=== PATIENT | female | born 1965 | race Caucasian/White ===

== ENCOUNTER 2020-10-26 01:26 | Emergency (ER) | payer MEDICARE, MEDICAID, SELFPAY ==
[2020-10-26 01:27] VITALS: BP 126/79; PULSE 91; RESP 18; TEMP 36.7; O2SAT 95
--- NOTE | 2020-10-26 01:36 | W.ED.SEIZURE ---
HPI - Seizure General: Chief Complaint: Seizure Stated Complaint: SEIZURE Time Seen by Provider: 10/26/20 01:27 Source: patient and EMS Mode of arrival: EMS Limitations: no limitations History of Present Illness: HPI Narrative: 55-year-old female who has a history of seizures and states she has not taken her Depakote in 2 weeks because she has been out of it. Patient had 3 witnessed seizures tonight after drinking. She states she has some body aches and a mild headache that is typical after her seizures. She denies any chest pain denies hitting her head. She denies any vomiting or diarrhea. Associated symptoms: Deny chest pain, chills or fever(s) Review of Systems Const: Denies: fever(s), chills, body aches or change in appetite Eyes: Denies: blurry vision or eye discomfort ENMT: Denies: throat pain or dental pain Card: Denies: chest pain Resp: Denies: dyspnea GI: Denies: abdominal pain, nausea, vomiting or diarrhea : Denies: dysuria Musc: Denies: neck pain or back pain Skin/Breast: Denies: rash Neuro: Reports: seizure-like activity Psych: Denies: depression Roderick/Lymph: Denies: easy bruising All/Imm: Denies: urticaria PFSH ED PFSH: Medical History (Updated 10/26/20 @ 02:18 by Nicol Paz MD) Chest pain COPD (chronic obstructive pulmonary disease) CVA (cerebral vascular accident) Dental infection Essential hypertension GERD (gastroesophageal reflux disease) Insect bites Mixed hyperlipidemia Oral candidiasis Surgical History History of appendectomy History of carpal tunnel surgery History of tubal ligation S/P insertion of iliac artery stent 3 stents right leg Social History Smoking and tobacco status: current every day smoker Quit status (tobacco): not considering quitting Second hand smoke exposure: No Smoking risk assessment/counseling performed?: No Alcohol intake: never Desire information about alcohol rehabilitation?: No Counseling given: No Desire information about substance/drug rehabilitation?: No Counseling given: No Physical Exam Const: COMMON NORMALS: no acute distress, patient oriented x3 and healthy appearing HENMT: COMMON NORMALS: normocephalic and atraumatic HEAD & SCALP: normocephalic and atraumatic Eye: COMMON NORMALS: Equal, round and reactive pupils present and EOMs intact bilaterally PUPIL: Yes Equal, round and reactive pupils present Neck/C-Spine: COMMON NORMALS: full ROM and supple Chest: COMMONS NORMALS: normal inspection of the chest and normal palpation of entire chest wall Resp: COMMON NORMALS: normal respiratory effort, No retractions, No use of accessory muscles and clear to auscultation bilaterally AUSCULTATION: clear to auscultation bilaterally Cardio: COMMON NORMALS: regular rate, regular rhythm and No murmurs present (Cardio) RATE: regular rate RHYTHM: regular rhythm GI: COMMON NORMALS: Normal to inspection, nondistended, normoactive bowel sounds present, Soft to palpation, non-tender and no masses PALPATION: Yes Soft to palpation Extremity: COMMON NORMALS: normal to inspection and full ROM Neuro: COMMON NORMALS: patient oriented x3, moves all extremities and no focal motor deficits Psych: COMMON NORMALS: mental status grossly normal, Normal thought process present and cooperative THOUGHT PROCESS: Normal thought process present Skin: COMMON NORMALS: no rashes or lesions noted and no wounds GENERAL SKIN EXAM: no rashes or lesions noted Course Vital Signs: Vital signs: Vital Signs Temperature 98.1 F 10/26/20 01:27 Pulse Rate 105 H 10/26/20 03:15 Respiratory Rate 18 10/26/20 03:15 Blood Pressure 92/56 10/26/20 03:15 Pulse Oximetry 92 10/26/20 03:15 MDM - Seizure MDM Narrative: Medical decision making narrative: pt presents here with seizure and has a hx of seizures. She has been noncompliant with her depakote. She has been seizure free here and labs are normal. She is to take her meds and return if worsening. Lab Data: Labs: Lab Results 10/26/20 10/26/20 10/26/20 Range/Units 00:15 00:15 01:42 WBC 8.2 (4.0-10.0) 10^3/ uL RBC 4.94 (4.1-5.3) 10^6/u L Hgb 14.4 (11.5-15.3) g/dL Hct 43.6 (37.0-47.0) % MCV 88.3 (81-99) fL MCH 29.1 (28.0-34.0) pg MCHC 33.0 (30.0-36.0) g/dL RDW 12.6 (12.1-15.1) % Plt Count 245 (130-400) 10^3/c mm MPV 11.0 H (7.4-10.4) fL Neut % (Auto) 40.3 % Lymph % (Auto) 50.2 % [place] % (Auto) 7.3 % Eos % (Auto) 1.3 % Baso % (Auto) 0.7 % Neut # (Auto) 3.29 (1.8-7.7) 10^3/u L Lymph # (Auto) 4.1 (0.8-4.8) 10^3/u L [place] # (Auto) 0.6 (0.2-0.9) 10^3/u L Eos # (Auto) 0.1 (0.0-0.8) 10^3/u L Baso # (Auto) 0.1 (0.0-0.1) 10^3/u L Nucleated RBC % (a uto) 0 % Nucleated RBCs # 0.0 /100WBC Sodium 139 (136-145) mmol/L Potassium 3.4 L (3.5-5.1) mmol/L Chloride 103 (98-107) mmol/L Carbon Dioxide 20 L (22-29) mmol/L Anion Gap 19.4 H (5-19) BUN 11 (6-20) mg/dL Creatinine 0.6 (0.5-0.9) mg/dL GFR Calculation 104.6 (90-130) mL/min Glucose 98 (65-115) mg/dL Calculated Osmolal ity 287 (285-295) mOsm/k g Calcium 8.8 (8.5-10.5) mg/dL Total Bilirubin 0.2 (0.15-1.2) mg/dL AST 12 (0-32) U/L ALT 18 (0-33) U/L Alkaline Phosphata se 77 (35-105) IU/L Total Protein 6.7 (6.6-8.7) g/dL Albumin 4.0 (3.5-5.2) g/dL Globulin 2.7 (1.3-4.6) g/dL Valproic Acid 2.8 L (50-100) ug/mL Discharge Plan Discharge Patient Disposition: Home Clinical Impression: Generalized seizure Condition: Stable Prescriptions: New Depakote 250 mg tablet,delayed release (DR/EC) 250 mg PO Q12H Qty: 60 RF: 1 No Action ranolazine [Ranexa] 500 mg tablet extended release 12 hr 500 mg PO DAILY RF: 0 albuterol sulfate [ProAir HFA] 90 mcg/actuation HFA aerosol inhaler 2 puff INHALATION Q6H PRN (Reason: shortness of breath or wheezing) 90 Days Qty: 8.5 RF: 1 atorvastatin 40 mg tablet 40 mg PO DAILY 90 Days Qty: 90 RF: 1 clopidogrel 75 mg tablet 75 mg PO DAILY 90 Days Qty: 90 RF: 1 losartan 25 mg tablet 25 mg PO DAILY 90 Days Qty: 90 RF: 1 metoprolol succinate 25 mg tablet extended release 24 hr 25 mg PO DAILY 90 Days Qty: 90 RF: 1 pantoprazole 40 mg tablet,delayed release (DR/EC) 40 mg PO DAILY 90 Days Qty: 90 RF: 1 nitroglycerin 0.3 mg tablet, sublingual 0.3 mg sublingual Q5M Qty: 30 RF: 2 aspirin 81 mg tablet,chewable PO RF: 0 Magic Mouthwash 5 - 10 ml PO QID PRN (Reason: oral candidiasis) 14 Days Qty: 400 RF: 0 Discharge Orders: Discharge ED (Routine); Ordered 10/26/20 Ordered By: Nicol Paz Referrals: Esperanza Coon CUSTOMER CONTACT REPRESENTATIVE-C [Primary Care Provider] - 1-3 days Discharge Diet: Advance as tolerated Discharge Activity: Resume usual activity Patient Instructions: Recurrent Seizures Adult (ED) Coding Level of Care Code ED Boom Boss for Chg Fwd Exam Comprehensive
[2020-10-26 01:48] LABS: Basophils # 0.1 10^3/uL (0.0-0.1); Basophils % 0.7 %; Eosinophils # 0.1 10^3/uL (0.0-0.8); Eosinophils % 1.3 %; Hematocrit 43.6 % (37.0-47.0); Hemoglobin 14.4 g/dL (11.5-15.3); Lymphocytes # 4.1 10^3/uL (0.8-4.8); Lymphocytes % 50.2 %; Mean Corpuscular Hemoglobin 29.1 pg (28.0-34.0); Mean Corpuscular Volume 88.3 fL (81-99); Monocytes # 0.6 10^3/uL (0.2-0.9); Monocytes % 7.3 %; Neutrophils # 3.29 10^3/uL (1.8-7.7); Neutrophils % 40.3 %; Nucleated Red Blood Cells % 0 %; Platelet Count 245 10^3/cmm (130-400); Red Blood Count 4.94 10^6/uL (4.1-5.3); Red Cell Distribution Width 12.6 % (12.1-15.1); White Blood Count 8.2 10^3/uL (4.0-10.0)
[2020-10-26 02:03] LABS: Alanine Aminotransferase 18 U/L (0-33); Alkaline Phosphatase 77 IU/L (35-105); Aspartate Amino Transferase 12 U/L (0-32); Blood Urea Nitrogen 11 mg/dL (6-20); Calcium 8.8 mg/dL (8.5-10.5); Carbon Dioxide 20 mmol/L (22-29); Chloride 103 mmol/L (98-107); Globulin 2.7 g/dL (1.3-4.6); Glomerular Filtration Rate 104.6 mL/min (90-130); Glucose 98 mg/dL (65-115); Osmolality Calculated 287 mOsm/kg (285-295); Sodium 139 mmol/L (136-145); Total Bilirubin 0.2 mg/dL (0.15-1.2); Total Protein 6.7 g/dL (6.6-8.7)
[2020-10-26] MEDS: LORazepam 2 mg/mL INJ 1 mL 1 MG IVP (02:06)
[2020-10-26 02:08] VITALS: BP 105/68; PULSE 95; RESP 18; O2SAT 94
[2020-10-26 02:08] LABS: Valproic Acid Level 2.8 ug/mL (50-100)
[2020-10-26] MEDS: divalproex DR 500 mg Tablet PO (02:20)
[2020-10-26 02:24] LABS: Anion Gap 19.4 (5-19); Potassium 3.4 mmol/L (3.5-5.1)
[2020-10-26 03:15] VITALS: BP 92/56; PULSE 105; RESP 18; O2SAT 92
== END 2020-10-26 03:16 | disposition home or self-care (01) ==
PROVIDERS: Emergency Provider Emergency Medicine; PCP Nurse Practitioner Family
DX: G40.409 Other generalized epilepsy and epileptic syndromes, not intractable, without status epilepticus (principal); J44.9 Chronic obstructive pulmonary disease, unspecified; Z86.73 Personal history of transient ischemic attack (TIA), and cerebral infarction without residual deficits; I10 Essential (primary) hypertension; E78.2 Mixed hyperlipidemia; F17.210 Nicotine dependence, cigarettes, uncomplicated
CPT/HCPCS: 80053; 80164; 85025; 96374; 99283; J2060

== ENCOUNTER → 2020-11-17 11:38 | Outpatient (BNVA) | payer MEDICARE, SELFPAY | PROVIDERS: PCP Nurse Practitioner Family; Visit Provider Nurse Practitioner Family | DX: N39.0 Urinary tract infection, site not specified (principal); A49.9 Bacterial infection, unspecified; R31.29 Other microscopic hematuria | CPT/HCPCS: 81003; 87086 ==

== ENCOUNTER → 2021-01-05 08:46 | Outpatient (BNVA) | payer MEDICARE, SELFPAY | PROVIDERS: PCP Nurse Practitioner Family; Visit Provider Nurse Practitioner Family | DX: E78.2 Mixed hyperlipidemia (principal); I10 Essential (primary) hypertension; E55.9 Vitamin D deficiency, unspecified; L02.214 Cutaneous abscess of groin; Z79.899 Other long term (current) drug therapy | CPT/HCPCS: 80053; 80061; 81003; 82306; 83036; 84443; 85025 ==

== ENCOUNTER 2021-01-10 06:42 | Outpatient (CLI) | payer MEDICARE, MEDICAID, SELFPAY ==
--- NOTE | 2021-01-10 06:49 | USCV_ITS ---
Nicky Rhodes Age: 55 Gender: F : 1965 Exam Date: 01/10/2021 07:01 Ordering Phys: Cristin Escobedo MD ([email or web address]) Technologist: Chioma Kwong [place] [facility] [place]ication: PRIOR STENTS BILATERALLY AND NOW LEG PAIN Risk Factors: Smoker Previous Vascular Surgery: Stents bilaterally RIGHT LEFT BP: 118.0 / BP: 120.0/ 0 0 Waveform Velocity (cm/s) Velocity (cm/s) Waveform Biphasic 94.8 Iliac Prox 117.4 Biphasic Biphasic Iliac Mid Biphasic 93.9 105.2 Biphasic 88.6 Iliac Distal 101.5 Biphasic Biphasic 66.2 BREASTFEEDING PROGRAM COORDINATOR 44.9 Biphasic Biphasic 70.6 SFA Prox 57.1 Biphasic Biphasic 63.9 SFA Mid 54.9 Biphasic Biphasic 59.5 SFA Dist 54.2 Biphasic Biphasic 43.0 POP 32.1 Biphasic Biphasic 65.1 BUTTON BRADDER 49.9 Biphasic Biphasic 27.6 DPA 25.7 Biphasic 1.0 ERIC 1.0 FINDINGS rt fire captain marine 108 rt dpa 120 lt fire captain marine 105 lt dpa 118 Normal resting ABIs bilaterally Normal Doppler flow velocities Mild to moderate plaque in the distal iliac on the right side Minimal plaques are noted in the iliac artery on the left side CONCLUSIONS No significant arterial obstruction, based on the above findings Mild to moderate plaques in the right iliac and minimal plaques in the left iliac artery . No similar previous studies are available for comparison Dr Lisbet Omer MD [facility] (Electronically Signed) Final Date: 10 January 2021 14:13 S
== END 2021-01-10 06:43 | disposition home or self-care (01) ==
PROVIDERS: PCP Nurse Practitioner Family; Visit Provider Internal Medicine Cardiovascular Disease
DX: I73.9 Peripheral vascular disease, unspecified (principal); M79.604 Pain in right leg; M79.605 Pain in left leg
CPT/HCPCS: 93925

== ENCOUNTER → 2021-01-24 11:41 | Outpatient (BNVA) | payer MEDICARE, SELFPAY | PROVIDERS: PCP Nurse Practitioner Family; Visit Provider Nurse Practitioner Family | DX: A49.9 Bacterial infection, unspecified (principal); N39.0 Urinary tract infection, site not specified | CPT/HCPCS: 81003; 88112 ==

== ENCOUNTER → 2021-01-25 09:22 | Outpatient (BNVA) | payer MEDICARE, SELFPAY | PROVIDERS: PCP Nurse Practitioner Family; Visit Provider Nurse Practitioner Family | DX: A49.9 Bacterial infection, unspecified (principal); N39.0 Urinary tract infection, site not specified | CPT/HCPCS: 87086 ==

== ENCOUNTER → 2021-03-12 09:15 | Outpatient (BNVA) | payer MEDICARE, MEDICAID, SELFPAY | PROVIDERS: PCP Nurse Practitioner Family; Visit Provider Nurse Practitioner Family | DX: L03.90 Cellulitis, unspecified (principal); R14.0 Abdominal distension (gaseous); R10.9 Unspecified abdominal pain | CPT/HCPCS: 74018; 80053; 82150; 83690; 85025; 86140 ==

== ENCOUNTER 2021-03-15 10:27 | Emergency (ER) | payer MEDICARE, MEDICAID, SELFPAY ==
[2021-03-15 10:36] VITALS: BP 138/72; PULSE 76; RESP 19; TEMP 37; O2SAT 95
--- NOTE | 2021-03-15 11:16 | US_ITS ---
WS: [id number] Abdominal ultrasound, limited. History: Evaluate for ascites. Comparison: None. All 4 quadrants are imaged by ultrasound to evaluate for ascites. There is no peritoneal fluid identi fied. US/US abdomen lmt fluid [id number] IMPRESSION: No peritoneal ascites.
--- NOTE | 2021-03-15 11:18 | ED_ITS ---
HPI - Recheck/Abnormal Lab/Rx General: Chief Complaint: Recheck/Abnormal Lab/Rx Stated Complaint: ABD PAIN, LABS OFF , PCP WANTS U/S Time Seen by Provider: 03/15/21 11:06 History of Present Illness: HPI narrative: This patient is a 55-year-old female who presents to the emergency room for abdominal swelling and bloating. Patient states this been going on for couple of weeks was advised to come to the emergency department by PCP for possible ultrasound. Patient missed that she does drink [place] [employer] occasionally over the past 15 years denies any significant medical issues. Will do medical evaluation treat as needed Review of Systems General: Reports: 10 or more systems reviewed and unremarkable except in HPI and below Const: Denies: fever(s), chills, body aches or fatigue Eyes: Denies: change in vision or blurry vision ENMT: Denies: throat pain, hoarseness or mouth pain Card: Denies: chest pain, palpitations, irregular heart rhythm, edema, swelling of feet/ankles or lightheadedness Resp: Denies: dyspnea, productive cough, non-productive cough, wheezing or pain on inspiration GI: Reports: abdominal pain and bloating; Denies: nausea or vomiting : Denies: flank pain, difficulty voiding, dysuria, urinary frequency, urinary urgency or urinary hesitancy Musc: Denies: neck pain, back pain, extremity pain, extremity swelling, joint pain, joint swelling, joint redness, joint warmth or limited range of motion Skin/Breast: Denies: rash, pruritus, erythema or skin tenderness Neuro: Denies: headache(s), numbness in extremities or weakness in extremities Psych: Denies: anxiety or depression [facility] ED PFSH: Medical History Abdominal bloating Abdominal pain Bacterial UTI CAD (coronary artery disease) Cellulitis Cerumen impaction Cerumen impaction Chest pain COPD (chronic obstructive pulmonary disease) CVA (cerebral vascular accident) Dental infection Environmental and seasonal allergies Essential hypertension Fever blister GERD (gastroesophageal reflux disease) Hematuria Insect bites Lower respiratory infection Medication management Microscopic hematuria Mixed hyperlipidemia Oral candidiasis Vitamin D deficiency Surgical History History of appendectomy History of carpal tunnel surgery History of tubal ligation S/P insertion of iliac artery stent 3 stents right leg Family History Grandfather CAD (coronary artery disease) Grandmother CAD (coronary artery disease) Father CAD (coronary artery disease) Myocardial infarction Age 50s Brother CAD (coronary artery disease) FH: CABG (coronary artery bypass surgery) Other Asthma Social History Smoking and tobacco status: current every day smoker Quit status (tobacco): not considering quitting Second hand smoke exposure: No Smoking risk assessment/counseling performed?: No Alcohol intake: never Desire information about alcohol rehabilitation?: No Counseling given: No Desire information about substance/drug rehabilitation?: No Counseling given: No Physical Exam Const: COMMON NORMALS: no acute distress, average body habitus, patient oriented x3, no limitations, healthy appearing, alert and well nourished HENMT: COMMON NORMALS: normocephalic, atraumatic, hearing grossly normal bilaterally, external ears normal, EAC's normal, TM's normal bilaterally, Normal external nose present, Normal nasal mucous membranes and turbinates present, moist oral mucous membranes, oropharynx normal, dentition normal and gingiva normal HEAD & SCALP: normocephalic and atraumatic NOSE: Normal external nose present and Normal nasal mucous membranes and turbinates present EXTERNAL EAR: Yes external ears normal EXTERNAL AUDITORY CANAL: EAC's normal TYMPANIC MEMBRANE: TM's normal bilaterally Neck/C-Spine: COMMON NORMALS: full ROM, no lymphadenopathy, supple, no meningeal signs, no JVD, Thyroid normal and No carotid bruits THYROID: Thyroid normal Chest: COMMONS NORMALS: normal inspection of the chest, normal palpation of entire chest wall, normal inspection of the breasts and normal palpation of the breasts Breast/axilla inspection: Yes normal inspection of the breasts BREAST/AXILLA PALPATION: Yes normal palpation of the breasts Resp: COMMON NORMALS: normal respiratory effort, No retractions, No use of accessory muscles, clear to auscultation bilaterally and percussion normal AUSCULTATION: clear to auscultation bilaterally PERCUSSION: percussion normal Cardio: COMMON NORMALS: no JVD, regular rate, regular rhythm, S1 normal heart sound present, S2 normal heart sound present, No gallops present (Cardio), No clicks present (Cardio), No murmurs present (Cardio), No rub (Cardio) and Peripheral pulses 2+ throughout RATE: regular rate RHYTHM: regular rhythm HEART SOUNDS: S1 normal heart sound present and S2 normal heart sound present PERIPHERAL PULSES: Peripheral pulses 2+ throughout GI: COMMON NORMALS: Soft to palpation, non-tender, No hepatosplenomegaly present, no masses and no bruits INSPECTION: Yes abdominal distension PA LPATION: Yes Soft to palpation and Yes No hepatosplenomegaly present : COMMON NORMALS: Yes no CVA tenderness, Yes normal external appearance, Yes normal appearance of the vagina, Yes normal appearance of the cervix, Yes normal bimanual exam, Yes No adnexal tenderness and Yes no masses BLADDER/KIDNEY EXAM: Yes no CVA tenderness BIMANUAL EXAM - VAGINA & UTERUS: Yes normal bimanual exam Back/Pelvis: COMMON NORMALS: no CVA tenderness, thoracic and lumbar spine normal to inspection, no thoracic nor lumbar tenderness, thoraco-lumbar ROM normal and straight leg raise negative bilaterally Extremity: COMMON NORMALS: normal to inspection, full ROM, capillary refill normal, no joint enlargement, no clubbing, cyanosis or edema, no calf tenderness and no pedal edema Neuro: COMMON NORMALS: patient oriented x3 SENSORIUM/ORIENTATION: Yes alert MENINGEAL SIGNS: Yes no meningeal signs Course Reevaluation(s): Reevaluation #1: Negative evaluation in the emergency department for any acute findings. Patient will be discharged home patient is to follow-up with primary care physician in 2 to 3 days. Patient should encourage p.o. fluids [id number] laxatives as needed for any constipation. Tylenol Motrin as needed for any fever pain. Time: 12:54 Vital Signs: Vital signs: Vital Signs Temperature 98.6 F 03/15/21 10:36 Pulse Rate 78 03/15/21 12:05 Respiratory Rate 16 03/15/21 12:05 Blood Pressure 135/72 03/15/21 12:05 Pulse Oximetry 95 03/15/21 12:05 MDM - Recheck/Abnormal Lab/Rx MDM Narrative: Medical decision making narrative: Negative evaluation in the emergency department for any acute findings. Patient will be discharged home patient is to follow-up with primary care physician in 2 to 3 days. Patient should encourage p.o. fluids [id number] laxatives as needed for any constipation. Tylenol Motrin as needed for any fever pain. Lab Data: Labs: Lab Results 03/15/21 03/15/21 03/15/21 Range/Units 11:45 11:45 11:45 WBC 7.9 (4.0-10.0) 10^3/ uL RBC 4.82 (4.1-5.3) 10^6/u L Hgb 14.3 (11.5-15.3) g/dL Hct 43.2 (37.0-47.0) % MCV 89.6 (81-99) fl MCH 29.7 (28.0-34.0) pg MCHC 33.1 (30.0-36.0) g/dL RDW 13.0 (12.1-15.1) % Plt Count 246 (130-400) 10^3/c mm MPV 10.0 (7.4-10.4) fL Neut % (Auto) 52.3 % Lymph % (Auto) 39.3 % [place] % (Auto) 6.4 % Eos % (Auto) 1.0 % Baso % (Auto) 0.6 % Neut # (Auto) 4.14 (1.8-7.7) 10^3/u L Lymph # (Auto) 3.1 (0.8-4.8) 10^3/u L [place] # (Auto) 0.5 (0.2-0.9) 10^3/u L Eos # (Auto) 0.1 (0.0-0.8) 10^3/u L Baso # (Auto) 0.1 (0.0-0.1) 10^3/u L Nucleated RBC % (a uto) 0 % Nucleated RBCs # 0.0 /100WBC PT 12.20 (12.1-14.9) SECO NDS INR 0.88 (0.8-1.2) APTT 26.7 (23.9-36.7) SECO NDS Sodium 137 (136-145) mmol/L Potassium 3.9 (3.5-5.1) mmol/L Chloride 102 (98-107) mmol/L Carbon Dioxide 26 (22-29) mmol/L Anion Gap 12.9 (5-19) BUN 11 (6-20) mg/dL Creatinine 0.5 (0.5-0.9) mg/dL GFR Calculation 129.1 (90-130) mL/min Glucose 83 (65-115) mg/dL Calculated Osmolal ity 283 L (285-295) mOsm/k g Calcium 9.1 (8.5-10.5) mg/dL Total Bilirubin 0.3 (0.15-1.2) mg/dL AST 12 (0-32) U/L ALT 17 (0-33) U/L Alkaline Phosphata se 83 (35-105) IU/L Total Protein 6.5 L (6.6-8.7) g/dL Albumin 3.9 (3.5-5.2) g/dL Globulin 2.6 (1.3-4.6) g/dL Lipase 61 H (13-60) U/L Urine Color (Yellow) Urine Appearance (CLEAR) Urine pH (5-7) Ur Specific Gravit y (1.005-1.030) Urine Protein (Negative) Urine Glucose (UA) (Normal) Urine Ketones (Negative) Urine Blood (Negative) Urine Nitrate (Negative) Urine Bilirubin (Negative) Urine Urobilinogen (Negative) mg/dL Ur Leukocyte Kayla ase (Negative) Urine RBC (0-2) /hpf Urine WBC (0-5) /hpf Ur Squamous Epith Cells (0-5) /hpf Amorphous Sediment Urine Bacteria (NONE) /hpf Urine Opiates Scre en (Negative) ng/mL Ur Barbiturates Sc reen (Negative) ng/mL Ur Phencyclidine S crn (Negative) ng/mL Ur Amphetamines Sc reen (Negative) ng/mL U Benzodiazepines Scrn (Negative) ng/mL Urine Cocaine Scre en (Negative) ng/mL U Marijuana (THC) Screen (Negative) ng/mL 03/15/21 03/15/21 Range/Units 12:00 12:00 WBC (4.0-10.0) 10^3/ uL RBC (4.1-5.3) 10^6/u L Hgb (11.5-15.3) g/dL Hct (37.0-47.0) % MCV (81-99) fl MCH (28.0-34.0) pg MCHC (30.0-36.0) g/dL RDW (12.1-15.1) % Plt Count (130-400) 10^3/c mm MPV (7.4-10.4) fL Neut % (Auto) % Lymph % (Auto) % [place] % (Auto) % Eos % (Auto) % Baso % (Auto) % Neut # (Auto) (1.8-7.7) 10^3/u L Lymph # (Auto) (0.8-4.8) 10^3/u L [place] # (Auto) (0.2-0.9) 10^3/u L Eos # (Auto) (0.0-0.8) 10^3/u L Baso # (Auto) (0.0-0.1) 10^3/u L Nucleated RBC % (a uto) % Nucleated RBCs # /100WBC PT (12.1-14.9) SECO NDS INR (0.8-1.2) APTT (23.9-36.7) SECO NDS Sodium (136-145) mmol/L Potassium (3.5-5.1) mmol/L Chloride (98-107) mmol/L Carbon Dioxide (22-29) mmol/L Anion Gap (5-19) BUN (6-20) mg/dL Creatinine (0.5-0.9) mg/dL GFR Calculation (90-130) mL/min Glucose (65-115) mg/dL Calculated Osmolal ity (285-295) mOsm/k g Calcium (8.5-10.5) mg/dL Total Bilirubin (0.15-1.2) mg/dL AST (0-32) U/L ALT (0-33) U/L Alkaline Phosphata se (35-105) IU/L Total Protein (6.6-8.7) g/dL Albumin (3.5-5.2) g/dL Globulin (1.3-4.6) g/dL Lipase (13-60) U/L Urine Color Yellow (Yellow) Urine Appearance Clear (CLEAR) Urine pH 7 (5-7) Ur Specific Gravit y 1.010 (1.005-1.030) Urine Protein Neg (Negative) Urine Glucose (UA) Norm (Normal) Urine Ketones Negative (Negative) Urine Blood 2+ H (Negative) Urine Nitrate Negative (Negative) Urine Bilirubin Neg (Negative) Urine Urobilinogen Neg (Negative) mg/dL Ur Leukocyte Kayla ase Negative (Negative) Urine RBC 10-15 H (0-2) /hpf Urine WBC None (0-5) /hpf Ur Squamous Epith Cells None (0-5) /hpf Amorphous Sediment Not Reportable Urine Bacteria Trace (NONE) /hpf Urine Opiates Scre en Negative (Negative) ng/mL Ur Barbiturates Sc reen Negative (Negative) ng/mL Ur Phencyclidine S crn Negative (Negative) ng/mL Ur Amphetamines Sc reen Negative (Negative) ng/mL U Benzodiazepines Scrn Negative (Negative) ng/mL Urine Cocaine Scre en Negative (Negative) ng/mL U Marijuana (THC) Screen Negative (Negative) ng/mL Imaging Data^: KUB: Attestation: I personally reviewed and interpreted this imaging study as follows: Radiologist's impression: FINDINGS: Gastrointestinal tract: Bowel gas pattern is nondistended and nonobstructive. Vasculature: Incidental phleboliths noted. Vascular stent in the right common iliac artery area. Bones/joints: Osseous structures are unchanged from the prior exam. Other findings: Mild stool burden. XR/XR KUB [id number] IMPRESSION: 1. Normal bowel gas pattern 2. Mild stool burden. US: Attestation: I personally reviewed and interpreted this imaging study as follows: Radiologist's impression: IMPRESSION: No peritoneal ascites. Discharge Plan Discharge Patient Disposition: Home Clinical Impression: Abdominal bloating Condition: Stable Prescriptions: No Action albuterol sulfate [ProAir HFA] 90 mcg/actuation HFA aerosol inhaler 2 puff INHALATION Q6H PRN (Reason: shortness of breath or wheezing) 90 Days Qty: 8.5 RF: 1 simethicone [Gas Relief 80 (simethicone)] 80 mg tablet,chewable 80 mg PO QID PRN (Reason: abdominal distention) 30 Days Qty: 90 RF: 0 Advair HFA 115-21 mcg/actuation HFA aerosol inhaler 2 inh inhalation BID 90 Days Qty: 8 RF: 2 divalproex [Depakote] 250 mg tablet,delayed release (DR/EC) See Rx Instructions .ROUTE .COMPLEX RF: 0 Aspir-81 81 mg Tablet,Delayed Release (Dr/Ec) 81 mg PO QAM RF: 0 atorvastatin 40 mg tablet 40 mg PO BEDTIME RF: 0 nitroglycerin 0.3 mg tablet, sublingual 0.3 mg sublingual Q5M PRN (Reason: Chest Pain) RF: 0 clopidogrel 75 mg tablet 75 mg PO QAM RF: 0 cephalexin 500 mg capsule 500 mg PO BID RF: 0 acyclovir 5 % ointment 1 applic topical 6XD PRN (Reason: UNKNOWN) RF: 0 losartan 25 mg tablet 25 mg PO QAM RF: 0 metoprolol succinate 25 mg tablet extended release 24 hr 25 mg PO BEDTIME RF: 0 Dexilant 60 mg capsule,biphase delayed releas 60 mg PO DAILY RF: 0 Discharge Orders: Discharge ED (Routine); Ordered 03/15/21 Ordered By: Nino Lam Referrals: ALBERTO Escalona, LAUNDRY PRESS OPERATOR [Primary Care Provider] - Discharge Diet: Advance as tolerated Discharge Activity: Resume usual activity Patient Instructions: Opioid Safety Activity Restrictions/Additional Instructions: Negative evaluation in the emergency department for any acute findings. Patient will be discharged home patient is to follow-up with primary care physician in 2 to 3 days. Patient should encourage p.o. fluids [id number] laxatives as needed for any constipation. Tylenol Motrin as needed for any fever pain. Coding Level of Care Code ED Restaurant Area Director for Briana Fwkarol Exam Comprehensive
--- NOTE | 2021-03-15 11:36 | PC.PHAR ---
PT STATES SHE TAKES CARE OF HER OWN MEDICATIONS-RX FILLED ON 03/12/21 10D/S FOR KEFLEX 500MG BID -PT STATES HER DR DCED PT STATES SHE ONLY TOOK 2 DOSES-RX LAST FILLED ON 10/26/20 30D/S FOR DEPAKOTE DR 250MG Q12H PT STATES NOT TAKEN IN A FEW MONTHS BUT STATES SHOULD STILL BE ON-PT STATES SHE HASNT TAKEN PANTOPRAZOLE OR DEXILANT FOR 3 WEEKS-PT STATES SHE WAS ON PANTOPRAZOLE 40MG DAILY LAST FILLED ON 01/06/21 90D/S-BUT STATES IT WAS CHANGED TO DEXILANT 60MG LAST FILLED ON 12/12/20 90D/S
[2021-03-15 11:55] LABS: Basophils # 0.1 10^3/uL (0.0-0.1); Basophils % 0.6 %; Eosinophils # 0.1 10^3/uL (0.0-0.8); Hematocrit 43.2 % (37.0-47.0); Hemoglobin 14.3 g/dL (11.5-15.3); Lymphocytes # 3.1 10^3/uL (0.8-4.8); Lymphocytes % 39.3 %; Mean Corpuscular HGB Conc 33.1 g/dL (30.0-36.0); Mean Corpuscular Hemoglobin 29.7 pg (28.0-34.0); Mean Corpuscular Volume 89.6 fl (81-99); Monocytes # 0.5 10^3/uL (0.2-0.9); Monocytes % 6.4 %; Neutrophils # 4.14 10^3/uL (1.8-7.7); Neutrophils % 52.3 %; Nucleated Red Blood Cells % 0 %; Platelet Count 246 10^3/cmm (130-400); Red Blood Count 4.82 10^6/uL (4.1-5.3); White Blood Count 7.9 10^3/uL (4.0-10.0)
[2021-03-15 12:05] VITALS: BP 135/72; PULSE 78; RESP 16; O2SAT 95
[2021-03-15 12:15] LABS: INR 0.88 (0.8-1.2)
[2021-03-15 12:16] LABS: Partial Thromboplastin Time 26.7 SECONDS (23.9-36.7)
[2021-03-15 12:26] LABS: Add Urine Microscopic? YES; Bilirubin Urine Neg (Negative); Blood Urine 2+ (Negative); Glucose Urine UA Norm (Normal); Ketones Urine Negative (Negative); Leukocyte Esterase Urine Negative (Negative); Nitrate Urine Negative (Negative); Protein Urine Neg (Negative); Urine Appearance Clear (CLEAR); Urine Color Yellow (Yellow); Urobilinogen Urine Neg (Negative); pH Urine 7 (5-7)
[2021-03-15 12:32] LABS: Amphetamines Screen Urine Negative (Negative); Barbiturates Screen Urine Negative (Negative); Benzodiazepines Screen Urine Negative (Negative); Cocaine Screen Urine Negative (Negative); Opiate Screen Urine Negative (Negative); PCP Screen Urine Negative (Negative); THC Screen Urine Negative (Negative)
[2021-03-15 12:40] LABS: Bacteria Urine TRACE /hpf
[2021-03-15 12:47] LABS: Alanine Aminotransferase 17 U/L (0-33); Albumin Level 3.9 g/dL (3.5-5.2); Alkaline Phosphatase 83 IU/L (35-105); Anion Gap 12.9 (5-19); Aspartate Amino Transferase 12 U/L (0-32); Blood Urea Nitrogen 11 mg/dL (6-20); Calcium 9.1 mg/dL (8.5-10.5); Carbon Dioxide 26 mmol/L (22-29); Chloride 102 mmol/L (98-107); Globulin 2.6 g/dL (1.3-4.6); Glomerular Filtration Rate 129.1 mL/min (90-130); Glucose 83 mg/dL (65-115); Lipase 61 U/L (13-60); Osmolality Calculated 283 mOsm/kg (285-295); Potassium 3.9 mmol/L (3.5-5.1); Sodium 137 mmol/L (136-145); Total Bilirubin 0.3 mg/dL (0.15-1.2); Total Protein 6.5 g/dL (6.6-8.7)
[2021-03-15 13:23] VITALS: BP 106/81; PULSE 74; RESP 16; O2SAT 100
== END 2021-03-15 13:25 | disposition home or self-care (01) ==
PROVIDERS: Emergency Provider Emergency Medicine; PCP Nurse Practitioner Family
DX: R14.0 Abdominal distension (gaseous) (principal); Z79.02 Long term (current) use of antithrombotics/antiplatelets; I25.10 Atherosclerotic heart disease of native coronary artery without angina pectoris; J44.9 Chronic obstructive pulmonary disease, unspecified; Z86.73 Personal history of transient ischemic attack (TIA), and cerebral infarction without residual deficits; I10 Essential (primary) hypertension; E78.2 Mixed hyperlipidemia; F17.210 Nicotine dependence, cigarettes, uncomplicated
CPT/HCPCS: 76705; 80053; 80306; 81001; 83690; 85025; 85610; 85730; 99283

== ENCOUNTER → 2021-06-06 08:21 | Outpatient (BNVA) | payer MEDICARE, MEDICAID, SELFPAY | PROVIDERS: PCP Nurse Practitioner Family; Visit Provider Nurse Practitioner Family | DX: M79.641 Pain in right hand (principal) | CPT/HCPCS: 73130 ==

== ENCOUNTER 2021-12-12 09:15 | Emergency (ER) | payer MEDICARE, MEDICAID, SELFPAY ==
[2021-12-12 09:20] VITALS: BP 142/81; PULSE 60; RESP 16; TEMP 36.6; O2SAT 95; BMI 23.7
--- NOTE | 2021-12-12 09:25 | ECG_ITS ---
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 Measurements Intervals [place] Rate: 66 P: DE: QRS: 71 QRSD: 88 T: 78 QT: 416 QTc: 439 Interpretive Statements POSSIBLE JUNCTIONAL RHYTHM Compared to ECG 02/27/2018 21:12:49 Sinus rhythm no longer present Electronically Signed On 12-12-2021 20:22:20 CDT by Cristin Escobedo M.D. [id number]
--- NOTE | 2021-12-12 09:25 | CT_ITS ---
WS: [id number] CT HEAD TECHNIQUE: Noncontrast CT of the head obtained from the skullbase to the vertex. CLINICAL INFORMATION: facial numbness COMPARISON: CT 2018 DLP: 746.[address] scans at [facility] use at least one of these dose optimization techniques: automated e xposure control; mA and/or kV adjustment per patient size (includes targeted exams where dose is matc hed to clinical indication); or iterative reconstruction. FINDINGS: No evidence of intracranial hemorrhage or mass effect. Ventricular system and basal cisterns are quintanilla nt. Mild parenchymal volume loss. No extra-axial fluid collections. No evidence of mass or mass effec t. Incidental slightly low-lying cerebellar tonsils. Intracranial vascular calcification. Paranasal sinuses and mastoid air cells are well aerated. .Normal visualized soft tissues. CT/CT head wo con* [id number] IMPRESSION: 1. No evidence of intracranial hemorrhage or mass effect. 2. Mild parenchymal volume loss. 3. No acute intracranial findings.
--- NOTE | 2021-12-12 09:38 | CT_ITS ---
WS: [id number] CTA HEAD AND NECK TECHNIQUE: Contrast enhanced CTA of the head and neck with coronal and sagittal reformatted images an d maximum intensity projection (MIP) images. NASCET criteria utilized. CLINICAL INFORMATION: TIA COMPARISON: None. DLP: 2023.[address] scans at [facility] use at least one of these dose optimization techniques: automated e xposure control; mA and/or kV adjustment per patient size (includes targeted exams where dose is matc hed to clinical indication); or iterative reconstruction. FINDINGS: RIGHT: RIGHT common carotid artery is patent. No significant RIGHT ICA stenosis. ICA is patent to the skull base. Cavernous carotid calcification. 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 LEFT: LEFT common carotid artery is patent. No significant LEFT ICA stenosis. LEFT ICA is patent to t he skull base. Cavernous carotid calcification. INTRACRANIAL CTA: Both vertebral arteries are patent. Proximal basilar artery is patent. Normal vascularity to the WO[employer]RA[employer] territory bilaterally. Both ICAs are patent at the skull base. Small 3 mm medially projecting RIGHT distal cavernous carotid artery aneurysm. Mild cavernous carotid calcification. Normal vascularity to the DAMIAN and MCA territo omaira bilaterally. No evidence of flow-limiting stenosis. Patent anterior communicating artery. Emphysematous changes in the lung apices. A few tiny low-attenuation LEFT thyroid nodules. CT/CT angio headneck* [id number] IMPRESSION: 1. No significant ICA stenosis bilaterally. Both ICAs are patent to the skull base. 2. No flow-limiting intracranial stenosis. 3. Tiny 3 mm medial projecting distal RIGHT cavernous carotid artery aneurysm. 4. No other acute findings. Notified Valente Medrano DO at 12/12/2021 10:48 AM.
--- NOTE | 2021-12-12 09:56 | ED_ITS ---
HPI - Neuro Symptoms/Deficit General: Chief Complaint: General Medical Stated Complaint: FACIAL NUMBNESS Time Seen by Provider: 12/12/21 09:18 Source: patient Mode of arrival: ambulatory Limitations: no limitations History of Present Illness: 56-year-old female presents emergency room with complaint of left side of her face her left arm and left leg being numb and tingly since 5:00 this afternoon. While in route to the ER her symptoms completely resolved she had a similar episode over the weekend and was flown to [facility] in [place] there she was told she had an aneurysm in her right carotid artery. They started her on Plavix and aspirin as well as atorvastatin. Patient is a smoker and is a history of peripheral artery disease previous iliac stenting. She denies any chest pain at this time no other symptoms initially on arrival her NIH is 0 Onset (ago): minute(s) Time: 09:15 Last Observed Normal: 17:00 Location: left face, left arm and left leg History of same: No Severity: moderate Quality: weak, numb and tingling Relieving factors: time Exacerbating factors: none Context: sudden onset Associated symptoms: Reports weakness; Deny chest pain, cough, diaphoresis, fevers/chills, headache(s), anorexia, malaise, nausea, seizures, short of breath, syncope, tingling, vertigo or vomiting Treatments Prior to Arrival: none Review of Systems Const: Denies: fever(s), chills, body aches, malaise or diaphoresis ENMT: Denies: throat pain, ear or mastoid pain, nasal discharge or nasal congestion Card: Reports: palpitations and irregular heart rhythm; Denies: chest pain or syncope Resp: Denies: dyspnea, productive cough or non-productive cough GI: Denies: abdominal pain, nausea or vomiting : Denies: flank pain, difficulty voiding, dysuria, urinary frequency or urinary urgency Skin/Breast: Denies: rash or pruritus Neuro: Reports: numbness in extremities, weakness in extremities and sensory changes; Denies: headache(s) or vertigo PFS ED PFSH: Medical History Abdominal bloating Abdominal pain Bacterial UTI CAD (coronary artery disease) Cellulitis Cellulitis of right thumb Cerumen impaction Cerumen impaction Chest pain COPD (chronic obstructive pulmonary disease) CVA (cerebral vascular accident) Dental infection Environmental and seasonal allergies Essential hypertension Fever blister GERD (gastroesophageal reflux disease) Hematuria Insect bites Lower respiratory infection Medication management Microscopic hematuria Mixed hyperlipidemia Oral candidiasis Vitamin D deficiency Surgical History History of appendectomy History of carpal tunnel surgery History of tubal ligation S/P insertion of iliac artery stent 3 stents right leg Family History Grandfather CAD (coronary artery disease) Grandmother CAD (coronary artery disease) Father CAD (coronary artery disease) Myocardial infarction Age 50s Brother CAD (coronary artery disease) FH: CABG (coronary artery bypass surgery) Other Asthma Social History Smoking and tobacco status: current every day smoker Quit status (tobacco): not considering quitting Second hand smoke exposure: No Smoking risk assessment/counseling performed?: No Alcohol intake: never Desire information about alcohol rehabilitation?: No Counseling given: No Desire information about substance/drug rehabilitation?: No Counseling given: No NIH stroke score NIHSS: Level Of Consciousness - 1a: 0 Level Of Consciousness Questions - 1b: Both Correct Level Of Consciousness Commands - 1c: Both Correct Best Gaze - 2: Normal Visual Almanza - 3: No Visual Loss Facial Palsy - 4: Normal Motor Arm Right - 5: No Drift Motor Arm Left - 5: No Drift Motor Leg Right - 6: No Drift Motor Leg Left - 6: No Drift Limb Ataxia - 7: Absent Sensory - 8: Normal Best Language - 9: No Aphasia Dysarthia - 10: Normal Extinction And Inattention - 11: 0 Score: Total Score: 0 Physical Exam Const: GENERAL APPEARANCE: cooperative and comfortable ORIENTATION/CONSCIOUSNESS: Yes awake, Yes oriented to person, Yes oriented to place and Yes oriented to time HENMT: COMMON NORMALS: normocephalic, atraumatic and hearing grossly normal bilaterally HEAD & SCALP: normocephalic and atraumatic Neck/C-Spine: COMMON NORMALS: no JVD Resp: COMMON NORMALS: normal respiratory effort, No retractions, No use of accessory muscles and clear to auscultation bilaterally AUSCULTATION: clear to auscultation bilaterally Cardio: COMMON NORMALS: no JVD, regular rate, regular rhythm and No murmurs present (Cardio) RATE: regular rate RHYTHM: regular rhythm GI: COMMON NORMALS: Soft to palpation and No hepatosplenomegaly present AUSCULTATION: Yes normoactive bowel sounds PALPATION: Yes Soft to palpation, No Tenderness to palpation present (GI), No Guarding due to palpation present (GI) and Yes No hepatosplenomegaly present Extremity: COMMON NORMALS: normal to inspection, capillary refill normal, no clubbing, cyanosis or edema, no calf tenderness and no pedal edema Neuro: SENSORIUM/ORIENTATION: Yes oriented to person, Yes oriented to place and Yes oriented to time Skin: COMMON NORMALS: no rashes or lesions noted GENERAL SKIN EXAM: no rashes or lesions noted Course Vital Signs: Vital signs: Vital Signs Temperature 97.8 F 12/12/21 09:20 Pulse Rate 90 12/12/21 12:45 Respiratory Rate 17 12/12/21 12:45 Blood Pressure 160/79 12/12/21 12:45 Pulse Oximetry 98 12/12/21 12:45 MDM - Neuro Symptoms/Deficit Medical Decision Making Patient continues to be asymptomatic. Repeat NIH score just prior to discharge is still 0. On arrival patient's initial EKG showed atrial fibrillation. There is a lot of artifact at the baseline but the QRSs are irregular looks like a slow A. fib. Repeat second EKG the rhythm strip initially shows A. fib there is not near as much artifact the second half of the rhythm strip there are P waves and looks like she is intermittently in a A. fib but still at a very well controlled rate. She not previously been known to have atrial fibrillation she is on metoprolol. Currently she is on dual platelet therapy. Patient prefers to go home I called and talked to Dr. Wyatt is on-call for Medical Records I reviewed the patient's medical records. Lab Data I reviewed the patient's lab results. : 12/12/21 09:50 12/12/21 09:[address] 12/12/21 09:25 IMPRESSION: 1. No evidence of intracranial hemorrhage or mass effect. 2. Mild parenchymal volume loss. 3. No acute intracranial findings. Head/Neck CTA 12/12/21 09:38 IMPRESSION: 1. No significant ICA stenosis bilaterally. Both ICAs are patent to the skull base. 2. No flow-limiting intracranial stenosis. 3. Tiny 3 mm medial projecting distal RIGHT cavernous carotid artery aneurysm. 4. No other acute findings. Notified Valente Medrano DO at 12/12/2021 10:48 AM. Laboratory Results WBC 7.0 10^3/uL (4.0-10.0) 12/12/21 09:50 RBC 4.96 10^6/uL (4.1-5.3) 12/12/21 09:50 Hgb 14.5 g/dL (11.5-15.3) 12/12/21 09:50 Hct 44.4 % (37.0-47.0) 12/12/21 09:50 MCV 89.5 fl (81-99) 12/12/21 09:50 MCH 29.2 pg (28.0-34.0) 12/12/21 09:50 MCHC 32.7 g/dL (30.0-36.0) 12/12/21 09:50 RDW 13.0 % (12.1-15.1) 12/12/21 09:50 Plt Count 280 10^3/cmm (130-400) 12/12/21 09:50 MPV 10.4 fL (7.4-10.4) 12/12/21 09:50 Neut % (Auto) 56.6 % 12/12/21 09:50 Lymph % (Auto) 34.8 % 12/12/21 09:50 Tama % (Auto) 6.7 % 12/12/21 09:50 Eos % (Auto) 0.9 % 12/12/21 09:50 Baso % (Auto) 0.6 % 12/12/21 09:50 Neut # (Auto) 3.95 10^3/uL (1.8-7.7) 12/12/21 09:50 Lymph # (Auto) 2.4 10^3/uL (0.8-4.8) 12/12/21 09:50 Tama # (Auto) 0.5 10^3/uL (0.2-0.9) 12/12/21 09:50 Eos # (Auto) 0.1 10^3/uL (0.0-0.8) 12/12/21 09:50 Baso # (Auto) 0.0 10^3/uL (0.0-0.1) 12/12/21 09:50 Nucleated RBC % (auto) 0 % 12/12/21 09:50 Nucleated RBCs # 0.0 /100WBC 12/12/21 09:50 Sodium 138 mmol/L (136-145) 12/12/21 09:50 Potassium 4.4 mmol/L (3.5-5.1) 12/12/21 09:50 Chloride 103 mmol/L (98-107) 12/12/21 09:50 Carbon Dioxide 26 mmol/L (22-29) 12/12/21 09:50 Anion Gap 13.4 (5-19) 12/12/21 09:50 BUN 10 mg/dL (6-20) 12/12/21 09:50 Creatinine 0.6 mg/dL (0.5-0.9) 12/12/21 09:50 GFR Calculation 104.2 mL/min (90-130) 12/12/21 09:50 Glucose 99 mg/dL (65-115) 12/12/21 09:50 Calculated Osmolality 285 mOsm/kg (285-295) 12/12/21 09:50 Calcium 8.7 mg/dL (8.5-10.5) 12/12/21 09:50 Total Bilirubin 0.2 mg/dL (0.15-1.2) 12/12/21 09:50 AST 15 U/L (0-32) 12/12/21 09:50 ALT 23 U/L (0-33) 12/12/21 09:50 Alkaline Phosphatase 80 IU/L (35-105) 12/12/21 09:50 Total Protein 6.4 g/dL (6.6-8.7) L 12/12/21 09:50 Albumin 4.1 g/dL (3.5-5.2) 12/12/21 09:50 Globulin 2.3 g/dL (1.3-4.6) 12/12/21 09:50 Discharge Plan Discharge Patient Disposition: Home Clinical Impression: TIA (transient ischemic attack), Intermittent atrial fibrillation Condition: Stable Prescriptions: New Xarelto 20 mg tablet 20 mg PO DAILY Qty: 30 0RF Rx Instructions: must administer with evening meal Discontinued clopidogrel 75 mg tablet See Rx Instructions .ROUTE .COMPLEX Qty: 90 0RF Dose Instruction: TAKE ONE TABLET BY MOUTH DAILY Rx Instructions: TAKE ONE TABLET BY MOUTH DAILY No Action metoprolol succinate 25 mg tablet extended release 24 hr 25 mg PO BID Qty: 180 1RF levofloxacin 750 mg tablet 750 mg PO Q24H 7 Days Qty: 7 0RF dexamethasone 6 mg tablet 6 mg PO DAILY 7 Days Qty: 7 0RF Mucinex 1,200 mg tablet extended release 12hr 1,200 mg PO BID PRN (Reason: cough) 30 Days Qty: 60 1RF budesonide-formoterol [Symbicort] 160-4.5 mcg/actuation HFA aerosol inhaler 2 inh inhalation BID Qty: 10.2 1RF divalproex [Depakote] 250 mg tablet,delayed release (DR/EC) See Rx Instructions .ROUTE .COMPLEX 0RF Rx Instructions: SEE PHARMACY COMMENTS ceftriaxone 1 gram recon soln 1 g IM ONCE Qty: 1 0RF sodium chloride 0.9 % Solution 1 ml IV ONCE Qty: 1 0RF albuterol sulfate 90 mcg/actuation HFA aerosol inhaler See Rx Instructions .ROUTE .COMPLEX Qty: 25.5 2RF Dose Instruction: INHALE 2 PUFFS BY MOUTH EVERY 6 HOURS NEEDED FOR SHORTNESS OF BREATH OR WHEEZING Rx Instructions: INHALE 2 PUFFS BY MOUTH EVERY 6 HOURS NEEDED FOR SHORTNESS OF BREATH OR WHEEZING atorvastatin 40 mg tablet See Rx Instructions .ROUTE .COMPLEX Qty: 90 1RF Dose Instruction: TAKE 1 TABLET BY MOUTH DAILY Rx Instructions: TAKE 1 TABLET BY MOUTH DAILY losartan 25 mg tablet See Rx Instructions .ROUTE .COMPLEX Qty: 90 0RF Dose Instruction: TAKE ONE TABLET BY MOUTH EVERY MORNING Rx Instructions: TAKE ONE TABLET BY MOUTH EVERY MORNING pantoprazole 40 mg tablet,delayed release (DR/EC) 40 mg PO DAILY 30 Days Qty: 30 5RF Aspir-81 81 mg Tablet,Delayed Release (Dr/Ec) 81 mg PO QAM 0RF nitroglycerin 0.3 mg tablet, sublingual 0.3 mg sublingual Q5M PRN (Reason: Chest Pain) 0RF Rx Instructions: do not exceed 3 doses per episode Dexilant 60 mg capsule,biphase delayed releas 60 mg PO DAILY 0RF Hold Instructions: Patient No Longer Taking Rx Instructions: Stop Protonix Discharge Orders: Discharge ED (Routine); Ordered 12/12/21 Ordered By: Valente Medrano Referrals: ALBERTO Escalona, CONTROL ROOM HELPER [Primary Care Provider] - Discharge Diet: Usual diet Discharge Activity: Increase activity as tolerated Patient Instructions: Opioid Safety Activity Restrictions/Additional Instructions: This management make arrangements for you to have a echocardiogram, 21-day event monitor, MRI of the head, and follow-up with neurology clinic here in [facility]. Coding Level of Care Code ED Minibus Driver for Briana Fwd Exam Comprehensive
[2021-12-12 10:08] LABS: Basophils % 0.6 %; Eosinophils # 0.1 10^3/uL (0.0-0.8); Eosinophils % 0.9 %; Hematocrit 44.4 % (37.0-47.0); Hemoglobin 14.5 g/dL (11.5-15.3); Lymphocytes # 2.4 10^3/uL (0.8-4.8); Lymphocytes % 34.8 %; Mean Corpuscular HGB Conc 32.7 g/dL (30.0-36.0); Mean Corpuscular Hemoglobin 29.2 pg (28.0-34.0); Mean Corpuscular Volume 89.5 fl (81-99); Mean Platelet Volume 10.4 fL (7.4-10.4); Monocytes # 0.5 10^3/uL (0.2-0.9); Monocytes % 6.7 %; Neutrophils # 3.95 10^3/uL (1.8-7.7); Neutrophils % 56.6 %; Nucleated Red Blood Cells % 0 %; Platelet Count 280 10^3/cmm (130-400); Red Blood Count 4.96 10^6/uL (4.1-5.3)
[2021-12-12 10:25] LABS: Alanine Aminotransferase 23 U/L (0-33); Albumin Level 4.1 g/dL (3.5-5.2); Alkaline Phosphatase 80 IU/L (35-105); Anion Gap 13.4 (5-19); Aspartate Amino Transferase 15 U/L (0-32); Blood Urea Nitrogen 10 mg/dL (6-20); Calcium 8.7 mg/dL (8.5-10.5); Carbon Dioxide 26 mmol/L (22-29); Chloride 103 mmol/L (98-107); Globulin 2.3 g/dL (1.3-4.6); Glomerular Filtration Rate 104.2 mL/min (90-130); Glucose 99 mg/dL (65-115); Osmolality Calculated 285 mOsm/kg (285-295); Potassium 4.4 mmol/L (3.5-5.1); Sodium 138 mmol/L (136-145); Total Bilirubin 0.2 mg/dL (0.15-1.2); Total Protein 6.4 g/dL (6.6-8.7)
[2021-12-12 10:30] VITALS: PULSE 69; O2SAT 96
[2021-12-12] MEDS: iodixanol 320 mg/mL 100mL Btl IV (10:32)
[2021-12-12 11:00] VITALS: BP 152/81; PULSE 58; O2SAT 97
[2021-12-12 11:30] VITALS: BP 145/82; PULSE 54; O2SAT 97
[2021-12-12 12:00] VITALS: BP 125/87; PULSE 66; O2SAT 94
[2021-12-12 12:45] VITALS: BP 160/79; PULSE 90; RESP 17; O2SAT 98
--- NOTE | 2021-12-13 09:24 | DCPLANNER ---
Addendum entered by Radha aNm 04/25/22 11:15: Patient did not attend appointment. Addendum entered by Radha Nam 04/12/22 14:16: Patient has a Echo cardiogram scheduled for Sunday, April 24, 2022 at 7:15. Centralized scheduling will call patient with appointment information. Patient has an MRI scheduled for Sunday, April 24, 2022 at 8:00. Centralized scheduling will call patient with appointment information. Original Note: healthcare consulting manager had message to schedule a follow up appointment for patient with neurology and cardiology. healthcare consulting manager sent patients information to the front office staff at both neurology and cardiology. Patients information will be printed and reviewed. Clinic will call patient with appointment information.
--- NOTE | 2021-12-18 09:35 | DCPLANNER ---
Addendum entered by Radha Nam 12/20/21 15:54: manager life insurance was told that clinics were unable to reach patient to schedule an appointment after several attempts were made. Addendum entered by Radha Nam 12/18/21 09:36: manager life insurance also had an order for a 21 day event monitor, it was faxed to heart care, who will call patient with appointment information. Original Note: manager life insurance had message to schedule an outpatient MRI and echo, casework specialist faxed signed order to centralized scheduling, who will call patient with appointment information.
== END 2021-12-12 12:46 | disposition home or self-care (01) ==
PROVIDERS: Emergency Provider Family Medicine; PCP Nurse Practitioner Family
DX: G45.9 Transient cerebral ischemic attack, unspecified (principal); F17.200 Nicotine dependence, unspecified, uncomplicated; I48.91 Unspecified atrial fibrillation; Z79.51 Long term (current) use of inhaled steroids; Z79.82 Long term (current) use of aspirin
CPT/HCPCS: 70450; 70496; 70498; 80053; 85025; 93005; 99284; Q9967

== ENCOUNTER 2022-03-24 21:02 | Emergency (ER) | payer MEDICARE, MEDICAID, SELFPAY ==
[2022-03-24 21:09] VITALS: BP 99/69; PULSE 89; RESP 18; TEMP 36.6; O2SAT 93; BMI 23.0
--- NOTE | 2022-03-24 22:03 | XRR_ITS ---
PROCEDURE INFORMATION: Exam: XR Chest Exam date and time: 03/24/2022 10:11 PM Age: 56 years old Clinical indication: Cough and fever; Patient HX: Cough with fever; Additional info: Body aches, cough, fever TECHNIQUE: Imaging protocol: Radiologic exam of the chest. Views: 1 view. COMPARISON: CR Chest 1 [place] [id number] 02/27/2018 7:18 PM FINDINGS: Lungs: Unremarkable. No consolidation. Pleural spaces: Unremarkable. No pleural effusion. No pneumothorax. Heart/Mediastinum: Unremarkable. No cardiomegaly. Bones/joints: Unremarkable. XR/XR chest 1V portable [id number] IMPRESSION: No acute findings.
--- NOTE | 2022-03-24 22:12 | ECG_ITS ---
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 Measurements Intervals [place] Rate: 73 P: 85 MD: 154 QRS: 78 QRSD: 85 T: 87 QT: 389 QTc: 430 Interpretive Statements SINUS RHYTHM INTERPRETATION BASED ON A DEFAULT AGE OF 40 YEARS Compared to ECG 12/12/2021 09:44:53 No significant changes Electronically Signed On 03-25-2022 7:26:11 CDT by Fransisco Bowden M.D. [id number]
[2022-03-24] MEDS: ondansetron 2 mg/ML SDV 2 mL 4 MG IVP (22:20)
--- NOTE | 2022-03-24 22:24 | ED_ITS ---
HPI - Weakness General: Chief complaint: Weakness Stated complaint: Cold chills, fever, diarrhea Time Seen by Provider: 03/24/22 21:20 Source: patient and family History of Present Illness: 56-year-old female with complaints of nausea, diarrhea, stomach cramping, body aches, and chills for the last 2 days. She has had very little oral intake. No documented fever. Mild cough, no sputum production. No known sick contacts. No chest pain. She has a history of atrial fibrillation, stroke, and peripheral vascular disease. MD Complaint: generalized weakness Onset (ago): day(s) (2) Duration: constant and progressively worsening Location: generalized Migration: none Severity: moderate Quality: other Relieving factors: none Exacerbating factors: exertion Associated symptoms: Reports chills, decreased appetite and nausea; Denies chest pain, confusion, melena, diaphoresis, dysuria, fever(s), headache(s), short of breath, syncope or vomiting Review of Systems Const: Reports: chills; Denies: fever(s) or diaphoresis Card: Denies: chest pain or syncope Resp: Reports: non-productive cough; Denies: dyspnea or productive cough GI: Reports: nausea; Denies: abdominal pain, vomiting, hematochezia or melena : Denies: dysuria Neuro: Denies: headache(s) or confusion PFS ED PFSH: Medical History Abdominal bloating Abdominal pain Bacterial UTI CAD (coronary artery disease) Cellulitis Cellulitis of right thumb Cerumen impaction Cerumen impaction Chest pain COPD (chronic obstructive pulmonary disease) CVA (cerebral vascular accident) Dental infection Environmental and seasonal allergies Essential hypertension Fever blister GERD (gastroesophageal reflux disease) Hematuria Insect bites Lower respiratory infection Medication management Microscopic hematuria Mixed hyperlipidemia Oral candidiasis Vitamin D deficiency Surgical History History of appendectomy History of carpal tunnel surgery History of tubal ligation S/P insertion of iliac artery stent 3 stents right leg Family History Grandfather CAD (coronary artery disease) Grandmother CAD (coronary artery disease) Father CAD (coronary artery disease) Myocardial infarction Age 50s Brother CAD (coronary artery disease) FH: CABG (coronary artery bypass surgery) Other Asthma Social History Smoking and tobacco status: current every day smoker Quit status (tobacco): not considering quitting Second hand smoke exposure: No Smoking risk assessment/counseling performed?: No Alcohol intake: never Desire information about alcohol rehabilitation?: No Counseling given: No Desire information about substance/drug rehabilitation?: No Counseling given: No Physical Exam Const: COMMON NORMALS: no acute distress GENERAL APPEARANCE: cooperative; not ill appearing and not frail appearing HENMT: COMMON NORMALS: normocephalic, atraumatic and Normal external nose present HEAD & SCALP: normocephalic and atraumatic FACE & SINUS: normal facial exam and face symmetric NOSE: Normal external nose present Eye: COMMON NORMALS: Equal, round and reactive pupils present and EOMs intact bilaterally PUPIL: Yes Equal, round and reactive pupils present Neck/C-Spine: GENERAL: Yes trachea midline Chest: CHEST: Yes Symmetrical chest wall rise Resp: COMMON NORMALS: normal respiratory effort, No retractions, No use of accessory muscles and clear to auscultation bilaterally AUSCULTATION: clear to auscultation bilaterally Cardio: COMMON NORMALS: regular rate and regular rhythm RATE: regular rate RHYTHM: regular rhythm GI: COMMON NORMALS: Normal to inspection, nondistended, normoactive bowel sounds present Extremity: COMMON NORMALS: no pedal edema Neuro: KRISTEN COMA SCALE: document GCS findings Kristen coma scale eye opening: Spontaneous [place] coma scale verbal response: Orientated [place] coma scale motor response: Obey commands [place] coma scale total score: 15 SENSORY EXAM: Yes extremities (intact) Psych: COMMON NORMALS: speech normal SPEECH: Yes normal speech Skin: COMMON NORMALS: no rashes or lesions noted GENERAL SKIN EXAM: no rashes or lesions noted Course Vital Signs: Vital signs: Vital Signs Temperature 97.9 F 03/24/22 21:09 Pulse Rate 89 03/24/22 21:09 Respiratory Rate 18 03/24/22 21:09 Blood Pressure 99/69 03/24/22 21:09 Pulse Oximetry 93 03/24/22 21:09 Oxygen Delivery Me thod 03/24/22 21:09 MDM - Weakness Medical Decision Making 56-year-old female with nausea and diarrhea and generalized weakness. She is feeling much better. She is on her way through her second liter. CBC is normal. Potassium is mildly low. Otherwise BMP is normal. Liver enzymes are not elevated. CRP is 3. Urinalysis is a contaminated sample but does not appear to be positive for UTI. Chest x-ray is negative. Rapid COVID swab is negative. Suspect enteritis in this patient. She will be allowed home with symptomatic treatment. Lab Data : 03/24/22 22:20 03/24/22 22:20 Radiology Impressions Chest X-Ray 03/24/22 22:03 IMPRESSION: No acute findings. Laboratory Results WBC 4.5 10^3/uL (4.0-10.0) 03/24/22 22:20 RBC 5.09 10^6/uL (4.1-5.3) 03/24/22 22:20 Hgb 14.9 g/dL (11.5-15.3) 03/24/22 22:20 Hct 45.3 % (37.0-47.0) 03/24/22 22:20 MCV 89.0 fl (81-99) 03/24/22 22:20 MCH 29.3 pg (28.0-34.0) 03/24/22 22:20 MCHC 32.9 g/dL (30.0-36.0) 03/24/22 22:20 RDW 13.0 % (12.1-15.1) 03/24/22 22:20 Plt Count 146 10^3/cmm (130-400) 03/24/22 22:20 MPV 10.7 fL (7.4-10.4) H 03/24/22 22:20 Neut % (Auto) 53.4 % 03/24/22 22:20 Lymph % (Auto) 35.8 % 03/24/22 22:20 [place] % (Auto) 10.4 % 03/24/22 22:20 Eos % (Auto) 0.0 % 03/24/22 22:20 Baso % (Auto) 0.2 % 03/24/22 22:20 Neut # (Auto) 2.41 10^3/uL (1.8-7.7) 03/24/22 22:20 Lymph # (Auto) 1.6 10^3/uL (0.8-4.8) 03/24/22 22:20 [place] # (Auto) 0.5 10^3/uL (0.2-0.9) 03/24/22 22:20 Eos # (Auto) 0.0 10^3/uL (0.0-0.8) 03/24/22 22:20 Baso # (Auto) 0.0 10^3/uL (0.0-0.1) 03/24/22 22:20 Nucleated RBC % (auto) 0 % 03/24/22 22:20 Nucleated RBCs # 0.0 /100WBC 03/24/22 22:20 Sodium 134 mmol/L (136-145) L 03/24/22 22:20 Potassium 3.4 mmol/L (3.5-5.1) L 03/24/22 22:20 Chloride 98 mmol/L (98-107) 03/24/22 22:20 Carbon Dioxide 24 mmol/L (22-29) 03/24/22 22:20 Anion Gap 15.4 (5-19) 03/24/22 22:20 BUN 18 mg/dL (6-20) 03/24/22 22:20 Creatinine 0.7 mg/dL (0.5-0.9) 03/24/22 22:20 GFR Calculation 87.2 mL/min (90-130) L 03/24/22 22:20 Glucose 81 mg/dL (65-115) 03/24/22 22:20 Calculated Osmolality 279 mOsm/kg (285-295) L 03/24/22 22:20 Lactate 0.8 mmol/L (0.5-2.2) 03/24/22 22:20 Calcium 9.2 mg/dL (8.5-10.5) 03/24/22 22:20 Total Bilirubin 0.3 mg/dL (0.15-1.2) 03/24/22 22:20 AST 22 U/L (0-32) 03/24/22 22:20 ALT 18 U/L (0-33) 03/24/22 22:20 Alkaline Phosphatase 76 U/L (35-105) 03/24/22 22:20 C-Reactive Protein 3.0 mg/L (0.0-4.9) 03/24/22 22:20 Total Protein 6.5 g/dL (6.6-8.7) L 03/24/22 22:20 Albumin 4.1 g/dL (3.5-5.2) 03/24/22 22:20 Globulin 2.4 g/dL (1.3-4.6) 03/24/22 22:20 Lipase 27 U/L (13-60) 03/24/22 22:20 Urine Color Yellow (Yellow) 03/24/22 22:20 Urine Appearance Cloudy (CLEAR) 03/24/22 22:20 Urine pH 5 (5-7) 03/24/22 22:20 Ur Specific [place] 1.025 (1.005-1.030) 03/24/22 22:20 Urine Protein Trace (Negative) 03/24/22 22:20 Urine Glucose (UA) Norm (Normal) 03/24/22 22:20 Urine Ketones 1+ (Negative) H 03/24/22 22:20 Urine Blood 3+ (Negative) H 03/24/22 22:20 Urine Nitrate Negative (Negative) 03/24/22 22:20 Urine Bilirubin 1+ (Negative) H 03/24/22 22:20 Urine Urobilinogen 1 mg/dL (Negative) H 03/24/22 22:20 Ur Leukocyte Esterase Trace (Negative) H 03/24/22 22:20 Urine RBC 5-10 /hpf (0-2) H 03/24/22 22:20 Urine WBC 5-10 /hpf (0-5) H 03/24/22 22:20 Ur Squamous Epith Cells 15-25 /hpf (0-5) H 03/24/22 22:20 Amorphous Sediment Not Reportable 03/24/22 22:20 Urine Bacteria 2+ /hpf (NONE) H 03/24/22 22:20 Urine Mucus 3+ /hpf 03/24/22 22:20 SARS-CoV-2 Ag (Rapid) Negative (Negative) 03/24/22 22:20 Discharge Plan Discharge Patient Disposition: Home Clinical Impression: Enteritis Condition: Stable Prescriptions: New ondansetron 4 mg film 4 mg PO DAILY PRN (Reason: nausea and vomiting) Qty: 10 0RF No Action metoprolol succinate 25 mg tablet extended release 24 hr 25 mg PO BID Qty: 180 1RF levofloxacin 750 mg tablet 750 mg PO Q24H 7 Days Qty: 7 0RF dexamethasone 6 mg tablet 6 mg PO DAILY 7 Days Qty: 7 0RF Mucinex 1,200 mg tablet extended release 12hr 1,200 mg PO BID PRN (Reason: cough) 30 Days Qty: 60 1RF budesonide-formoterol [Symbicort] 160-4.5 mcg/actuation HFA aerosol inhaler 2 inh inhalation BID Qty: 10.2 1RF divalproex [Depakote] 250 mg tablet,delayed release (DR/EC) See Rx Instructions .ROUTE .COMPLEX Rx Instructions: SEE PHARMACY COMMENTS ceftriaxone 1 gram recon soln 1 g IM ONCE Qty: 1 0RF sodium chloride 0.9 % Solution 1 ml IV ONCE Qty: 1 0RF albuterol sulfate 90 mcg/actuation HFA aerosol inhaler See Rx Instructions .ROUTE .COMPLEX Qty: 25.5 2RF Dose Instruction: INHALE 2 PUFFS BY MOUTH EVERY 6 HOURS NEEDED FOR SHORTNESS OF BREATH OR WHEEZING Rx Instructions: INHALE 2 PUFFS BY MOUTH EVERY 6 HOURS NEEDED FOR SHORTNESS OF BREATH OR WHEEZING atorvastatin 40 mg tablet See Rx Instructions .ROUTE .COMPLEX Qty: 90 1RF Dose Instruction: TAKE 1 TABLET BY MOUTH DAILY Rx Instructions: TAKE 1 TABLET BY MOUTH DAILY pantoprazole 40 mg tablet,delayed release (DR/EC) 40 mg PO DAILY 30 Days Qty: 30 5RF losartan 25 mg tablet See Rx Instructions .ROUTE .COMPLEX Qty: 90 0RF Dose Instruction: TAKE ONE TABLET BY MOUTH EVERY MORNING Rx Instructions: TAKE ONE TABLET BY MOUTH EVERY MORNING Aspir-81 81 mg Tablet,Delayed Release (Dr/Ec) 81 mg PO QAM nitroglycerin 0.3 mg tablet, sublingual 0.3 mg sublingual Q5M PRN (Reason: Chest Pain) Rx Instructions: do not exceed 3 doses per episode Dexilant 60 mg capsule,biphase delayed releas 60 mg PO DAILY Hold Instructions: Patient No Longer Taking Rx Instructions: Stop Protonix Xarelto 20 mg tablet 20 mg PO DAILY Qty: 30 0RF Rx Instructions: must administer with evening meal Discharge Orders: Discharge ED (Routine); Ordered 03/25/22 Ordered By: Heron Villanueva Referrals: ALBERTO Escalona, SALES ENABLEMENT SPECIALIST [Primary Care Provider] - 1-3 days Discharge Diet: Advance as tolerated and Clear Liquid Discharge Activity: Increase activity as tolerated Patient Instructions: Gastroenteritis (ED) Activity Restrictions/Additional Instructions: Watch closely for fever and treat appropriately. Hydrate orally for the next 48 hours. Return for inability to control temperature, vomiting liquids or medications despite treatment, blood in the stool, worsening diarrhea or abdominal pain, any other concerning symptoms. Coding Level of Care Code ED Weight Trainer for Briana Fwd Exam Comprehensive
[2022-03-24 22:31] LABS: Basophils % 0.2 %; Hematocrit 45.3 % (37.0-47.0); Hemoglobin 14.9 g/dL (11.5-15.3); Lymphocytes # 1.6 10^3/uL (0.8-4.8); Lymphocytes % 35.8 %; Mean Corpuscular HGB Conc 32.9 g/dL (30.0-36.0); Mean Corpuscular Hemoglobin 29.3 pg (28.0-34.0); Mean Platelet Volume 10.7 fL (7.4-10.4); Monocytes # 0.5 10^3/uL (0.2-0.9); Monocytes % 10.4 %; Neutrophils # 2.41 10^3/uL (1.8-7.7); Neutrophils % 53.4 %; Nucleated Red Blood Cells % 0 %; Platelet Count 146 10^3/cmm (130-400); Red Blood Count 5.09 10^6/uL (4.1-5.3); White Blood Count 4.5 10^3/uL (4.0-10.0)
[2022-03-24] MEDS: sodium chloride 0.9% 1,000 ML 999 ML IV ×2 (22:32→23:35)
[2022-03-24 22:50] LABS: Lactate (Lactic Acid level) 0.8 mmol/L (0.5-2.2)
[2022-03-24 22:51] LABS: Alanine Aminotransferase 18 U/L (0-33); Albumin Level 4.1 g/dL (3.5-5.2); Alkaline Phosphatase 76 U/L (35-105); Anion Gap 15.4 (5-19); Aspartate Amino Transferase 22 U/L (0-32); Blood Urea Nitrogen 18 mg/dL (6-20); Calcium 9.2 mg/dL (8.5-10.5); Carbon Dioxide 24 mmol/L (22-29); Chloride 98 mmol/L (98-107); Globulin 2.4 g/dL (1.3-4.6); Glomerular Filtration Rate 87.2 mL/min (90-130); Glucose 81 mg/dL (65-115); Lipase 27 U/L (13-60); Osmolality Calculated 279 mOsm/kg (285-295); Potassium 3.4 mmol/L (3.5-5.1); Sodium 134 mmol/L (136-145); Total Bilirubin 0.3 mg/dL (0.15-1.2); Total Protein 6.5 g/dL (6.6-8.7)
[2022-03-24 23:14] LABS: SARS Covid-2 Antigen Negative (Negative)
[2022-03-24 23:25] LABS: Specific Gravity, Urine 1.025 (1.005-1.030); Urine Appearance Cloudy (CLEAR); Urine Color Yellow (Yellow); pH Urine 5 (5-7)
[2022-03-24 23:26] LABS: Add Urine Microscopic? YES; Bilirubin Urine 1+ (Negative); Blood Urine 3+ (Negative); Glucose Urine UA Norm (Normal); Ketones Urine 1+ (Negative); Leukocyte Esterase Urine Trace (Negative); Nitrate Urine Negative (Negative); Protein Urine Trace (Negative); Urobilinogen Urine 1 mg/dL (Negative)
[2022-03-24 23:28] LABS: Add Urine Culture? No; Bacteria Urine 2+ /hpf; Mucus Urine 3+ /hpf; Squamous Epithelial Cell Urine 15-25 /hpf (0-5)
[2022-03-25] MEDS: potassium chloride ER 20 mEq Tablet 40 MEQ PO (00:57)
[2022-03-25] MEDS: loperamide 2 mg Capsule 4 MG PO (00:57)
[2022-03-25 01:32] VITALS: BP 108/69; PULSE 74; RESP 16; O2SAT 95
== END 2022-03-25 01:10 | disposition home or self-care (01) ==
PROVIDERS: Emergency Provider Emergency Medicine; PCP Nurse Practitioner Family
DX: K52.9 Noninfective gastroenteritis and colitis, unspecified (principal); Z79.82 Long term (current) use of aspirin; I25.10 Atherosclerotic heart disease of native coronary artery without angina pectoris; J44.9 Chronic obstructive pulmonary disease, unspecified; Z86.73 Personal history of transient ischemic attack (TIA), and cerebral infarction without residual deficits; I10 Essential (primary) hypertension; E78.2 Mixed hyperlipidemia; F17.210 Nicotine dependence, cigarettes, uncomplicated; Z20.822 Contact with and (suspected) exposure to COVID-19
CPT/HCPCS: 71045; 80053; 81001; 83605; 83690; 85025; 86140; 87426; 93005; 96361; 96374; 99285; J2405; J7030

== ENCOUNTER 2022-04-02 09:48 | Outpatient (CLI) | payer MEDICARE, MEDICAID, SELFPAY ==
--- NOTE | 2022-04-02 09:56 | MR_ITS ---
WS: [id number] MRI RIGHT ANKLE without CONTRAST. COMPARISON: None Multiplanar, multisequence imaging is performed without contrast. History: RIGHT lateral ankle pain. No trauma. There are several T1 low signal intensity in the lateral ankle closely associated with the talofibula r ligament. The largest measures 5 mm and is surrounded by fluid. The small loose bodies are closely associated with each other posterior and lateral to the talus. There is increased surrounding T2 sign al and fluid along the talofibular ligament. Osteochondral defect measuring 5 mm along the medial talar dome. These could potentially be the donor sites for the loose bodies in the posterior ankle joint. Plantar aponeurosis and the fascia are normal. Distal Achilles tendon is normal. No significant marro w edema. The peroneus tendons and the tendon sheath are normal. The flexor hallucis longus tendon is normal. P osterior tibialis tendon and the flexor digitorum longus tendon are all within normal limits as visua lized. There is a very small amount of increased fluid in the subtalar joint. MR/MR ankle RT wo con* [id number] IMPRESSION: 1. Loose bodies x3 closely associated with the posterior talofibular ligament with associated fluid and soft tissue edema. Loose bodies are all similar in si ze measuring about 5 mm. 2. Osteochondral defect in the medial talar dome may be the loose body donatio n site. 3. No fractures.
== END 2022-04-02 09:49 | disposition home or self-care (01) ==
PROVIDERS: PCP Registered Nurse; Visit Provider Registered Nurse
DX: M25.571 Pain in right ankle and joints of right foot (principal); M89.9 Disorder of bone, unspecified; M24.071 Loose body in right ankle; Q89.8 Other specified congenital malformations
CPT/HCPCS: 73721

== ENCOUNTER 2022-04-05 10:14 | Emergency (ER) | payer MEDICARE, MEDICAID, SELFPAY ==
[2022-04-05 10:17] VITALS: BP 144/79; PULSE 55; RESP 16; TEMP 36.2; O2SAT 98; BMI 22.6
--- NOTE | 2022-04-05 10:21 | ECG_ITS ---
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 Measurements Intervals [place] Rate: 51 P: 85 [place]: 152 QRS: 59 QRSD: 101 T: 78 QT: 452 QTc: 417 Interpretive Statements SINUS BRADYCARDIA Compared to ECG 03/24/2022 22:12:15 Sinus rhythm no longer present Electronically Signed On 04-05-2022 14:24:05 CDT by Fernando Peoples M.D. [id number] f
[2022-04-05 10:33] VITALS: BP 140/62; PULSE 56; RESP 16; O2SAT 97
--- NOTE | 2022-04-05 10:37 | XR_ITS ---
WS: [id number] Portable AP upright chest, 04/05/2022 Clinical Data: dyspnea/cough Comparison: Portable chest, 03/24/2022. Findings: No nodules, masses or effusions are seen. The heart is normal. The pulmonary vascularity is not increased. No pneumonia or pneumothorax is seen. There is a minimal dextroscoliosis of the thora cic spine. Monitor leads are on the chest wall. XR/XR chest 1V portable [id number] Impression: Negative chest.
--- NOTE | 2022-04-05 10:37 | ED_ITS ---
HPI - Chest Pain General: Chief Complaint: Chest Pain Stated Complaint: chest pain Time Seen by Provider: 04/05/22 10:22 Source: patient Mode of arrival: ambulatory Limitations: no limitations History of Present Illness: 56-year-old female presents emergency room complaining of lower chest epigastric pain radiating into the right shoulder. She states it began last night's been making her nauseous and short of breath. She denies any diarrhea she is notes she sits forward it makes the pain better she has no dysuria urgency or frequency denies any fever sweats or chills. She does have a history of atrial fibrillation and coronary artery disease she is on Xarelto for atrial fibrillation she has noticed that after wiping with bowel movements she will see small streaks of blood but none in the toilet. She is not any hematochezia melena hematemesis or coffee-ground emesis. She is not previously had episodes like this before. She has not noticed any acholic stools. She denies any previous abdominal surgeries. MD complaint: chest pain Onset (ago): minute(s) Timing of current episode: episodic Onset: during rest Pain location: right chest and epigastric Pain radiation: right shoulder Severity: severe Quality: aching Relieving factors: nothing Exacerbating factors: nothing Associated symptoms: Reports abdominal pain, dyspnea and nausea; Deny diaphoresis, fever(s), leg edema, palpitations, sense of impending doom, syncope or vomiting Treatment prior to arrival: none Review of Systems Const: Denies: fever(s) or diaphoresis ENMT: Denies: throat pain, ear or mastoid pain, nasal discharge or nasal congestion Card: Denies: palpitations or syncope Resp: Reports: dyspnea GI: Reports: abdominal pain and nausea; Denies: vomiting : Denies: flank pain, difficulty voiding, dysuria, urinary frequency or urinary urgency Skin/Breast: Denies: rash or pruritus PFSH ED PFSH: Medical History Abdominal bloating Abdominal pain Bacterial UTI CAD (coronary artery disease) Cellulitis Cellulitis of right thumb Cerumen impaction Cerumen impaction Chest pain COPD (chronic obstructive pulmonary disease) CVA (cerebral vascular accident) Dental infection Environmental and seasonal allergies Essential hypertension Fever blister GERD (gastroesophageal reflux disease) Hematuria Insect bites Lower respiratory infection Medication management Microscopic hematuria Mixed hyperlipidemia Oral candidiasis Vitamin D deficiency Surgical History History of appendectomy History of carpal tunnel surgery History of tubal ligation S/P insertion of iliac artery stent 3 stents right leg Family History Grandfather CAD (coronary artery disease) Grandmother CAD (coronary artery disease) Father CAD (coronary artery disease) Myocardial infarction Age 50s Brother CAD (coronary artery disease) FH: CABG (coronary artery bypass surgery) Other Asthma Social History Smoking and tobacco status: current every day smoker Quit status (tobacco): not considering quitting Second hand smoke exposure: No Smoking risk assessment/counseling performed?: No Alcohol intake: never Desire information about alcohol rehabilitation?: No Counseling given: No Desire information about substance/drug rehabilitation?: No Counseling given: No Physical Exam Const: COMMON NORMALS: no acute distress GENERAL APPEARANCE: cooperative and comfortable ORIENTATION/CONSCIOUSNESS: Yes awake, Yes oriented to person, Yes oriented to place and Yes oriented to time HENMT: COMMON NORMALS: normocephalic, atraumatic and hearing grossly normal bilaterally HEAD & SCALP: normocephalic and atraumatic Resp: COMMON NORMALS: normal respiratory effort, No retractions, No use of accessory muscles and clear to auscultation bilaterally AUSCULTATION: clear to auscultation bilaterally Cardio: COMMON NORMALS: regular rate, regular rhythm and No murmurs present (Cardio) RATE: regular rate RHYTHM: regular rhythm GI: COMMON NORMALS: Soft to palpation and No hepatosplenomegaly present AUSCULTATION: Yes normoactive bowel sounds PALPATION: Yes Soft to palpation, No Tenderness to palpation present (GI), No Guarding due to palpation present (GI) and Yes No hepatosplenomegaly present Extremity: COMMON NORMALS: normal to inspection, capillary refill normal, no clubbing, cyanosis or edema, no calf tenderness and no pedal edema Neuro: SENSORIUM/ORIENTATION: Yes oriented to person, Yes oriented to place and Yes oriented to time Skin: COMMON NORMALS: no rashes or lesions noted GENERAL SKIN EXAM: no rashes or lesions noted Course Vital Signs: Vital signs: Vital Signs Temperature 97.1 F L 04/05/22 10:17 Pulse Rate 90 04/05/22 14:20 Respiratory Rate 18 04/05/22 14:20 Blood Pressure 124/56 04/05/22 14:20 Pulse Oximetry 97 04/05/22 14:20 Oxygen Delivery Me thod 04/05/22 12:49 MDM - Chest Pain Medical Decision Making Serial enzymes and EKG unremarkable. Based on patient's symptoms suspect she has biliary dyskinesia refer to general surgery Medical Records I reviewed the patient's medical records. Lab Data I reviewed the patient's lab results. : 04/05/22 10:57 04/05/22 10:57 Radiology Impressions Chest X-Ray 04/05/22 10:37 Impression: Negative chest. Gallbladder Ultrasound 04/05/22 10:44 IMPRESSION: Normal RIGHT upper quadrant ultrasound. Abdomen/Pelvis CT 04/05/22 12:06 IMPRESSION: 1. No acute findings in the abdomen or pelvis. 2. Prior appendectomy and tubal ligation. 3. Normal caliber abdominal aorta. Dense aortic calcification. 4. No hydronephrosis in either kidney. Laboratory Results WBC 6.4 10^3/uL (4.0-10.0) 04/05/22 10:57 RBC 4.70 10^6/uL (4.1-5.3) 04/05/22 10:57 Hgb 13.6 g/dL (11.5-15.3) 04/05/22 10:57 Hct 42.8 % (37.0-47.0) 04/05/22 10:57 MCV 91.1 fl (81-99) 04/05/22 10:57 MCH 28.9 pg (28.0-34.0) 04/05/22 10:57 MCHC 31.8 g/dL (30.0-36.0) 04/05/22 10:57 RDW 12.9 % (12.1-15.1) 04/05/22 10:57 Plt Count 289 10^3/cmm (130-400) 04/05/22 10:57 MPV 11.1 fL (7.4-10.4) H 04/05/22 10:57 Neut % (Auto) 52.0 % 04/05/22 10:57 Lymph % (Auto) 39.7 % 04/05/22 10:57 [place] % (Auto) 6.7 % 04/05/22 10:57 Eos % (Auto) 0.8 % 04/05/22 10:57 Baso % (Auto) 0.5 % 04/05/22 10:57 Neut # (Auto) 3.32 10^3/uL (1.8-7.7) 04/05/22 10:57 Lymph # (Auto) 2.5 10^3/uL (0.8-4.8) 04/05/22 10:57 [place] # (Auto) 0.4 10^3/uL (0.2-0.9) 04/05/22 10:57 Eos # (Auto) 0.1 10^3/uL (0.0-0.8) 04/05/22 10:57 Baso # (Auto) 0.0 10^3/uL (0.0-0.1) 04/05/22 10:57 Nucleated RBC % (auto) 0 % 04/05/22 10:57 Nucleated RBCs # 0.0 /100WBC 04/05/22 10:57 Sodium 139 mmol/L (136-145) 04/05/22 10:57 Potassium 3.4 mmol/L (3.5-5.1) L 04/05/22 10:57 Chloride 104 mmol/L (98-107) 04/05/22 10:57 Carbon Dioxide 21 mmol/L (22-29) L 04/05/22 10:57 Anion Gap 17.4 (5-19) 04/05/22 10:57 BUN 7 mg/dL (6-20) 04/05/22 10:57 Creatinine 0.6 mg/dL (0.5-0.9) 04/05/22 10:57 GFR Calculation 104.2 mL/min (90-130) 04/05/22 10:57 Glucose 89 mg/dL (65-115) 04/05/22 10:57 Calculated Osmolality 285 mOsm/kg (285-295) 04/05/22 10:57 Calcium 9.2 mg/dL (8.5-10.5) 04/05/22 10:57 Total Bilirubin 0.4 mg/dL (0.15-1.2) 04/05/22 10:57 AST 13 U/L (0-32) 04/05/22 10:57 ALT 17 U/L (0-33) 04/05/22 10:57 Alkaline Phosphatase 76 U/L (35-105) 04/05/22 10:57 Troponin T Baseline 6 ng/L (0-10) 04/05/22 10:57 Troponin T 120 Minute 6.00 ng/L (0-10) 04/05/22 12:57 Delta Troponin T 0 ABS# (0-10) 04/05/22 12:57 Total Protein 6.2 g/dL (6.6-8.7) L 04/05/22 10:57 Albumin 3.7 g/dL (3.5-5.2) 04/05/22 10:57 Globulin 2.5 g/dL (1.3-4.6) 04/05/22 10:57 Lipase 38 U/L (13-60) 04/05/22 10:57 Urine Color Yellow (Yellow) 04/05/22 13:30 Urine Appearance Clear (CLEAR) 04/05/22 13:30 Urine pH 6 (5-7) 04/05/22 13:30 Ur Specific [place] 1.010 (1.005-1.030) 04/05/22 13:30 Urine Protein Neg (Negative) 04/05/22 13:30 Urine Glucose (UA) Norm (Normal) 04/05/22 13:30 Urine Ketones Negative (Negative) 04/05/22 13:30 Urine Blood 2+ (Negative) H 04/05/22 13:30 Urine Nitrate Negative (Negative) 04/05/22 13:30 Urine Bilirubin Neg (Negative) 04/05/22 13:30 Urine Urobilinogen Norm mg/dL (Negative) 04/05/22 13:30 Ur Leukocyte Esterase Negative (Negative) 04/05/22 13:30 Urine RBC 5-10 /hpf (0-2) H 04/05/22 13:30 Urine WBC 0-4 /hpf (0-5) H 04/05/22 13:30 Ur Squamous Epith Cells 5-10 /hpf (0-5) H 04/05/22 13:30 Amorphous Sediment Not Reportable 04/05/22 13:30 Urine Bacteria 1+ /hpf (NONE) H 04/05/22 13:30 Discharge Plan Discharge Patient Disposition: Home Clinical Impression: Biliary dyskinesia, Biliary colic Condition: Stable Prescriptions: Changed pantoprazole 40 mg tablet,delayed release (DR/EC) 40 mg PO BID 30 Days Qty: 30 5RF No Action metoprolol succinate 25 mg tablet extended release 24 hr 25 mg PO BID Qty: 180 1RF divalproex [Depakote] 250 mg tablet,delayed release (DR/EC) 250 mg PO TID Xarelto 20 mg tablet 20 mg PO DAILY Qty: 30 0RF Rx Instructions: must administer with evening meal epinephrine 0.15 mg/0.3 mL Auto-Injector 0.15 mg IM DAILY PRN (Reason: Allergic Reaction) Rx Instructions: do not exceed 12 doses per 24 hrs nitroglycerin 0.4 mg Tablet, Sublingual 0.4 mg SUBLINGUAL Q5M PRN (Reason: Chest Pain) Rx Instructions: do not exceed 3 doses per episode atorvastatin 40 mg tablet 40 mg PO BEDTIME losartan 25 mg tablet 25 mg PO DAILY albuterol sulfate 90 mcg/actuation HFA aerosol inhaler 2 puff inhalation Q6H PRN (Reason: Shortness Of Breath Or Wheezing) Discharge Orders: Discharge ED (Routine); Ordered 04/05/22 Ordered By: Valente Medrano Referrals: Vandana Malcolm [Primary Care Provider] - Discharge Diet: Usual diet Discharge Activity: Resume usual activity Patient Instructions: Abdominal Pain (ED), Opioid Safety Activity Restrictions/Additional Instructions: storage center manager will make arrangements for her to have a HIDA scan in the third with general surgery. Coding Level of Care Code ED Marking Machine Tender for Chg Fwd Exam Detailed
--- NOTE | 2022-04-05 10:44 | US_ITS ---
WS: [id number] RIGHT UPPER QUADRANT ULTRASOUND HISTORY: RUQ, abd pain COMPARISON: None available. Liver: 15.7 cm in length. Normal size liver. No bile duct dilatation or mass. Portal Vein: Normal hepatopetal flow with monophasic waveform. Gallbladder: Normally distended gallbladder with no stones or wall thickening. CBD: 0.3 cm Pancreas: Normal size and echogenicity. Right kidney: 9.1 cm in length. Minimal splitting of the RIGHT renal pelvis. There is a small amount of fluid but not hydropic with this time. No mass. Aorta and IVC: Unremarkable abdominal aorta and IVC. No ascites. US/US gall bladder [id number] IMPRESSION: Normal RIGHT upper quadrant ultrasound.
[2022-04-05] MEDS: aspirin 81 mg Chew Tablet 324 MG PO (10:51)
[2022-04-05 11:24] LABS: Troponin(5th) Baseline 6 ng/L (0-10)
--- NOTE | 2022-04-05 12:06 | CT_ITS ---
WS: [id number] CT ABDOMEN PELVIS TECHNIQUE: Noncontrast CT of the abdomen and pelvis with coronal and sagittal reformatted images. CLINICAL INFORMATION: Abdominal pain COMPARISON: CT 8 3,018 DLP: 329.[address] scans at [facility] use at least one of these dose optimization techniques: automated e xposure control; mA and/or kV adjustment per patient size (includes targeted exams where dose is matc hed to clinical indication); or iterative reconstruction. FINDINGS: Prior tubal ligation. Prior appendectomy. Lung bases are well aerated. Noncontrast liver is normal. N ormal GE junction. Noncontrast spleen is normal. Normal noncontrast pancreas. Adrenal glands are norm al. Normal caliber abdominal aorta. Vascular calcification. No hydronephrosis in either kidney. No obstructing renal or ureteral calculi. Pelvic phleboliths. Nor mal sigmoid colon. No high-grade small or large bowel obstruction. No free fluid in the pelvis. CT/CT abdomen pelvis wo con [id number] IMPRESSION: 1. No acute findings in the abdomen or pelvis. 2. Prior appendectomy and tubal ligation. 3. Normal caliber abdominal aorta. Dense aortic calcification. 4. No hydronephrosis in either kidney.
--- NOTE | 2022-04-05 12:36 | ECG_ITS ---
[facility] Test Date: 2022-04-05 Pat Name: Nicky Rhodes Department: Room: Gender: Female Rf Test Technician: : 1965 Requested By: Valente Martinez Order Number: [id number] Leslee MD: Fernando Peoples M.D. Measurements Intervals [place] Rate: 51 P: 42 ME: 145 QRS: 66 QRSD: 90 T: 78 QT: 455 QTc: 421 Interpretive Statements SINUS BRADYCARDIA WITH SINUS ARRHYTHMIA Compared to ECG 04/05/2022 10:21:44 No significant changes Electronically Signed On 04-05-2022 14:38:10 CDT by Fernando Peoples M.D. [id number]
[2022-04-05 12:49] VITALS: BP 123/66; PULSE 88; RESP 16; O2SAT 98
[2022-04-05 13:31] VITALS: BP 126/61; PULSE 50; RESP 16; O2SAT 97
[2022-04-05 13:33] LABS: Basophils % 0.5 %; Eosinophils # 0.1 10^3/uL (0.0-0.8); Eosinophils % 0.8 %; Hematocrit 42.8 % (37.0-47.0); Hemoglobin 13.6 g/dL (11.5-15.3); Lymphocytes # 2.5 10^3/uL (0.8-4.8); Lymphocytes % 39.7 %; Mean Corpuscular HGB Conc 31.8 g/dL (30.0-36.0); Mean Corpuscular Hemoglobin 28.9 pg (28.0-34.0); Mean Corpuscular Volume 91.1 fl (81-99); Mean Platelet Volume 11.1 fL (7.4-10.4); Monocytes # 0.4 10^3/uL (0.2-0.9); Monocytes % 6.7 %; Neutrophils # 3.32 10^3/uL (1.8-7.7); Nucleated Red Blood Cells % 0 %; Platelet Count 289 10^3/cmm (130-400); Red Cell Distribution Width 12.9 % (12.1-15.1); White Blood Count 6.4 10^3/uL (4.0-10.0)
[2022-04-05 13:48] LABS: Add Urine Microscopic? YES; Bilirubin Urine Neg (Negative); Blood Urine 2+ (Negative); Glucose Urine UA Norm (Normal); Ketones Urine Negative (Negative); Leukocyte Esterase Urine Negative (Negative); Nitrate Urine Negative (Negative); Protein Urine Neg (Negative); Urine Appearance Clear (CLEAR); Urine Color Yellow (Yellow); Urobilinogen Urine Norm (Negative); pH Urine 6 (5-7)
[2022-04-05 13:48] LABS: Alanine Aminotransferase 17 U/L (0-33); Albumin Level 3.7 g/dL (3.5-5.2); Alkaline Phosphatase 76 U/L (35-105); Anion Gap 17.4 (5-19); Aspartate Amino Transferase 13 U/L (0-32); Blood Urea Nitrogen 7 mg/dL (6-20); Calcium 9.2 mg/dL (8.5-10.5); Carbon Dioxide 21 mmol/L (22-29); Chloride 104 mmol/L (98-107); Globulin 2.5 g/dL (1.3-4.6); Glomerular Filtration Rate 104.2 mL/min (90-130); Glucose 89 mg/dL (65-115); Lipase 38 U/L (13-60); Osmolality Calculated 285 mOsm/kg (285-295); Potassium 3.4 mmol/L (3.5-5.1); Sodium 139 mmol/L (136-145); Total Bilirubin 0.4 mg/dL (0.15-1.2); Total Protein 6.2 g/dL (6.6-8.7)
[2022-04-05 13:49] LABS: Add Urine Culture? No; Bacteria Urine 1+ /hpf; WBC Urine 0-4 /hpf (0-5)
[2022-04-05 14:06] LABS: Troponin 5 2HR Delta 0 ABS# (0-10)
[2022-04-05 14:20] VITALS: BP 124/56; PULSE 90; RESP 18; O2SAT 97
--- NOTE | 2022-04-23 11:47 | DCPLANNER ---
Addendum entered by Radha Nam 08/06/22 13:38: Patient had a HIDA scan scheduled - patient did not attend appointment Patient had a follow up appointment scheduled with general surgery - patient did not attend appointment. Addendum entered by Radha Nam 04/23/22 14:47: Patient has a follow up appointment scheduled for Tuesday June 07, 2022 at 9:[address] Corrales at general surgery. Clinic will call patient with appointment information. Addendum entered by Radha Nam 04/23/22 11:50: barn and property manager also had a message to schedule a follow up appointment for patient with general surgery. barn and property manager sent patients information to the front office at general surgery. Patients information will be printed and reviewed. Clinic will call patient with appointment information. Original Note: barn and property manager had message to schedule an outpatient HIDA Scan for patient. barn and property manager faxed signed order to centralized scheduling, who will call patient with appointment information. barn and property manager spoke with patient to confirm that she wanted the test, and to confirm who patients primary care physician was, Vandana Malcolm at [facility]. barn and property manager also faxed the information that the test was ordered from the ER to patients primary care physician.
== END 2022-04-05 14:21 | disposition home or self-care (01) ==
PROVIDERS: Emergency Provider Family Medicine; PCP Registered Nurse
DX: K82.8 Other specified diseases of gallbladder (principal); F17.210 Nicotine dependence, cigarettes, uncomplicated; I25.10 Atherosclerotic heart disease of native coronary artery without angina pectoris; J44.9 Chronic obstructive pulmonary disease, unspecified; Z86.73 Personal history of transient ischemic attack (TIA), and cerebral infarction without residual deficits; I10 Essential (primary) hypertension; E78.5 Hyperlipidemia, unspecified
CPT/HCPCS: 71045; 74176; 76705; 80053; 81001; 83690; 84484; 85025; 93005; 99285

== ENCOUNTER 2022-08-04 09:52 | Emergency (ER) | payer MEDICARE, MEDICAID, SELFPAY ==
[2022-08-04 10:08] VITALS: BP 122/83; PULSE 91; RESP 14; TEMP 36.9; O2SAT 98
--- NOTE | 2022-08-04 10:41 | W.ED.GENADLT ---
HPI - General Adult General: Chief complaint: General Medical Stated complaint: right side cheek is swollen Time Seen by Provider: 08/04/22 10:18 History of Present Illness: Patient is a 56-year-old female comes to the ED with dental pain. She has been having this dental pain now for the past 4 months and has been trying to get an appointment set up with her dentist to have her bottom teeth removed. She states that last week she was supposed see the dentist and have all her bottom teeth removed, but there was a problem with the paperwork so they had to reschedule the appointment. She is having dental pain right lower jaw along with some right lower mandible swelling. Denies any trouble breathing or any airway obstruction. Associated symptoms: Deny chest pain, dyspnea, headache(s), nausea, rash, palpitations or vomiting Review of Systems Const: Denies: fever(s), chills or fatigue Eyes: Denies: change in vision or eye discomfort ENMT: Reports: dental pain; Denies: throat pain, odynophagia, nasal discharge or nasal congestion Card: Denies: chest pain, palpitations, edema, swelling of feet/ankles, dyspnea on exertion or orthopnea Resp: Denies: dyspnea, productive cough or non-productive cough GI: Denies: abdominal pain, nausea, vomiting, diarrhea, constipation or hematochezia : Denies: flank pain, dysuria or hematuria Musc: Denies: neck pain, back pain or extremity swelling Skin/Breast: Denies: rash or new lesions Neuro: Denies: headache(s), numbness in extremities or weakness in extremities PFS ED PFSH: Medical History Abdominal bloating Abdominal pain Bacterial UTI CAD (coronary artery disease) Cellulitis Cellulitis of right thumb Cerumen impaction Cerumen impaction Chest pain COPD (chronic obstructive pulmonary disease) CVA (cerebral vascular accident) Dental infection Environmental and seasonal allergies Essential hypertension Fever blister GERD (gastroesophageal reflux disease) Hematuria Insect bites Lower respiratory infection Medication management Microscopic hematuria Mixed hyperlipidemia Oral candidiasis Vitamin D deficiency Surgical History History of appendectomy History of carpal tunnel surgery History of tubal ligation S/P insertion of iliac artery stent 3 stents right leg Family History Grandfather CAD (coronary artery disease) Grandmother CAD (coronary artery disease) Father CAD (coronary artery disease) Myocardial infarction Age 50s Brother CAD (coronary artery disease) FH: CABG (coronary artery bypass surgery) Other Asthma Social History Smoking and tobacco status: current every day smoker Quit status (tobacco): not considering quitting Second hand smoke exposure: No Smoking risk assessment/counseling performed?: No Alcohol intake: never Desire information about alcohol rehabilitation?: No Counseling given: No Desire information about substance/drug rehabilitation?: No Counseling given: No Physical Exam Const: COMMON NORMALS: patient oriented x3 HENMT: COMMON NORMALS: normocephalic HEAD & SCALP: normocephalic FACE & SINUS: edema on the right mandible and Facial tenderness on exam of face and sinuses on the right mandible MOUTH: Normal oral and palatal mucosa present TEETH & GINGIVA: Yes caries, Yes gingiva abnormal edematous and tender and Yes poor dentition THROAT: posterior oropharynx normal and uvula midline Neck/C-Spine: COMMON NORMALS: supple GENERAL: Yes normal visual inspection Resp: COMMON NORMALS: normal respiratory effort, No retractions, No use of accessory muscles and clear to auscultation bilaterally AUSCULTATION: clear to auscultation bilaterally Cardio: COMMON NORMALS: regular rate, regular rhythm, S1 normal heart sound present, S2 normal heart sound present, No gallops present (Cardio), No clicks present (Cardio), No murmurs present (Cardio) and Peripheral pulses 2+ throughout RATE: regular rate RHYTHM: regular rhythm HEART SOUNDS: S1 normal heart sound present and S2 normal heart sound present PERIPHERAL PULSES: Peripheral pulses 2+ throughout GI: COMMON NORMALS: Normal to inspection, nondistended, normoactive bowel sounds present, Soft to palpation, non-tender and no masses PALPATION: Yes Soft to palpation : COMMON NORMALS: Yes no CVA tenderness BLADDER/KIDNEY EXAM: Yes no CVA tenderness Back/Pelvis: COMMON NORMALS: no CVA tenderness Extremity: COMMON NORMALS: normal to inspection Neuro: COMMON NORMALS: patient oriented x3 GAIT: Yes Normal gait present Skin: GENERAL SKIN EXAM: dry skin Course Vital Signs: Vital signs: Vital Signs Temperature 98.4 F 08/04/22 10:08 Pulse Rate 91 08/04/22 10:08 Respiratory Rate 14 08/04/22 10:08 Blood Pressure 122/83 08/04/22 10:08 Pulse Oximetry 98 08/04/22 10:08 Oxygen Delivery Me thod 08/04/22 10:08 MDM - General Adult Medical Decision Making Patient is a 56-year-old female comes to the ED with dental pain. She has been having this dental pain now for the past 4 months and has been trying to get an appointment set up with her dentist to have her bottom teeth removed. She states that last week she was supposed see the dentist and have all her bottom teeth removed, but there was a problem with the paperwork so they had to reschedule the appointment. She is having dental pain right lower jaw along with some right lower mandible swelling. Denies any trouble breathing or any airway obstruction. Vital stable. Patient has some right mandible swelling and tenderness and has poor dentition and multiple dental caries on tooth and lower jaw. Patient is currently on antibiotic and does not want anything for pain. I offered patient a dose of steroids to help with some of the swelling but patient did not want any. She was stable for discharge home and diagnosed with a dental infection and told to continue taking her previously prescribed antibiotic and to contact her dentist tomorrow morning to get an appointment rescheduled. Return to ED precautions given. Patient understood and agreed with plan. Discharge Plan Discharge Patient Disposition: Home Clinical Impression: Dental infection Condition: Stable Prescriptions: No Action metoprolol succinate 25 mg tablet extended release 24 hr 25 mg PO BID Qty: 180 1RF divalproex [Depakote] 250 mg tablet,delayed release (DR/EC) 250 mg PO TID Xarelto 20 mg tablet 20 mg PO DAILY Qty: 30 0RF Rx Instructions: must administer with evening meal epinephrine 0.15 mg/0.3 mL Auto-Injector 0.15 mg IM DAILY PRN (Reason: Allergic Reaction) Rx Instructions: do not exceed 12 doses per 24 hrs nitroglycerin 0.4 mg Tablet, Sublingual 0.4 mg SUBLINGUAL Q5M PRN (Reason: Chest Pain) Rx Instructions: do not exceed 3 doses per episode atorvastatin 40 mg tablet 40 mg PO BEDTIME losartan 25 mg tablet 25 mg PO DAILY albuterol sulfate 90 mcg/actuation HFA aerosol inhaler 2 puff inhalation Q6H PRN (Reason: Shortness Of Breath Or Wheezing) pantoprazole 40 mg tablet,delayed release (DR/EC) 40 mg PO BID 30 Days Qty: 30 5RF Discharge Orders: Discharge ED (Routine); Ordered 08/04/22 Ordered By: Eulalio Jeong Referrals: Vandana Malcolm [Primary Care Provider] - Discharge Diet: Regular Discharge Activity: Increase activity as tolerated Patient Instructions: Dental Abscess (ED) Activity Restrictions/Additional Instructions: Call your dentist office tomorrow morning to get set up with an appointment to have dental pain treated. Continue taking your previously prescribed antibiotic. Return to the ER or your medical provider if condition worsens. Please read and understand discharge instructions. Thank you for choosing [facility] for your healthcare needs today. Please realize this is an emergency room and that we are providing you with a medical screening exam and this may not be complete and all inclusive of all the testing and or work up that you may need to determine your ailment or severity of your illness. It is very important that you follow up as instructed or that you return to the Emergency Department should you have concerns or if your condition changes or worsens in any way. Coding Level of Care Code ED Channel Marketing Coordinator for Briana Chan Exam Comprehensive
== END 2022-08-04 10:51 | disposition home or self-care (01) ==
PROVIDERS: Emergency Provider Physician Assistant; PCP Registered Nurse
DX: K04.7 Periapical abscess without sinus (principal); I25.10 Atherosclerotic heart disease of native coronary artery without angina pectoris; J44.9 Chronic obstructive pulmonary disease, unspecified; Z86.73 Personal history of transient ischemic attack (TIA), and cerebral infarction without residual deficits; I10 Essential (primary) hypertension; E78.2 Mixed hyperlipidemia; F17.210 Nicotine dependence, cigarettes, uncomplicated
CPT/HCPCS: 99282

== ENCOUNTER 2023-02-16 13:39 | Emergency (ER) | payer MEDICARE, MEDICAID, SELFPAY ==
[2023-02-16 13:50] VITALS: BP 113/74; PULSE 73; RESP 14; TEMP 36.3; O2SAT 97; BMI 19.5
--- NOTE | 2023-02-16 14:13 | W.ED.ALLEREA ---
Documented by User: Yanni Cunningham PA-C 02/16/23 14:19 HPI - Allergic Reaction General: Chief complaint: Allergic Reaction Stated complaint: allg react Time Seen by Provider: 02/16/23 14:00 Source: patient Mode of arrival: ambulatory Limitations: no limitations History of Present Illness: HPI narrative: 57-year-old female with a history of alpha gal syndrome presents to the ER for possible allergic reaction. Patient reports this started after she ate chicken nuggets from [employer] last night. Patient reports within few hours she started noticing that her tongue felt funny. She describes this more as a soreness. She reports no difficulty breathing. Patient reports it was getting better and then this morning seemed worse again. Patient reports it feels like the sides of her tongue are blistered. She also noticed bumps on the back of her tongue. She is got an EpiPen and has it available if needed. Patient reports she has had 2 episodes of anaphylaxis associated with alpha gal in the last 1 year. Both of these reactions were within 3 hours of eating. Patient reports she has an appointment Friday with an alpha-gal specialist. Patient has not taken any Benadryl at this time. Review of Systems General: Reports: 10 or more systems reviewed and unremarkable except in HPI and below PFSH ED PFSH: Medical History Abdominal bloating Abdominal pain Bacterial UTI CAD (coronary artery disease) Cellulitis Cellulitis of right thumb Cerumen impaction Cerumen impaction Chest pain COPD (chronic obstructive pulmonary disease) CVA (cerebral vascular accident) Dental infection Environmental and seasonal allergies Essential hypertension Fever blister GERD (gastroesophageal reflux disease) Hematuria Insect bites Lower respiratory infection Medication management Microscopic hematuria Mixed hyperlipidemia Oral candidiasis Vitamin D deficiency Surgical History History of appendectomy History of carpal tunnel surgery History of tubal ligation S/P insertion of iliac artery stent 3 stents right leg Family History Grandfather CAD (coronary artery disease) Grandmother CAD (coronary artery disease) Father CAD (coronary artery disease) Myocardial infarction Age 50s Brother CAD (coronary artery disease) FH: CABG (coronary artery bypass surgery) Other Asthma Social History Smoking and tobacco status: current every day smoker Quit status (tobacco): not considering quitting Second hand smoke exposure: No Smoking risk assessment/counseling performed?: No Alcohol intake: never Desire information about alcohol rehabilitation?: No Counseling given: No Substance/Drug Use: never Desire information about substance/drug rehabilitation?: No Counseling given: No Physical Exam Const: COMMON NORMALS: no acute distress, average body habitus, patient oriented x3, no limitations, healthy appearing, alert and well nourished HENMT: COMMON NORMALS: normocephalic, atraumatic, external ears normal and Normal nasal mucous membranes and turbinates present HEAD & SCALP: normocephalic and atraumatic NOSE: Normal nasal mucous membranes and turbinates present EXTERNAL EAR: Yes external ears normal OTHER: Patient is noted to have some dry lips and dry mouth. Taste buds are slightly enlarged but otherwise tongue is normal-appearing. No swelling and no blisters noted. Throat is patent with no swelling. Neck/C-Spine: COMMON NORMALS: full ROM, no lymphadenopathy and supple Resp: COMMON NORMALS: normal respiratory effort and No retractions AUSCULTATION: wheezes (Bilaterally) scattered wheezes Cardio: COMMON NORMALS: regular rate, regular rhythm and No murmurs present (Cardio) RATE: regular rate RHYTHM: regular rhythm GI: COMMON NORMALS: Normal to inspection, nondistended, normoactive bowel sounds present, Soft to palpation and non-tender PALPATION: Yes Soft to palpation Extremity: COMMON NORMALS: normal to inspection, full ROM and no pedal edema Neuro: COMMON NORMALS: patient oriented x3 SENSORIUM/ORIENTATION: Yes alert Psych: COMMON NORMALS: mental status grossly normal, Normal thought process present and cooperative THOUGHT PROCESS: Normal thought process present Skin: COMMON NORMALS: no rashes or lesions noted and no wounds GENERAL SKIN EXAM: no rashes or lesions noted Course ED course: Patient presents to the ER for possible allergic reaction secondary to alpha gal syndrome. Patient ate chicken nuggets last night. Patient is in no acute distress in the ER. Her vitals are completely stable. Oxygen is normal. Physical exam is unremarkable. Throat is patent with no obvious swelling. There are no abnormalities noted of the tongue other than slightly dry mouth with inflamed taste buds but no swelling. No blisters. Discussed with patient that likely we are outside the window of any type of anaphylactic reaction. She does have an EpiPen available. We will go ahead and give a Kenalog shot in the ER today. Patient is driving her self home so she cannot have Benadryl here. Vital Signs: Vital signs: Vital Signs Temperature 97.4 F L 02/16/23 13:50 Pulse Rate 70 02/16/23 14:26 Respiratory Rate 14 02/16/23 13:50 Blood Pressure 138/81 02/16/23 14:26 Pulse Oximetry 94 02/16/23 14:26 Oxygen Delivery Me thod Room Air 02/16/23 13:50 MDM - Allergic Reaction Medical Decision Making Patient is stable both on physical exam and vitals. Patient has a follow-up with an alpha-gal specialist on Friday. Likely patient is outside the window of any type of anaphylactic reaction caused by chicken nuggets last night. Patient given a steroid injection in ER today. Patient also told she should picker and sorter load and unload Benadryl tablets and take those as needed. She does have epi available if needed. Recommended pushing fluids and also sour candy as patient appears to have a pretty dry mouth. I suspect the dry mouth is with causing her tongue to feel funny. For any new or worsening symptoms she should return to the ER. Patient verbalized understanding and was in agreement with the treatment plan. Critical Care Time Critical Care Time: Critical Care Time: No Discharge Plan Discharge Patient Disposition: Home Clinical Impression: Allergic reaction to alpha-gal Condition: Stable Prescriptions: No Action metoprolol succinate 25 mg tablet extended release 24 hr 25 mg PO BID Qty: 180 1RF divalproex [Depakote] 250 mg tablet,delayed release (DR/EC) 250 mg PO TID Xarelto 20 mg tablet 20 mg PO DAILY Qty: 30 0RF Rx Instructions: must administer with evening meal epinephrine 0.15 mg/0.3 mL Auto-Injector 0.15 mg IM DAILY PRN (Reason: Allergic Reaction) Rx Instructions: do not exceed 12 doses per 24 hrs nitroglycerin 0.4 mg Tablet, Sublingual 0.4 mg SUBLINGUAL Q5M PRN (Reason: Chest Pain) Rx Instructions: do not exceed 3 doses per episode atorvastatin 40 mg tablet 40 mg PO BEDTIME losartan 25 mg tablet 25 mg PO DAILY albuterol sulfate 90 mcg/actuation HFA aerosol inhaler 2 puff inhalation Q6H PRN (Reason: Shortness Of Breath Or Wheezing) pantoprazole 40 mg tablet,delayed release (DR/EC) 40 mg PO BID 30 Days Qty: 30 5RF Discharge Orders: Discharge ED (Routine); Ordered 02/16/23 Ordered By: Yanni Cunningham Referrals: Vandana Malcolm [Primary Care Provider] - Discharge Diet: Usual diet Discharge Activity: Resume usual activity Patient Instructions: Opioid Safety, Pain Management Activity Restrictions/Additional Instructions: Take Benadryl tablets as discussed. Keep epinephrine pen available if needed. Follow-up with PCP in 2 to 3 days if no improvement. Recommend pushing fluids as patient appears to have some dry mouth. Also recommended sour candy to help with the dry mouth. Coding Level of Care Code ED Splitting Machine Feeder for Chg Fwd Documented by User: Valente Medrano DO 02/17/23 05:52 HPI - Allergic Reaction General: Chief complaint: Allergic Reaction Stated complaint: allg react Time Seen by Provider: 02/16/23 14:00 [facility] ED PFSH: Medical History Abdominal bloating Abdominal pain Bacterial UTI CAD (coronary artery disease) Cellulitis Cellulitis of right thumb Cerumen impaction Cerumen impaction Chest pain COPD (chronic obstructive pulmonary disease) CVA (cerebral vascular accident) Dental infection Environmental and seasonal allergies Essential hypertension Fever blister GERD (gastroesophageal reflux disease) Hematuria Insect bites Lower respiratory infection Medication management Microscopic hematuria Mixed hyperlipidemia Oral candidiasis Vitamin D deficiency Surgical History History of appendectomy History of carpal tunnel surgery History of tubal ligation S/P insertion of iliac artery stent 3 stents right leg Family History Grandfather CAD (coronary artery disease) Grandmother CAD (coronary artery disease) Father CAD (coronary artery disease) Myocardial infarction Age 50s Brother CAD (coronary artery disease) FH: CABG (coronary artery bypass surgery) Other Asthma Social History Smoking and tobacco status: current every day smoker Quit status (tobacco): not considering quitting Second hand smoke exposure: No Smoking risk assessment/counseling performed?: No Alcohol intake: never Desire information about alcohol rehabilitation?: No Counseling given: No Substance/Drug Use: never Desire information about substance/drug rehabilitation?: No Counseling given: No Course Vital Signs: Vital signs: Vital Signs Temperature 97.4 F L 02/16/23 13:50 Pulse Rate 70 02/16/23 14:26 Respiratory Rate 14 02/16/23 13:50 Blood Pressure 138/81 02/16/23 14:26 Pulse Oximetry 94 02/16/23 14:26 Oxygen Delivery Me thod Room Air 02/16/23 13:50 MDM - Allergic Reaction Medical Decision Making Patient is stable both on physical exam and vitals. Patient has a follow-up with an alpha-gal specialist on Friday. Likely patient is outside the window of any type of anaphylactic reaction caused by chicken nuggets last night. Patient given a steroid injection in ER today. Patient also told she should picker and sorter load and unload Benadryl tablets and take those as needed. She does have epi available if needed. Recommended pushing fluids and also sour candy as patient appears to have a pretty dry mouth. I suspect the dry mouth is with causing her tongue to feel funny. For any new or worsening symptoms she should return to the ER. Patient verbalized understanding and was in agreement with the treatment plan. Chart reviewed and patient discussed with midlevel. Agree with assessment and plan. Discharge Plan Discharge Patient Disposition: Home Clinical Impression: Allergic reaction to alpha-gal Condition: Stable Prescriptions: No Action metoprolol succinate 25 mg tablet extended release 24 hr 25 mg PO BID Qty: 180 1RF divalproex [Depakote] 250 mg tablet,delayed release (DR/EC) 250 mg PO TID Xarelto 20 mg tablet 20 mg PO DAILY Qty: 30 0RF Rx Instructions: must administer with evening meal epinephrine 0.15 mg/0.3 mL Auto-Injector 0.15 mg IM DAILY PRN (Reason: Allergic Reaction) Rx Instructions: do not exceed 12 doses per 24 hrs nitroglycerin 0.4 mg Tablet, Sublingual 0.4 mg SUBLINGUAL Q5M PRN (Reason: Chest Pain) Rx Instructions: do not exceed 3 doses per episode atorvastatin 40 mg tablet 40 mg PO BEDTIME losartan 25 mg tablet 25 mg PO DAILY albuterol sulfate 90 mcg/actuation HFA aerosol inhaler 2 puff inhalation Q6H PRN (Reason: Shortness Of Breath Or Wheezing) pantoprazole 40 mg tablet,delayed release (DR/EC) 40 mg PO BID 30 Days Qty: 30 5RF Discharge Orders: Discharge ED (Routine); Ordered 02/16/23 Ordered By: Yanni Cunningham Referrals: Vandana Malcolm [Primary Care Provider] - Discharge Diet: Usual diet Discharge Activity: Resume usual activity Patient Instructions: Opioid Safety, Pain Management Activity Restrictions/Additional Instructions: Take Benadryl tablets as discussed. Keep epinephrine pen available if needed. Follow-up with PCP in 2 to 3 days if no improvement. Recommend pushing fluids as patient appears to have some dry mouth. Also recommended sour candy to help with the dry mouth. Coding Level of Care Code ED Splitting Machine Feeder for Briana Chan
[2023-02-16] MEDS: triamcinolone 40 mg/mL SDV IM (14:14)
[2023-02-16 14:26] VITALS: BP 138/81; PULSE 70; O2SAT 94
== END 2023-02-16 14:28 | disposition home or self-care (01) ==
PROVIDERS: Emergency Provider Physician Assistant; PCP Registered Nurse
DX: T78.1XXA Other adverse food reactions, not elsewhere classified, initial encounter (principal); F17.210 Nicotine dependence, cigarettes, uncomplicated; I25.10 Atherosclerotic heart disease of native coronary artery without angina pectoris; J44.9 Chronic obstructive pulmonary disease, unspecified; Z86.73 Personal history of transient ischemic attack (TIA), and cerebral infarction without residual deficits; I10 Essential (primary) hypertension; E78.2 Mixed hyperlipidemia
CPT/HCPCS: 96372; 99284; J3301

== ENCOUNTER 2023-06-01 19:20 | Emergency (ER) | payer MEDICARE, MEDICAID, SELFPAY ==
[2023-06-01 19:23] VITALS: BP 131/82; PULSE 74; RESP 16; TEMP 36.6; O2SAT 95; BMI 18.6
--- NOTE | 2023-06-01 20:15 | CTR_ITS ---
PROCEDURE INFORMATION: Exam: CT Head Without Contrast Exam date and time: 06/01/2023 9:22 PM Age: 57 years old Clinical indication: Pain; Headache; Patient HX: Frontal FRANCO x 1 week. 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 TECHNIQUE: Imaging protocol: Computed tomography of the head without contrast. Radiation optimization: All CT scans at this facility use at least one of these dose optimization techniques: automated exposure control; mA and/or kV adjustment per patient size (includes targeted exams where dose is matched to clinical indication); or iterative reconstruction. REPORTING DATA: Count of CT and Cardiac NM exams in prior 12 months: This patient has received 0 known CTs and 0 known cardiac nuclear medicine studies in the 12 months prior to the current study. COMPARISON: CT head wo con* [id number] 12/12/2021 10:15 AM RADIATION DOSE METRICS: Total DLP (mGy-cm): 1015.44 FINDINGS: Brain: No acute intracranial hemorrhage. No mass effect or midline shift. Basal cisterns are patent. Normal mao-white matter differentiation. Cerebrovascular calcifications. Cerebral ventricles: No ventriculomegaly. Paranasal sinuses: Visualized sinuses are unremarkable. Mastoid air cells: Visualized mastoid air cells are clear. Bones/joints: No acute calvarial fracture. Soft tissues: Unremarkable. CT/CT head wo con* [id number] IMPRESSION: No acute intracranial findings.
[2023-06-01] MEDS: metoclopramide 5 mg/mL SDV 2 mL 10 MG IVP (20:46)
[2023-06-01] MEDS: dexamethasone 4 mg/mL INJ 8 MG IVP (20:46)
[2023-06-01] MEDS: ketorolac 30 mg/mL INJ 15 MG IVP (20:46)
--- NOTE | 2023-06-01 21:15 | W.ED.HA ---
HPI - Headache General: Chief Complaint: Headache Stated Complaint: headache, sob Time Seen by Provider: 06/01/23 19:53 History of Present Illness: 57-year-old female presenting with headache. She says the headache is lasted for 4 days on and off. Nothing seems to make better or worse. She has no visual changes. No vomiting. No fever. She has been mildly congested, but no other symptoms. She is on Xarelto for history of atrial fibrillation. 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 Associated symptoms: Deny chest pain, confusion, fever(s), nausea, rash or vomiting Review of Systems Const: Denies: fever(s), chills or body aches Eyes: Denies: change in vision Card: Denies: chest pain or palpitations Resp: Denies: dyspnea, productive cough, non-productive cough or wheezing GI: Denies: abdominal pain, nausea, vomiting, diarrhea or hematochezia : Denies: difficulty voiding Skin/Breast: Denies: rash Neuro: Reports: headache(s); Denies: weakness in extremities, dizziness or confusion PFSH ED PFSH: Medical History Abdominal bloating Abdominal pain Bacterial UTI CAD (coronary artery disease) Cellulitis Cellulitis of right thumb Cerumen impaction Cerumen impaction Chest pain COPD (chronic obstructive pulmonary disease) CVA (cerebral vascular accident) Dental infection Environmental and seasonal allergies Essential hypertension Fever blister GERD (gastroesophageal reflux disease) Hematuria Insect bites Lower respiratory infection Medication management Microscopic hematuria Mixed hyperlipidemia Oral candidiasis Vitamin D deficiency Surgical History History of appendectomy History of carpal tunnel surgery History of tubal ligation S/P insertion of iliac artery stent 3 stents right leg Family History Grandfather CAD (coronary artery disease) Grandmother CAD (coronary artery disease) Father CAD (coronary artery disease) Myocardial infarction Age 50s Brother CAD (coronary artery disease) FH: CABG (coronary artery bypass surgery) Other Asthma Social History Smoking and tobacco/nicotine status: current every day tobacco/nicotine user Quit status (tobacco/nicotine): not considering quitting Second hand smoke exposure: No Alcohol intake: never Substance/Drug Use: never Physical Exam Const: COMMON NORMALS: no acute distress GENERAL APPEARANCE: cooperative; not ill appearing and not frail appearing HENMT: COMMON NORMALS: normocephalic, atraumatic and Normal external nose present HEAD & SCALP: normocephalic and atraumatic FACE & SINUS: normal facial exam and face symmetric NOSE: Normal external nose present Eye: COMMON NORMALS: Equal, round and reactive pupils present and EOMs intact bilaterally PUPIL: Yes Equal, round and reactive pupils present Neck/C-Spine: GENERAL: Yes trachea midline Chest: CHEST: Yes Symmetrical chest wall rise Resp: COMMON NORMALS: normal respiratory effort, No retractions, No use of accessory muscles and clear to auscultation bilaterally AUSCULTATION: clear to auscultation bilaterally Cardio: COMMON NORMALS: regular rate and regular rhythm RATE: regular rate RHYTHM: regular rhythm GI: COMMON NORMALS: Normal to inspection, nondistended, normoactive bowel sounds present Extremity: COMMON NORMALS: no pedal edema Neuro: KRISTEN COMA SCALE: document GCS findings Kristen coma scale eye opening: Spontaneous Kristen coma scale verbal response: Orientated Kristen coma scale motor response: Obey commands Kristen coma scale total score: 15 SENSORY EXAM: Yes extremities (intact) Psych: COMMON NORMALS: speech normal SPEECH: Yes normal speech Skin: COMMON NORMALS: no rashes or lesions noted GENERAL SKIN EXAM: no rashes or lesions noted Course Vital Signs: Vital signs: Vital Signs Temperature 97.9 F 06/01/23 19:23 Pulse Rate 74 06/01/23 19:23 Respiratory Rate 16 06/01/23 19:23 Blood Pressure 131/82 06/01/23 19:23 Pulse Oximetry 95 06/01/23 19:23 Oxygen Delivery Me thod Room Air 06/01/23 19:23 MDM - Headache Medical Decision Making CT is negative. No evidence of hemorrhage. Pain is improved after medication here. No sinusitis on CT. her pain is improved. She elected not to take the morphine. She will be discharged home. She is concerned about taking medication, as she has decently bad alpha gal reactions. Lab Data Radiology Impressions Head CT 06/01/23 20:15 IMPRESSION: No acute intracranial findings. All radiology interpretation(s) finalized by discharge Discharge Plan Discharge Patient Disposition: Home Clinical Impression: Headache Condition: Stable Prescriptions: New ketorolac 10 mg tablet 10 mg PO TID PRN (Reason: pain) Qty: 7 0RF No Action metoprolol succinate 25 mg tablet extended release 24 hr 25 mg PO BID Qty: 180 1RF divalproex [Depakote] 250 mg tablet,delayed release (DR/EC) 250 mg PO TID Xarelto 20 mg tablet 20 mg PO DAILY Qty: 30 0RF Rx Instructions: must administer with evening meal epinephrine 0.15 mg/0.3 mL Auto-Injector 0.15 mg IM DAILY PRN (Reason: Allergic Reaction) Rx Instructions: do not exceed 12 doses per 24 hrs nitroglycerin 0.4 mg Tablet, Sublingual 0.4 mg SUBLINGUAL Q5M PRN (Reason: Chest Pain) Rx Instructions: do not exceed 3 doses per episode atorvastatin 40 mg tablet 40 mg PO BEDTIME losartan 25 mg tablet 25 mg PO DAILY albuterol sulfate 90 mcg/actuation HFA aerosol inhaler 2 puff inhalation Q6H PRN (Reason: Shortness Of Breath Or Wheezing) pantoprazole 40 mg tablet,delayed release (DR/EC) 40 mg PO BID 30 Days Qty: 30 5RF Discharge Orders: Discharge ED (Routine); Ordered 06/01/23 Ordered By: Heron Villanueva Referrals: Vandana Malcolm [Primary Care Provider] - 1-3 days Patient Instructions: Acute Headache (ED) Activity Restrictions/Additional Instructions: Medication as prescribed, for 3 doses for head. If headache resolved, do not take more medication. Return for worsening pain, language problems, vision problems, weakness, vomiting, other concerns. See your doctor this week. Coding Level of Care Code ED Drug Room Operator for Briana Chan
[2023-06-01 21:41] VITALS: BP 123/60; PULSE 70; RESP 18; O2SAT 95
== END 2023-06-01 21:49 | disposition home or self-care (01) ==
PROVIDERS: Emergency Provider Emergency Medicine; PCP Registered Nurse
DX: R51.9 Headache, unspecified (principal); Z72.0 Tobacco use; I25.10 Atherosclerotic heart disease of native coronary artery without angina pectoris; J44.9 Chronic obstructive pulmonary disease, unspecified; Z86.73 Personal history of transient ischemic attack (TIA), and cerebral infarction without residual deficits; I10 Essential (primary) hypertension; E78.2 Mixed hyperlipidemia
CPT/HCPCS: 70450; 96374; 96375; 99285; J1100; J1885; J2765

== ENCOUNTER 2023-08-05 10:11 | Emergency (ER) | payer MEDICARE, MEDICAID, SELFPAY ==
--- NOTE | 2023-08-05 10:15 | ECG_ITS ---
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 Measurements Intervals [place] Rate: 68 P: 55 RI: 134 QRS: 74 QRSD: 93 T: 77 QT: 394 QTc: 420 Interpretive Statements SINUS RHYTHM MINIMAL VOLTAGE CRITERIA FOR LVH, CONSIDER NORMAL VARIANT [MEETS CRITERIA IN ONE OF: R(aVL), S(V1), R(V5), R(V5/V6)+S(V1)] Compared to ECG 04/05/2022 12:49:36 Sinus bradycardia no longer present Sinus arrhythmia no longer present Electronically Signed On 08-05-2023 21:38:40 SEALANT MIXER by Lisbet Omer M.D. [id number]
[2023-08-05 10:19] VITALS: BP 144/78; PULSE 72; RESP 16; TEMP 36.4; O2SAT 96; BMI 18.9
--- NOTE | 2023-08-05 10:26 | XR_ITS ---
WS: [id number] PORTABLE CHEST HISTORY: chest pain COMPARISON: 04/05/2022 Lungs are clear and well expanded. No pleural effusion or pneumothorax. Cardiac size: Normal. Mediastinum/Aorta: Normal mediastinum. Mild thoracolumbar scoliosis. IMPRESSION: Unremarkable portable chest.
[2023-08-05 10:46] LABS: Basophils # 0.1 10^3/uL (0.0-0.1); Basophils % 0.7 %; Eosinophils % 0.6 %; Hematocrit 44.8 % (36-47); Lymphocytes # 2.3 10^3/uL (0.8-4.8); Lymphocytes % 33.9 %; Mean Corpuscular HGB Conc 33.3 g/dL (30-55); Mean Corpuscular Hemoglobin 30.3 pg (27-33); Mean Corpuscular Volume 91.1 fl (85-98); Monocytes # 0.5 10^3/uL (0.2-0.9); Monocytes % 6.6 %; Neutrophils # 3.97 10^3/uL (1.8-7.7); Neutrophils % 57.9 %; Nucleated Red Blood Cells % 0 %; Platelet Count 237 10^3/cmm (157-399); Red Blood Count 4.92 10^6/uL (3.85-5.65); Red Cell Distribution Width 12.8 % (12.1-15.1); White Blood Count 6.85 10^3/uL (3.29-11.43)
[2023-08-05 11:03] LABS: Alanine Aminotransferase 26 U/L (0-33); Albumin Level 3.9 g/dL (3.5-5.2); Alkaline Phosphatase 81 U/L (35-105); Aspartate Amino Transferase 18 U/L (0-32); Blood Urea Nitrogen 15 mg/dL (6-20); Calcium 9.5 mg/dL (8.5-10.5); Carbon Dioxide 27 mmol/L (22-29); Chloride 103 mmol/L (98-107); Globulin 2.8 g/dL (1.3-4.6); Glomerular Filtration Rate 103.8 mL/min (90-130); Glucose 91 mg/dL (65-115); Lipase 58 U/L (13-60); Osmolality Calculated 288 mOsm/kg (285-295); Sodium 139 mmol/L (136-145); Total Bilirubin 0.2 mg/dL (0.15-1.2); Total Protein 6.7 g/dL (6.6-8.7); Troponin(5th) Baseline < 6 ng/L (0-10)
--- NOTE | 2023-08-05 12:26 | ECG_ITS ---
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 Measurements Intervals [place] Rate: 67 P: 51 IN: 143 QRS: 76 QRSD: 92 T: 82 QT: 405 QTc: 430 Interpretive Statements SINUS RHYTHM Compared to ECG 08/05/2023 10:15:46 No significant changes Electronically Signed On 08-05-2023 21:48:48 ASSORTMENT PLANNER by Lisbet Omer M.D. [id number]
[2023-08-05 12:58] LABS: Troponin 5 2HR Delta 0.00001 ABS# (0-10)
--- NOTE | 2023-08-05 14:49 | ED_ITS ---
HPI - Chest Pain 2 General: Chief Complaint: Chest Pain Stated Complaint: Cp, left arm pain Time Seen by Provider: 08/05/23 14:06 History of Present Illness: 57-year-old female with a relevant past medical history of COPD, coronary artery disease, gastroesophageal reflux disease, hypertension, hyperlipidemia presents with epigastric discomfort that started around 9 AM this morning. She reports that she has not been eating or drinking much because of every diagnosis of alpha gal. She reports she tried drinking some Sprite and this seemed to make it worse. No pleuritic component, exertional component, lightheadedness, shortness of breath, diaphoresis, syncope, swelling, orthopnea, PND. Chest pain has been gone since right around the time that she arrived to the emergency department. She denies black or bloody stools. In the past she was managed with Protonix for GERD. She does still have her gallbladder. No right upper quadrant pain right flank pain or right shoulder pain. Associated symptoms: Deny dyspnea, fever(s), nausea, syncope or vomiting Review of Systems 2 General: Reports: 10 or more systems reviewed and unremarkable except in HPI and below Const: Denies: fever(s), chills or body aches Eyes: Denies: change in vision ENMT: Denies: throat pain Card: Denies: edema or syncope Resp: Denies: dyspnea or productive cough GI: Denies: nausea, vomiting or diarrhea : Denies: flank pain, dysuria or urinary frequency Musc: Denies: neck pain, back pain, extremity pain or extremity swelling Skin/Breast: Denies: rash or erythema Neuro: Denies: headache(s), numbness in extremities, weakness in extremities, lack of coordination or difficulty walking PFSH ED 2 PFSH: Medical History Abdominal bloating Abdominal pain Bacterial UTI CAD (coronary artery disease) Cellulitis Cellulitis of right thumb Cerumen impaction Cerumen impaction Chest pain COPD (chronic obstructive pulmonary disease) CVA (cerebral vascular accident) Dental infection Environmental and seasonal allergies Essential hypertension Fever blister GERD (gastroesophageal reflux disease) Hematuria Insect bites Lower respiratory infection Medication management Microscopic hematuria Mixed hyperlipidemia Oral candidiasis Vitamin D deficiency Surgical History History of appendectomy History of carpal tunnel surgery History of tubal ligation S/P insertion of iliac artery stent 3 stents right leg Family History Grandfather CAD (coronary artery disease) Grandmother CAD (coronary artery disease) Father CAD (coronary artery disease) Myocardial infarction Age 50s Brother CAD (coronary artery disease) FH: CABG (coronary artery bypass surgery) Other Asthma Social History Smoking and tobacco/nicotine status: current every day tobacco/nicotine user Quit status (tobacco/nicotine): not considering quitting Second hand smoke exposure: No Alcohol intake: never Substance/Drug Use: never Physical Exam 2 Narrative: EXAM NARRATIVE: Smelled strongly of cigarette smoke in the room Const: COMMON NORMALS: no limitations, alert and well nourished EXAM LIMITATIONS: no altered mental status HENMT: COMMON NORMALS: normocephalic, atraumatic and external ears normal H EAD & SCALP: normocephalic and atraumatic EXTERNAL EAR: Yes external ears normal MOUTH: no muffled voice Eye: COMMON NORMALS: EOMs intact bilaterally, conjunctivae normal and no scleral icterus CONJUNCTIVA: Yes conjunctivae normal Neck/C-Spine: COMMON NORMALS: no JVD GENERAL: Yes normal visual inspection and Yes trachea midline Chest: CHEST: Yes Symmetrical chest wall rise, No crepitus and No localized rib tenderness with anteroposterior compression Resp: COMMON NORMALS: normal respiratory effort, No use of accessory muscles and clear to auscultation bilaterally AUSCULTATION: clear to auscultation bilaterally Cardio: COMMON NORMALS: no JVD, regular rate and regular rhythm RATE: r egular rate RHYTHM: regular rhythm GI: COMMON NORMALS: Soft to palpation and non-tender PALPATION: Yes Soft to palpation and No Guarding due to palpation present (GI) Extremity: COMMON NORMALS: normal to inspection Neuro: COMMON NORMALS: moves all extremities, no focal motor deficits and no sensory deficits noted SENSORIUM/ORIENTATION: Yes alert SPEECH: speech normal Psych: COMMON NORMALS: mental status grossly normal, Normal thought process present, cooperative, normal affect and speech normal SPEECH: Yes normal speech THOUGHT PROCESS: Normal thought process present Skin: COMMON NORMALS: no rashes or lesions noted, turgor normal and no jaundice GENERAL SKIN EXAM: no rashes or lesions noted and turgor normal Course 2 Vital Signs: Vital signs: Vital Signs Temperature 97.5 F L 08/05/23 10:19 Pulse Rate 72 08/05/23 10:19 Respiratory Rate 16 08/05/23 10:19 Blood Pressure 144/78 08/05/23 10:19 Pulse Oximetry 96 08/05/23 10:19 Oxygen Delivery Me thod Room Air 08/05/23 10:19 MDM - Chest Pain Medical Decision Making This is a nontoxic-appearing 57-year-old female who had pain just below her xiphoid in the epigastrium this morning. Abdominal exam is benign. Chest pain is resolved. Troponin #1 and #2 are reassuring. EKG is nonischemic. Chest x- ray without any acute findings. She does have a history of coronary artery disease that was nonobstructive. It is reasonable to do a follow-up stress test after she considers the risk benefits and alternatives with her primary care doctor. I think that the cause of the pain is most likely to be gastrointestinal in origin. I am going to place the patient back on Protonix. Discussed all of these results with the patient as well as differential diagnosis and plan for treatment and follow-up. Patient is in agreement. Lab Data 08/05/23 10:35 08/05/23 10:35 Laboratory Results WBC 6.85 10^3/uL (3.29-11.43) 08/05/23 10:35 RBC 4.92 10^6/uL (3.85-5.65) 08/05/23 10:35 Hgb 14.90 g/dL (11.27-16.99) 08/05/23 10:35 Hct 44.8 % (36-47) 08/05/23 10:35 MCV 91.1 fl (85-98) 08/05/23 10:35 MCH 30.3 pg (27-33) 08/05/23 10:35 MCHC 33.3 g/dL (30-55) 08/05/23 10:35 RDW 12.8 % (12.1-15.1) 08/05/23 10:35 Plt Count 237 10^3/cmm (157-399) 08/05/23 10:35 MPV 10.0 fL (7.4-10.4) 08/05/23 10:35 Neut % (Auto) 57.9 % 08/05/23 10:35 Lymph % (Auto) 33.9 % 08/05/23 10:35 [place] % (Auto) 6.6 % 08/05/23 10:35 Eos % (Auto) 0.6 % 08/05/23 10:35 Baso % (Auto) 0.7 % 08/05/23 10:35 Neut # (Auto) 3.97 10^3/uL (1.8-7.7) 08/05/23 10:35 Lymph # (Auto) 2.3 10^3/uL (0.8-4.8) 08/05/23 10:35 [place] # (Auto) 0.5 10^3/uL (0.2-0.9) 08/05/23 10:35 Eos # (Auto) 0.0 10^3/uL (0.0-0.8) 08/05/23 10:35 Baso # (Auto) 0.1 10^3/uL (0.0-0.1) 08/05/23 10:35 Nucleated RBC % (auto) 0 % 08/05/23 10:35 Nucleated RBCs # 0.0 /100WBC 08/05/23 10:35 Sodium 139 mmol/L (136-145) 08/05/23 10:35 Potassium 4.0 mmol/L (3.5-5.1) 08/05/23 10:35 Chloride 103 mmol/L (98-107) 08/05/23 10:35 Carbon Dioxide 27 mmol/L (22-29) 08/05/23 10:35 Anion Gap 13.0 (5-19) 08/05/23 10:35 BUN 15 mg/dL (6-20) 08/05/23 10:35 Creatinine 0.6 mg/dL (0.5-0.9) 08/05/23 10:35 GFR Calculation 103.8 mL/min (90-130) 08/05/23 10:35 Glucose 91 mg/dL (65-115) 08/05/23 10:35 Calculated Osmolality 288 mOsm/kg (285-295) 08/05/23 10:35 Calcium 9.5 mg/dL (8.5-10.5) 08/05/23 10:35 Total Bilirubin 0.2 mg/dL (0.15-1.2) 08/05/23 10:35 AST 18 U/L (0-32) 08/05/23 10:35 ALT 26 U/L (0-33) 08/05/23 10:35 Alkaline Phosphatase 81 U/L (35-105) 08/05/23 10:35 Troponin T Baseline < 6 ng/L (0-10) 08/05/23 10:35 Troponin T 120 Minute 6.00 ng/L (0-10) 08/05/23 12:33 Delta Troponin T 0.27574 ABS# (0-10) 08/05/23 12:33 Total Protein 6.7 g/dL (6.6-8.7) 08/05/23 10:35 Albumin 3.9 g/dL (3.5-5.2) 08/05/23 10:35 Globulin 2.8 g/dL (1.3-4.6) 08/05/23 10:35 Lipase 58 U/L (13-60) 08/05/23 10:35 All radiology interpretation(s) finalized by discharge ED provider radiology interpretation(s): CXR 1 View NAD per radiologist. EKG Data EKG 1: Computer generated interpretation: EP interpretation, EKG obtained at 1405, sinus rhythm, normal axis, normal intervals, no concerning ST segment elevations or depressions. No ectopy Discharge Plan Discharge Patient Disposition: Home Clinical Impression: Atypical chest pain, Hx of coronary artery disease, Cigarette smoker Condition: Stable Prescriptions: New Protonix 20 mg tablet,delayed release (DR/EC) 20 mg PO DAILY 42 Days Qty: 50 0RF No Action metoprolol succinate 25 mg tablet extended release 24 hr 25 mg PO BID Qty: 180 1RF epinephrine 0.15 mg/0.3 mL Auto-Injector 0.15 mg IM DAILY PRN (Reason: Allergic Reaction) Rx Instructions: do not exceed 12 doses per 24 hrs nitroglycerin 0.4 mg Tablet, Sublingual 0.4 mg SUBLINGUAL Q5M PRN (Reason: Chest Pain) Rx Instructions: do not exceed 3 doses per episode atorvastatin 40 mg tablet 40 mg PO BEDTIME losartan 25 mg tablet 25 mg PO DAILY albuterol sulfate 90 mcg/actuation HFA aerosol inhaler 2 puff inhalation Q6H PRN (Reason: Shortness Of Breath Or Wheezing) Xarelto 20 mg tablet 20 mg PO QPM Discharge Orders: Discharge ED (Routine); Ordered 08/05/23 Ordered By: Tru Orantes Referrals: Vandana Malcolm [Primary Care Provider] - 1-3 days (ER f/u for chest pain) Discharge Diet: Advance as tolerated Discharge Activity: Resume usual activity Patient Instructions: Chest Pain (ED), Pain Management Activity Restrictions/Additional Instructions: Please schedule follow-up with your primary care doctor. Chest pain can be from multiple different causes. In your case, it seems atypical but you have a history of coronary artery disease and multiple risk factors. You can reduce your risk of having a heart attack or lung disease by stopping smoking. You have also noted that you have been having difficulty with your diet and losing weight. This can lead to gastritis and even esophageal reflux. I have started you on Protonix. Return the emergency department if you have new or worsening chest pain, unprovoked sweating, vomiting, abdominal pain that does not resolve, unexplained shortness of breath, or other new or worsening symptoms. Coding Level of Care Code ED Grinder Set Up Operator Surface for Briana Chan
== END 2023-08-05 16:05 | disposition home or self-care (01) ==
PROVIDERS: Physician Assistant; Emergency Provider Emergency Medicine; PCP Registered Nurse
DX: R07.89 Other chest pain (principal); I25.10 Atherosclerotic heart disease of native coronary artery without angina pectoris; F17.210 Nicotine dependence, cigarettes, uncomplicated; J44.9 Chronic obstructive pulmonary disease, unspecified; Z86.73 Personal history of transient ischemic attack (TIA), and cerebral infarction without residual deficits; E78.2 Mixed hyperlipidemia
CPT/HCPCS: 36415; 71045; 80053; 83690; 84484; 85025; 93005; 99285

== ENCOUNTER 2023-11-27 10:59 | Emergency (ER) | payer MEDICARE, MEDICAID, SELFPAY ==
--- NOTE | 2023-11-27 11:07 | ECG_ITS ---
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 Measurements Intervals [place] Rate: 80 P: 88 CO: 149 QRS: 79 QRSD: 92 T: 85 QT: 372 QTc: 431 Interpretive Statements SINUS RHYTHM POSSIBLE LEFT ATRIAL ENLARGEMENT [-0.1mV P-WAVE IN V1/V2] MINIMAL ST DEPRESSION [0.025+ mV ST DEPRESSION] Compared to ECG 08/05/2023 14:05:52 ST (T wave) deviation now present Electronically Signed On 11-27-2023 23:02:24 CDT by Lisbet Omer M.D. [id number]
[2023-11-27 11:14] VITALS: BP 136/79; PULSE 81; RESP 18; TEMP 36.6; O2SAT 95; BMI 17.6
--- NOTE | 2023-11-27 11:28 | ED_ITS ---
HPI - Chest Pain 2 General: Chief Complaint: Chest Pain Stated Complaint: chest & shoulder pain, sob Time Seen by Provider: 11/27/23 11:21 History of Present Illness: 58-year-old female comes in today with c omplaints of mid lower sternal/midepigastric area pain. Patient does have a history of stents placed into her lower extremities. Patient is a chronic tobacco user. Patient has a history of COPD, CAD, PVD, CVA, and hypertension. Patient does routinely take Xarelto. Patient also endorses alpha gal syndrome and epilepsy. Review of Systems 2 General: Reports: 10 or more systems reviewed and unremarkable except in HPI and below Card: Reports: chest pain PFSH ED 2 PFSH: Medical History Abdominal bloating Abdominal pain Bacterial UTI CAD (coronary artery disease) Cellulitis Cellulitis of right thumb Cerumen impaction Cerumen impaction Chest pain COPD (chronic obstructive pulmonary disease) CVA (cerebral vascular accident) Dental infection Environmental and seasonal allergies Essential hypertension Fever blister GERD (gastroesophageal reflux disease) Hematuria Insect bites Lower respiratory infection Medication management Microscopic hematuria Mixed hyperlipidemia Oral candidiasis Vitamin D deficiency Surgical History History of appendectomy History of carpal tunnel surgery History of tubal ligation S/P insertion of iliac artery stent 3 stents right leg Family History Grandfather CAD (coronary artery disease) Grandmother CAD (coronary artery disease) Father CAD (coronary artery disease) Myocardial infarction Age 50s Brother CAD (coronary artery disease) FH: CABG (coronary artery bypass surgery) Other Asthma Social History Smoking and tobacco/nicotine status: current every day tobacco/nicotine user Quit status (tobacco/nicotine): not considering quitting Second hand smoke exposure: No Alcohol intake: never Substance/Drug Use: never Physical Exam 2 Const: COMMON NORMALS: alert HENMT: COMMON NORMALS: normocephalic HEAD & SCALP: normocephalic Neck/C-Spine: COMMON NORMALS: full ROM Chest: COMMONS NORMALS: normal inspection of the chest Resp: COMMON NORMALS: normal respiratory effort and clear to auscultation bilaterally AUSCULTATION: clear to auscultation bilaterally Cardio: COMMON NORMALS: regular rate and regular rhythm RATE: regular rate RHYTHM: regular rhythm GI: COMMON NORMALS: Soft to palpation PALPATION: Yes Soft to palpation and Yes Tenderness to palpation present (GI) (Epigastric) : COMMON NORMALS: Yes no CVA tenderness BLADDER/KIDNEY EXAM: Yes no CVA tenderness Back/Pelvis: COMMON NORMALS: no CVA tenderness Extremity: COMMON NORMALS: normal to inspection and no pedal edema Neuro: SENSORIUM/ORIENTATION: Yes alert Skin: COMMON NORMALS: turgor normal GENERAL SKIN EXAM: turgor normal Course 2 Vital Signs: Vital signs: Vital Signs Temperature 97.8 F 11/27/23 11:14 Pulse Rate 65 11/27/23 12:46 Respiratory Rate 20 H 11/27/23 12:46 Blood Pressure 136/79 11/27/23 11:14 Pulse Oximetry 96 11/27/23 12:46 Oxygen Delivery Me thod Room Air 11/27/23 11:14 MDM - Chest Pain Medical Decision Making Patient presents today with midepigastric to lower sternal chest pain. On exam patient appears nontoxic. Patient does appear in moderate to severe pain. Abdomen soft with some tenderness in the midepigastric region. Vital signs are normal. Differential diagnosis includes but not limited to ACS, gallbladder colic, pancreatitis, peptic ulcer disease, esophagitis. Chest x-ray was normal. Laboratory values showed no significant abnormalities. Repeat troponin was unchanged and negative. Patient was pain-free after medication of nitro, Zofran, aspirin, and fentanyl 45 mcg. Patient remained pain-free for throughout the remainder of the ER stay. I suspect possibly an esophageal spasm secondary to esophagitis. I will recommend low follow-up with cardiology for further evaluation to rule out cardiac abnormality. Patient then was recommended to follow-up with primary care to rule out other abnormalities. Patient reported understanding. Lab Data 11/27/23 11:57 11/27/23 11:57 Laboratory Results WBC 5.10 10^3/uL (3.29-11.43) 11/27/23 11:57 RBC 4.75 10^6/uL (3.85-5.65) 11/27/23 11:57 Hgb 14.30 g/dL (11.27-16.99) 11/27/23 11:57 Hct 42.8 % (36-47) 11/27/23 11:57 MCV 90.1 fl (85-98) 11/27/23 11:57 MCH 30.1 pg (27-33) 11/27/23 11:57 MCHC 33.4 g/dL (30-55) 11/27/23 11:57 RDW 12.8 % (12.1-15.1) 11/27/23 11:57 Plt Count 220 10^3/cmm (157-399) 11/27/23 11:57 MPV 10.2 fL (7.4-10.4) 11/27/23 11:57 Neut % (Auto) 41.9 % 11/27/23 11:57 Lymph % (Auto) 49.4 % 11/27/23 11:57 [place] % (Auto) 6.3 % 11/27/23 11:57 Eos % (Auto) 1.2 % 11/27/23 11:57 Baso % (Auto) 1.0 % 11/27/23 11:57 Neut # (Auto) 2.14 10^3/uL (1.8-7.7) 11/27/23 11:57 Lymph # (Auto) 2.5 10^3/uL (0.8-4.8) 11/27/23 11:57 [place] # (Auto) 0.3 10^3/uL (0.2-0.9) 11/27/23 11:57 Eos # (Auto) 0.1 10^3/uL (0.0-0.8) 11/27/23 11:57 Baso # (Auto) 0.1 10^3/uL (0.0-0.1) 11/27/23 11:57 Nucleated RBC % (auto) 0 % 11/27/23 11:57 Nucleated RBCs # 0.0 /100WBC 11/27/23 11:57 Sodium 138 mmol/L (136-145) 11/27/23 11:57 Potassium 4.2 mmol/L (3.5-5.1) 11/27/23 11:57 Chloride 104 mmol/L (98-107) 11/27/23 11:57 Carbon Dioxide 24 mmol/L (22-29) 11/27/23 11:57 Anion Gap 14.2 (5-19) 11/27/23 11:57 BUN 15 mg/dL (6-20) 11/27/23 11:57 Creatinine 0.6 mg/dL (0.5-0.9) 11/27/23 11:57 GFR Calculation 103.4 mL/min (90-130) 11/27/23 11:57 Glucose 127 mg/dL (65-115) H 11/27/23 11:57 Calculated Osmolality 288 mOsm/kg (285-295) 11/27/23 11:57 Calcium 9.2 mg/dL (8.5-10.5) 11/27/23 11:57 Total Bilirubin 0.4 mg/dL (0.15-1.2) 11/27/23 11:57 AST 17 U/L (0-32) 11/27/23 11:57 ALT 19 U/L (0-33) 11/27/23 11:57 Alkaline Phosphatase 72 U/L (35-105) 11/27/23 11:57 Troponin T Baseline < 6 ng/L (0-10) 11/27/23 11:57 Troponin T 120 Minute 6.00 ng/L (0-10) 11/27/23 13:50 Delta Troponin T 0.76356 ABS# (0-10) 11/27/23 13:50 Total Protein 6.4 g/dL (6.6-8.7) L 11/27/23 11:57 Albumin 3.9 g/dL (3.5-5.2) 11/27/23 11:57 Globulin 2.5 g/dL (1.3-4.6) 11/27/23 11:57 Lipase 26 U/L (13-60) 11/27/23 11:57 All radiology interpretation(s) finalized by discharge EKG Data EKG 1: I personally reviewed and interpreted this EKG as follows: EKG interpretation date: 11/27/23 EKG interpretation time: 11:10 Prior EKG tracings: not available for review Interpretation: EKG shows sinus rhythm with a regular rate at [address] elevation is obviously noted, no ectopy otherwise is noted. Computer generated interpretation: Sinus rhythm, possible left atrial enlargement, minimal ST depression, compared to EKG from 08/05/2023, ST deviation now present. Discharge Plan Discharge Patient Disposition: Home Clinical Impression: Chest pain Condition: Stable Prescriptions: New pantoprazole 20 mg tablet,delayed release (DR/EC) 20 mg PO DAILY Qty: 30 0RF No Action epinephrine 0.15 mg/0.3 mL Auto-Injector 0.15 mg IM DAILY PRN (Reason: Allergic Reaction) Rx Instructions: do not exceed 12 doses per 24 hrs nitroglycerin 0.4 mg Tablet, Sublingual 0.4 mg SUBLINGUAL Q5M PRN (Reason: Chest Pain) Rx Instructions: do not exceed 3 doses per episode atorvastatin 40 mg tablet 40 mg PO BEDTIME losartan 25 mg tablet 25 mg PO DAILY albuterol sulfate 90 mcg/actuation HFA aerosol inhaler 2 puff inhalation Q6H PRN (Reason: Shortness Of Breath Or Wheezing) Xarelto 20 mg tablet 20 mg PO QPM albuterol sulfate 2.5 mg /3 mL (0.083 %) solution for nebulization 2.5 mg inhalation Q6H PRN (Reason: Shortness Of Breath) metoprolol succinate 25 mg tablet extended release 24 hr 25 mg PO QPM Discharge Orders: Discharge ED (Routine); Ordered 11/27/23 Ordered By: Tristin Alfonso Referrals: Vandana Malcolm [Primary Care Provider] - Discharge Diet: Usual diet Discharge Activity: Increase activity as tolerated Patient Instructions: Chest Pain (ED) Activity Restrictions/Additional Instructions: Take pantoprazole as directed for concerns of possible esophagitis. Case management will reach out to you regarding follow-up with cardiology for further evaluation and treatment. Follow-up with primary care for other recommendations. Coding Level of Care Code ED Licensed Optical Dispenser for Briana Chan
[2023-11-27] MEDS: nitroglycerin 0.4 mg sublingual Tablet 0.400000000000000022 MG SUBLINGUAL (11:37)
[2023-11-27] MEDS: aspirin 81 mg Chew Tablet 162 MG PO (11:37)
[2023-11-27] MEDS: ondansetron 2 mg/ML SDV 2 mL 4 MG IVP (11:45)
[2023-11-27] MEDS: pantoprazole 40 mg SDV IVP (11:47)
[2023-11-27] MEDS: fentaNYL 50 mcg/mL INJ 2mL 45 MCG IVP (11:49)
[2023-11-27] MEDS: sodium chloride 0.9% 500 ML 999 ML IV (11:55)
--- NOTE | 2023-11-27 12:10 | PC.PHAR ---
PT STATES METOPROLOL SUCC ER 25 MG IS ONCE DAILY AT NIGHT. ORIGINAL RX IS FOR 25MG TWICE DAILY.
[2023-11-27 12:12] LABS: Basophils # 0.1 10^3/uL (0.0-0.1); Eosinophils # 0.1 10^3/uL (0.0-0.8); Eosinophils % 1.2 %; Hematocrit 42.8 % (36-47); Lymphocytes # 2.5 10^3/uL (0.8-4.8); Lymphocytes % 49.4 %; Mean Corpuscular HGB Conc 33.4 g/dL (30-55); Mean Corpuscular Hemoglobin 30.1 pg (27-33); Mean Corpuscular Volume 90.1 fl (85-98); Mean Platelet Volume 10.2 fL (7.4-10.4); Monocytes # 0.3 10^3/uL (0.2-0.9); Monocytes % 6.3 %; Neutrophils # 2.14 10^3/uL (1.8-7.7); Neutrophils % 41.9 %; Nucleated Red Blood Cells % 0 %; Platelet Count 220 10^3/cmm (157-399); Red Blood Count 4.75 10^6/uL (3.85-5.65); Red Cell Distribution Width 12.8 % (12.1-15.1)
[2023-11-27 12:29] LABS: Alanine Aminotransferase 19 U/L (0-33); Albumin Level 3.9 g/dL (3.5-5.2); Alkaline Phosphatase 72 U/L (35-105); Aspartate Amino Transferase 17 U/L (0-32); Blood Urea Nitrogen 15 mg/dL (6-20); Calcium 9.2 mg/dL (8.5-10.5); Carbon Dioxide 24 mmol/L (22-29); Chloride 104 mmol/L (98-107); Creatinine Clr Calc Pharmacy 81.9507; Globulin 2.5 g/dL (1.3-4.6); Glomerular Filtration Rate 103.4 mL/min (90-130); Glucose 127 mg/dL (65-115); Lipase 26 U/L (13-60); Osmolality Calculated 288 mOsm/kg (285-295); Sodium 138 mmol/L (136-145); Total Bilirubin 0.4 mg/dL (0.15-1.2); Total Protein 6.4 g/dL (6.6-8.7); Troponin(5th) Baseline < 6 ng/L (0-10)
[2023-11-27 12:36] LABS: Anion Gap 14.2 (5-19); Potassium 4.2 mmol/L (3.5-5.1)
[2023-11-27 12:46] VITALS: PULSE 65; RESP 20; O2SAT 96
--- NOTE | 2023-11-27 13:04 | ECG_ITS ---
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 Measurements Intervals [place] Rate: 50 P: 76 NE: 154 QRS: 77 QRSD: 92 T: 78 QT: 452 QTc: 415 Interpretive Statements SINUS BRADYCARDIA Compared to ECG 11/27/2023 11:07:53 Sinus rhythm no longer present ST (T wave) deviation no longer present Electronically Signed On 11-27-2023 23:13:37 CDT by Lisbet Omer M.D. [email or web address] hospitalSol Mar REI/store/OM/[id number]
[2023-11-27 14:15] LABS: Troponin 5 2HR Delta 0.00001 ABS# (0-10)
--- NOTE | 2023-11-29 10:07 | DCPLANNER ---
Sent cardiology referral [id number] @[phone]
== END 2023-11-27 15:01 | disposition home or self-care (01) ==
PROVIDERS: Emergency Provider Nurse Practitioner Family; PCP Registered Nurse
DX: R07.9 Chest pain, unspecified (principal); Z72.0 Tobacco use; I25.10 Atherosclerotic heart disease of native coronary artery without angina pectoris; J44.9 Chronic obstructive pulmonary disease, unspecified; Z86.73 Personal history of transient ischemic attack (TIA), and cerebral infarction without residual deficits; I10 Essential (primary) hypertension; E78.2 Mixed hyperlipidemia
CPT/HCPCS: 80053; 83690; 84484; 85025; 93005; 96374; 96375; 99284; C9113; J2405; J3010; J7040

== ENCOUNTER 2024-02-01 08:30 | Emergency (ER) | payer MEDICARE, MEDICAID, SELFPAY ==
[2024-02-01 08:36] VITALS: BP 139/71; PULSE 62; RESP 18; TEMP 36.7; O2SAT 93; BMI 17.3
[2024-02-01 08:58] VITALS: BP 139/71; PULSE 64; O2SAT 96
--- NOTE | 2024-02-01 09:00 | CTR_ITS ---
PROCEDURE INFORMATION: Exam: CT Head Without Contrast Exam date and time: 02/01/2024 9:08 AM Age: 58 years old Clinical indication: Pain; Headache not specified; Additional info: FRANCO TECHNIQUE: Imaging protocol: Computed tomography of the head without contrast. Radiation optimization: All CT scans at this facility use at least one of these dose optimization techniques: automated exposure control; mA and/or kV adjustment per patient size (includes targeted exams where dose is matched to clinical indication); or iterative reconstruction. COMPARISON: CT head wo con* [id number] 06/01/2023 9:22 PM RADIATION DOSE METRICS: Total DLP (mGy-cm): 992.35 FINDINGS: Brain: No new intracranial hemorrhage or new intracranial mass effect is identified compared to previous exam of 06/01/2023. The ventricles are stable size and position. There are no subdural collections. Cerebral ventricles: See Brain finding. Paranasal sinuses: Visualized portions of paranasal sinuses are well aerated. Mastoid air cells: Visualized portions of mastoid sinuses are not opacified. Bones: Unremarkable. No acute fracture. Soft tissues: Other than as stated above, no obvious acute abnormality. CT/CT head wo con* [id number] IMPRESSION: No acute intracranial hemorrhage or mass effect identified. No new intracranial abnormality detected compared to 06/01/2023.
[2024-02-01] MEDS: diphenhydrAMINE 50 mg/mL SDV 1mL IVP (09:04)
[2024-02-01] MEDS: metoclopramide 5 mg/mL SDV 2 mL 10 MG IVP (09:04)
--- NOTE | 2024-02-01 09:08 | W.ED.HA ---
HPI - Headache General: Chief Complaint: Headache Stated Complaint: headache Time Seen by Provider: 02/01/24 08:57 Source: patient Mode of arrival: ambulatory Limitations: no limitations History of Present Illness: 58-year-old female states she has been having headache for the last 3 days she states it is gradually worsening right side of her head states a history of migraines and this feels similar she has had photophobia and phonophobia rates her headache an 8 out of 10 currently denies this being the worst headache of her life. She has had a history of an aneurysm in the past as well. Associated symptoms: Deny chest pain, fever(s), nausea, rash or vomiting Review of Systems Const: Denies: fever(s), chills, body aches or change in appetite ENMT: Denies: throat pain or dental pain Card: Denies: chest pain Resp: Denies: dyspnea GI: Denies: abdominal pain, nausea, vomiting or diarrhea Musc: Denies: neck pain or back pain Skin/Breast: Denies: rash Neuro: Reports: headache(s) PFSH ED PFSH: Medical History Abdominal bloating Abdominal pain Bacterial UTI CAD (coronary artery disease) Cellulitis Cellulitis of right thumb Cerumen impaction Cerumen impaction Chest pain COPD (chronic obstructive pulmonary disease) CVA (cerebral vascular accident) Dental infection Environmental and seasonal allergies Essential hypertension Fever blister GERD (gastroesophageal reflux disease) Hematuria Insect bites Lower respiratory infection Medication management Microscopic hematuria Mixed hyperlipidemia Oral candidiasis Vitamin D deficiency Surgical History History of appendectomy History of carpal tunnel surgery History of tubal ligation S/P insertion of iliac artery stent 3 stents right leg Family History Grandfather CAD (coronary artery disease) Grandmother CAD (coronary artery disease) Father CAD (coronary artery disease) Myocardial infarction Age 50s Brother CAD (coronary artery disease) FH: CABG (coronary artery bypass surgery) Other Asthma Social History Smoking and tobacco/nicotine status: current every day tobacco/nicotine user Quit status (tobacco/nicotine): not considering quitting Second hand smoke exposure: No Alcohol intake: never Substance/Drug Use: never Physical Exam Const: COMMON NORMALS: no acute distress, patient oriented x3 and healthy appearing HENMT: COMMON NORMALS: normocephalic and atraumatic HEAD & SCALP: normocephalic and atraumatic Neck/C-Spine: COMMON NORMALS: full ROM and supple Chest: COMMONS NORMALS: normal inspection of the chest Resp: COMMON NORMALS: normal respiratory effort Cardio: COMMON NORMALS: regular rate, regular rhythm and No murmurs present (Cardio) RATE: regular rate RHYTHM: regular rhythm Extremity: COMMON NORMALS: normal to inspection and full ROM Neuro: COMMON NORMALS: patient oriented x3, moves all extremities and no focal motor deficits Psych: COMMON NORMALS: mental status grossly normal, Normal thought process present and cooperative THOUGHT PROCESS: Normal thought process present Skin: COMMON NORMALS: no rashes or lesions noted and no wounds GENERAL SKIN EXAM: no rashes or lesions noted Course Vital Signs: Vital signs: Vital Signs Temperature 98.0 F 02/01/24 08:36 Pulse Rate 64 02/01/24 08:58 Respiratory Rate 18 02/01/24 08:36 Blood Pressure 139/71 02/01/24 08:58 Pulse Oximetry 96 02/01/24 08:58 Oxygen Delivery Me thod Room Air 02/01/24 08:58 MDM - Headache Medical Decision Making Patient presents with a headaches likely migraine headache head CT here is normal no signs of subarachnoid hemorrhage she feels much improved here after IV meds she is stable for discharge follow-up with PCP return if worsening. Medical Records I reviewed the patient's medical records. Lab Data Radiology Impressions Head CT 02/01/24 09:00 IMPRESSION: No acute intracranial hemorrhage or mass effect identified. No new intracranial abnormality detected compared to 06/01/2023. All radiology interpretation(s) finalized by discharge Discharge Plan Discharge Patient Disposition: Home Clinical Impression: Headache Condition: Stable Prescriptions: No Action epinephrine 0.15 mg/0.3 mL Auto-Injector 0.15 mg IM DAILY PRN (Reason: Allergic Reaction) Rx Instructions: do not exceed 12 doses per 24 hrs nitroglycerin 0.4 mg Tablet, Sublingual 0.4 mg SUBLINGUAL Q5M PRN (Reason: Chest Pain) Rx Instructions: do not exceed 3 doses per episode atorvastatin 40 mg tablet 40 mg PO BEDTIME losartan 25 mg tablet 25 mg PO DAILY albuterol sulfate 90 mcg/actuation HFA aerosol inhaler 2 puff inhalation Q6H PRN (Reason: Shortness Of Breath Or Wheezing) Xarelto 20 mg tablet 20 mg PO QPM albuterol sulfate 2.5 mg /3 mL (0.083 %) solution for nebulization 2.5 mg inhalation Q6H PRN (Reason: Shortness Of Breath) metoprolol succinate 25 mg tablet extended release 24 hr 25 mg PO QPM pantoprazole 20 mg tablet,delayed release (DR/EC) 20 mg PO DAILY Qty: 30 0RF Discharge Orders: Discharge ED (Routine); Ordered 02/01/24 Ordered By: Nicol Paz Referrals: Vandana Malcolm [Primary Care Provider] - 7-10 days Discharge Diet: Advance as tolerated Discharge Activity: Resume usual activity Patient Instructions: General Headache (ED) Coding Level of Care Code ED Ampoule Inspector for Briana Chan
[2024-02-01] MEDS: ketorolac 30 mg/mL INJ 15 MG IVP (09:40)
== END 2024-02-01 10:24 | disposition home or self-care (01) ==
PROVIDERS: Emergency Provider Emergency Medicine; PCP Registered Nurse
DX: R51.9 Headache, unspecified (principal); I10 Essential (primary) hypertension; E78.2 Mixed hyperlipidemia; I25.10 Atherosclerotic heart disease of native coronary artery without angina pectoris; J44.9 Chronic obstructive pulmonary disease, unspecified; F17.210 Nicotine dependence, cigarettes, uncomplicated; Z79.899 Other long term (current) drug therapy; Z79.01 Long term (current) use of anticoagulants
CPT/HCPCS: 70450; 96374; 96375; 99285; J1200; J1885; J2765

== ENCOUNTER 2024-04-17 02:55 | Emergency (ER) | payer MEDICARE, MEDICAID, SELFPAY ==
[2024-04-17 03:09] VITALS: BP 121/63; PULSE 70; RESP 18; TEMP 36.6; O2SAT 97; BMI 20.3
--- NOTE | 2024-04-17 03:09 | W.ED.FEMALGU ---
HPI - Female Genitourinary General: Chief complaint: Urogenital-Female Stated complaint: blood in urin, uti, need different antibiotics Time Seen by Provider: 04/17/24 02:57 Source: patient Mode of arrival: ambulatory Limitations: no limitations History of Present Illness: 58-year-old female states that over the last 5 days she been having burning with urination with hematuria states she saw her PCP was prescribed Macrobid but the pharmacist would not fill it due to her having alpha gal. She states she needs a new antibiotic she denies any vomiting or severe abdominal pain. Associated symptoms: Deny abdominal pain, headache(s) or nausea Related Data Home Medications Medication Instructions Recorded Confirmed albuterol sulfate 90 mcg/actuation 2 puff inhalation Q6H PRN 04/05/22 11/27/23 aerosol inhaler Shortness Of Breath Or Wheezing atorvastatin 40 mg tablet 40 mg PO BEDTIME 04/05/22 11/27/23 epinephrine 0.15 mg/0.3 mL 0.15 mg IM DAILY PRN Allergic 04/05/22 11/27/23 injection,auto-injector Reaction losartan 25 mg tablet 25 mg PO DAILY 04/05/22 11/27/23 nitroglycerin 0.4 mg sublingual 0.4 mg sublingual Q5M PRN Chest 04/05/22 11/27/23 tablet Pain rivaroxaban 20 mg tablet (Xarelto) 20 mg PO QPM 08/05/23 11/27/23 albuterol sulfate 2.5 mg/3 mL 2.5 mg inhalation Q6H PRN 11/27/23 11/27/23 (0.083 %) solution for nebulization Shortness Of Breath metoprolol succinate 25 mg 25 mg PO QPM 11/27/23 11/27/23 tablet,extended release 24 hr Previous Rx's Medication Instructions Recorded pantoprazole 20 mg tablet,delayed 20 mg PO DAILY #30 tabs 11/27/23 release cephalexin 500 mg capsule 500 mg PO TID 7 days #21 caps 04/17/24 Allergies Allergy/AdvReac Type Severity Reaction Status Date / Time Penicillins Allergy Intermediate sick Verified 08/05/23 10:19 Alpha-Gal Allergy Unknown Verified 08/05/23 10:19 ([id number]-5,3-Gala levofloxacin [From Levaquin] Allergy ALGY-Anaphy Verified 08/05/23 10:19 laxis Sulfa (Sulfonamide AdvReac Intermediate rash Verified 08/05/23 10:19 Antibiotics) clindamycin AdvReac ADR-Vomitin Verified 08/05/23 10:19 g Review of Systems Const: Denies: fever(s), chills, body aches or change in appetite ENMT: Denies: throat pain or dental pain Card: Denies: chest pain Resp: Denies: dyspnea GI: Denies: abdominal pain, nausea or vomiting : Reports: dysuria and hematuria Musc: Denies: neck pain or back pain Skin/Breast: Denies: rash Neuro: Denies: headache(s) PFSH ED PFSH: Medical History Cellulitis of right thumb Abdominal pain Abdominal bloating Cellulitis Fever blister Hematuria Medication management Vitamin D deficiency Cerumen impaction Environmental and seasonal allergies Cerumen impaction Bacterial UTI Microscopic hematuria CAD (coronary artery disease) Lower respiratory infection Chest pain Mixed hyperlipidemia COPD (chronic obstructive pulmonary disease) GERD (gastroesophageal reflux disease) Dental infection Insect bites Oral candidiasis CVA (cerebral vascular accident) Essential hypertension Surgical History S/P insertion of iliac artery stent 3 stents right leg History of tubal ligation History of carpal tunnel surgery History of appendectomy Family History Grandfather CAD (coronary artery disease) Grandmother CAD (coronary artery disease) Father CAD (coronary artery disease) Myocardial infarction Age 50s Brother CAD (coronary artery disease) FH: CABG (coronary artery bypass surgery) Other Asthma Social History Smoking and tobacco/nicotine status: current every day tobacco/nicotine user Quit status (tobacco/nicotine): not considering quitting Second hand smoke exposure: No Alcohol intake: never Substance/Drug Use: never Physical Exam Const: COMMON NORMALS: no acute distress, patient oriented x3 and healthy appearing HENMT: COMMON NORMALS: normocephalic and atraumatic HEAD & SCALP: normocephalic and atraumatic Eye: COMMON NORMALS: conjunctivae normal CONJUNCTIVA: Yes conjunctivae normal Neck/C-Spine: COMMON NORMALS: full ROM and supple Chest: COMMONS NORMALS: normal inspection of the chest Resp: COMMON NORMALS: normal respiratory effort Cardio: COMMON NORMALS: regular rate RATE: regular rate GI: COMMON NORMALS: Normal to inspection, nondistended, normoactive bowel sounds present, Soft to palpation, non-tender and no masses PALPATION: Yes Soft to palpation Extremity: COMMON NORMALS: normal to inspection and full ROM Neuro: COMMON NORMALS: patient oriented x3, moves all extremities and no focal motor deficits Psych: COMMON NORMALS: mental status grossly normal, Normal thought process present and cooperative THOUGHT PROCESS: Normal thought process present Skin: COMMON NORMALS: no rashes or lesions noted and no wounds GENERAL SKIN EXAM: no rashes or lesions noted Course Vital Signs: Vital signs: Vital Signs Temperature 98 F 04/17/24 03:09 Pulse Rate 70 04/17/24 03:09 Respiratory Rate 18 04/17/24 03:09 Blood Pressure 121/63 04/17/24 03:09 Pulse Oximetry 97 04/17/24 03:09 MDM - Female Medical Decision Making Patient presents with UTI did give her Rocephin here we will prescribe her Keflex she stable for discharge follow-up PCP return if worsening. Medical Records I reviewed the patient's medical records. Lab Data I reviewed the patient's lab results. Laboratory Results Urine Color Red (Yellow) A 04/17/24 03:07 Urine Appearance Turbid (CLEAR) A 04/17/24 03:07 Urine pH 5.5 (5-7) 04/17/24 03:07 Ur Specific [place] 1.021 (1.005-1.030) 04/17/24 03:07 Urine Protein 2+ (Negative) A 04/17/24 03:07 Urine Glucose (UA) Negative (Normal) 04/17/24 03:07 Urine Ketones Negative (Negative) 04/17/24 03:07 Urine Blood 3+ (Negative) A 04/17/24 03:07 Urine Nitrate Negative (Negative) 04/17/24 03:07 Urine Bilirubin 1+ (Negative) H 04/17/24 03:07 Urine Urobilinogen 1.0 mg/dL (Negative) 04/17/24 03:07 Ur Leukocyte Esterase 3+ (Negative) A 04/17/24 03:07 Urine RBC Too numerous to cnt /hpf (0-2) H 04/17/24 03:07 Urine WBC Too numerous to cnt /hpf (0-5) H 04/17/24 03:07 Ur Squamous Epith Cells 6-10 /hpf (0-5) 04/17/24 03:07 Amorphous Sediment Not Reportable 04/17/24 03:07 Urine Bacteria 1+ /hpf (NONE) H 04/17/24 03:07 Hyaline Casts 0-4 /lpf H 04/17/24 03:07 No radiology studies performed this visit Discharge Plan Discharge Patient Disposition: Home Clinical Impression: Urinary tract infection Condition: Stable Prescriptions: New cephalexin 500 mg capsule 500 mg PO TID 7 Days Qty: 21 0RF No Action epinephrine 0.15 mg/0.3 mL Auto-Injector 0.15 mg IM DAILY PRN (Reason: Allergic Reaction) Rx Instructions: do not exceed 12 doses per 24 hrs nitroglycerin 0.4 mg Tablet, Sublingual 0.4 mg SUBLINGUAL Q5M PRN (Reason: Chest Pain) Rx Instructions: do not exceed 3 doses per episode atorvastatin 40 mg tablet 40 mg PO BEDTIME losartan 25 mg tablet 25 mg PO DAILY albuterol sulfate 90 mcg/actuation HFA aerosol inhaler 2 puff inhalation Q6H PRN (Reason: Shortness Of Breath Or Wheezing) Xarelto 20 mg tablet 20 mg PO QPM albuterol sulfate 2.5 mg /3 mL (0.083 %) solution for nebulization 2.5 mg inhalation Q6H PRN (Reason: Shortness Of Breath) metoprolol succinate 25 mg tablet extended release 24 hr 25 mg PO QPM pantoprazole 20 mg tablet,delayed release (DR/EC) 20 mg PO DAILY Qty: 30 0RF Discharge Orders: Discharge ED (Routine); Ordered 04/17/24 Ordered By: Nicol Pza Referrals: Vandana Malcolm [Primary Care Provider] - 4-7 days Discharge Diet: Advance as tolerated Discharge Activity: Resume usual activity Patient Instructions: Urinary Tract Infection in Women (ED) Coding Level of Care Code ED Environmental Compliance Officer for Briana Chan
[2024-04-17 03:15] VITALS: BP 123/66; PULSE 71; O2SAT 97
[2024-04-17 03:17] LABS: Bilirubin Urine 1+ (Negative); Blood Urine 3+ (Negative); Glucose Urine UA Negative (Normal); Ketones Urine Negative (Negative); Leukocyte Esterase Urine 3+ (Negative); Nitrate Urine Negative (Negative); Protein Urine 2+ (Negative); Specific Gravity, Urine 1.021 (1.005-1.030); Urine Appearance Turbid (CLEAR); pH Urine 5.5 (5-7)
[2024-04-17 03:22] LABS: Add Urine Microscopic? YES; Bacteria Urine 1+ /hpf; Hyaline Casts Urine 0-4 /lpf; Universal Test for UA Present (0)
[2024-04-17 03:31] LABS: Add Urine Culture? Yes; RBC Urine TOO NUMEROUS TO CNT /hpf (0-2); Urine Color Red (Yellow); WBC Urine TOO NUMEROUS TO CNT /hpf (0-5)
[2024-04-17 03:45] VITALS: PULSE 72; O2SAT 98
[2024-04-17] MEDS: cefTRIAXone 1,000 MG in water for injection-sterile 2.1 ML 2.1 MG IM (03:46)
[2024-04-17 04:20] VITALS: PULSE 79; O2SAT 96
[2024-04-17 04:48] VITALS: BP 105/66; PULSE 70; O2SAT 98
== END 2024-04-17 04:45 | disposition home or self-care (01) ==
PROVIDERS: Emergency Provider Emergency Medicine; PCP Registered Nurse
DX: N39.0 Urinary tract infection, site not specified (principal); Z72.0 Tobacco use; I25.10 Atherosclerotic heart disease of native coronary artery without angina pectoris; E78.2 Mixed hyperlipidemia; J44.9 Chronic obstructive pulmonary disease, unspecified; Z86.73 Personal history of transient ischemic attack (TIA), and cerebral infarction without residual deficits; I10 Essential (primary) hypertension
CPT/HCPCS: 81001; 87086; 96372; 99284; J0696

== ENCOUNTER 2024-04-25 18:12 | Emergency (ER) | payer MEDICARE, MEDICAID, SELFPAY ==
[2024-04-25] VITALS (8 sets, daily range): BP systolic 104–131; BP diastolic 59–73; PULSE 63–84; RESP 18–26; TEMP 36.8; O2SAT 92–100; BMI 16.9
--- NOTE | 2024-04-25 18:29 | ECG_ITS ---
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 Measurements Intervals [place] Rate: 81 P: 79 MI: 148 QRS: 80 QRSD: 92 T: 78 QT: 383 QTc: 446 Interpretive Statements SINUS RHYTHM WITH OCCASIONAL SUPRAVENTRICULAR PREMATURE COMPLEXES Compared to ECG 11/27/2023 13:01:08 Sinus bradycardia no longer present Electronically Signed On 04-26-2024 18:46:19 CDT by Fernando Peoples M.D. [id number] [email or web address]
--- NOTE | 2024-04-25 18:34 | XRR_ITS ---
PROCEDURE INFORMATION: Exam: XR Chest Exam date and time: 04/25/2024 6:39 PM Age: 58 years old Clinical indication: Patient HX: Afib; Seizure; AMS TECHNIQUE: Imaging protocol: Radiologic exam of the chest. Views: 1 view. COMPARISON: CR XR chest 1V portable [id number] 08/05/2023 10:41 AM FINDINGS: Lungs: Biapical scarring. No consolidation. Pleural spaces: Unremarkable. No pleural effusion. No pneumothorax. Heart/Mediastinum: Unremarkable. No cardiomegaly. Bones/joints: Unremarkable. XR/XR chest 1V portable [id number] IMPRESSION: No acute findings.
--- NOTE | 2024-04-25 18:34 | CTR_ITS ---
PROCEDURE INFORMATION: Exam: CT Head Without Contrast Exam date and time: 04/25/2024 6:55 PM Age: 58 years old Clinical indication: Altered mental status/memory loss; Other: Seizures; Additional info: Sz TECHNIQUE: Imaging protocol: Computed tomography of the head without contrast. Radiation optimization: All CT scans at this facility use at least one of these dose optimization techniques: automated exposure control; mA and/or kV adjustment per patient size (includes targeted exams where dose is matched to clinical indication); or iterative reconstruction. COMPARISON: CT head wo con* [id number] 02/01/2024 9:08 AM RADIATION DOSE METRICS: Total DLP (mGy-cm): 1094.58 FINDINGS: Brain: No hemorrhage. No edema. Mild diffuse cerebral atrophy and sequela of chronic small vessel ischemic disease. No mass effect. Cerebral ventricles: No ventriculomegaly. Paranasal sinuses: Visualized sinuses are unremarkable. No fluid levels. Mastoid air cells: Visualized mastoid air cells are well aerated. Bones: Unremarkable. No acute fracture. Soft tissues: Unremarkable. CT/CT head wo con* [id number] IMPRESSION: No acute intracranial abnormality.
--- NOTE | 2024-04-25 18:35 | ECG_ITS ---
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 Measurements Intervals [place] Rate: 62 P: 74 [place]: 180 QRS: 79 QRSD: 97 T: 74 QT: 437 QTc: 447 Interpretive Statements SINUS RHYTHM Compared to ECG 04/25/2024 18:14:22 No significant changes Electronically Signed On 04-26-2024 18:45:00 CDT by Fernando Peoples M.D. [id number]
[2024-04-25] MEDS: midazolam 1 mg/mL INJ 2 mL 2 MG IVP (18:37)
--- NOTE | 2024-04-25 18:55 | ED_ITS ---
HPI - Seizure 2 General: Chief Complaint: Seizure Stated Complaint: seizure Time Seen by Provider: 04/25/24 18:18 History of Present Illness: HPI Narrative: 58-year-old female with a history of sei zure disorder. She says that she has not had a seizure in a couple of years. She has missed a couple of doses of Depakote recently she says. She had a urinary tract infection last week. She denies any fever. She had to be given 4 of Ativan by EMS, because they witnessed seizure activity apparently. Family is with the patient now, and notes that she has generalized tonic-clonic seizures, and had 1 while getting out of a car prior to EMS arrival. She did fall and hit her head in the grass during her first episode. She complains of widespread muscle aches. Evidently, she has a history of significant alpha gal allergy as well. Seizure History: Yes Related Data Home Medications Medication Instructions Recorded Confirmed albuterol sulfate 90 mcg/actuation 2 puff inhalation Q6H PRN 04/05/22 11/27/23 aerosol inhaler Shortness Of Breath Or Wheezing atorvastatin 40 mg tablet 40 mg PO BEDTIME 04/05/22 11/27/23 epinephrine 0.15 mg/0.3 mL 0.15 mg IM DAILY PRN Allergic 04/05/22 11/27/23 injection,auto-injector Reaction losartan 25 mg tablet 25 mg PO DAILY 04/05/22 11/27/23 nitroglycerin 0.4 mg sublingual 0.4 mg sublingual Q5M PRN Chest 04/05/22 11/27/23 tablet Pain rivaroxaban 20 mg tablet (Xarelto) 20 mg PO QPM 08/05/23 11/27/23 albuterol sulfate 2.5 mg/3 mL 2.5 mg inhalation Q6H PRN 11/27/23 11/27/23 (0.083 %) solution for nebulization Shortness Of Breath metoprolol succinate 25 mg 25 mg PO QPM 11/27/23 11/27/23 tablet,extended release 24 hr Previous Rx's Medication Instructions Recorded pantoprazole 20 mg tablet,delayed 20 mg PO DAILY #30 tabs 11/27/23 release divalproex 250 mg tablet,extended 250 mg PO BID #60 tabs 04/25/24 release 24 hr (Depakote ER) Allergies Allergy/AdvReac Type Severity Reaction Status Date / Time Penicillins Allergy Intermediate sick Verified 08/05/23 10:19 Alpha-Gal Allergy Unknown Verified 08/05/23 10:19 ([id number]-3,3-Gala levofloxacin [From Levaquin] Allergy ALGY-Anaphy Verified 08/05/23 10:19 laxis Sulfa (Sulfonamide AdvReac Intermediate rash Verified 08/05/23 10:19 Antibiotics) clindamycin AdvReac ADR-Vomitin Verified 08/05/23 10:19 g PFSH ED 2 PFSH: Medical History Cellulitis of right thumb Abdominal pain Abdominal bloating Cellulitis Fever blister Hematuria Medication management Vitamin D deficiency Cerumen impaction Environmental and seasonal allergies Cerumen impaction Bacterial UTI Microscopic hematuria CAD (coronary artery disease) Lower respiratory infection Chest pain Mixed hyperlipidemia COPD (chronic obstructive pulmonary disease) GERD (gastroesophageal reflux disease) Dental infection Insect bites Oral candidiasis CVA (cerebral vascular accident) Essential hypertension Surgical History S/P insertion of iliac artery stent 3 stents right leg History of tubal ligation History of carpal tunnel surgery History of appendectomy Family History Grandfather CAD (coronary artery disease) Grandmother CAD (coronary artery disease) Father CAD (coronary artery disease) Myocardial infarction Age 50s Brother CAD (coronary artery disease) FH: CABG (coronary artery bypass surgery) Other Asthma Social History Smoking and tobacco/nicotine status: current every day tobacco/nicotine user Quit status (tobacco/nicotine): not considering quitting Second hand smoke exposure: No Alcohol intake: never Substance/Drug Use: never Physical Exam 2 Const: GENERAL APPEARANCE: cooperative, lethargic (Mildly) and frail appearing (Mildly) ORIENTATION/CONSCIOUSNESS: Yes awake, Yes oriented to person, Yes oriented to place, Yes oriented to time and Yes lethargic (Mildly) HENMT: COMMON NORMALS: normocephalic, atraumatic and Normal external nose present HEAD & SCALP: normocephalic and atraumatic FACE & SINUS: normal facial exam and face symmetric NOSE: Normal external nose present Eye: COMMON NORMALS: Equal, round and reactive pupils present and EOMs intact bilaterally PUPIL: Yes Equal, round and reactive pupils present Neck/C-Spine: GENERAL: Yes trachea midline Chest: CHEST: Yes Symmetrical chest wall rise Resp: COMMON NORMALS: normal respiratory effort, No retractions, No use of accessory muscles and clear to auscultation bilaterally AUSCULTATION: clear to auscultation bilaterally Cardio: COMMON NORMALS: regular rate and regular rhythm RATE: regular rate RHYTHM: regular rhythm GI: COMMON NORMALS: Normal to inspection, nondistended, normoactive bowel sounds present Extremity: COMMON NORMALS: no pedal edema Neuro: KRISTEN COMA SCALE: document GCS findings [place] coma scale eye opening: Spontaneous Kristen coma scale verbal response: Orientated Kristen coma scale motor response: Obey commands Kristen coma scale total score: 15 S ENSORIUM/ORIENTATION: Yes oriented to person, Yes oriented to place, Yes oriented to time and Yes lethargic (Mildly) SENSORY EXAM: Yes extremities (intact) Psych: COMMON NORMALS: speech normal SPEECH: Yes normal speech Skin: COMMON NORMALS: no rashes or lesions noted GENERAL SKIN EXAM: no rashes or lesions noted Course 2 Vital Signs: Vital signs: Vital Signs Temperature 98.2 F 04/25/24 18:13 Pulse Rate 75 04/25/24 22:49 Respiratory Rate 24 H 04/25/24 21:30 Blood Pressure 104/59 04/25/24 22:49 Pulse Oximetry 92 04/25/24 22:49 Oxygen Delivery Me thod Nasal Cannula 04/25/24 21:30 Oxygen Flow Rate 2 04/25/24 19:12 MDM - Seizure MDM Narrative Medical decision making narrative: Family witnessed some seizure activity after my exam. She is given 2 of Versed here. She is placed on oxygen due to benzodiazepine administration. CT is pending. She will be infused with Depacon IV. No repeated episodes of seizure here. She is mildly lethargic after receiving Ativan. She has gotten up and walked a couple of times in the ER. She has not been taking her valproic acid. The level is 2.8. In fact, I do not see where she has had any filled recently at all. She will be represcribed this. Other laboratory is not remarkable. Chest x-ray is negative. Head CT is negative. Outpatient follow-up with neurology. She will return for repeated seizures despite treatment or any other concerns. Lab Data 04/25/24 19:10 04/25/24 19:10 Labs: Radiology Impressions Chest X-Ray 04/25/24 18:34 IMPRESSION: No acute findings. Head CT 04/25/24 18:34 IMPRESSION: No acute intracranial abnormality. Laboratory Results WBC 7.53 10^3/uL (3.29-11.43) 04/25/24 19:10 RBC 4.06 10^6/uL (3.85-5.65) 04/25/24 19:10 Hgb 12.40 g/dL (11.27-16.99) 04/25/24 19:10 Hct 36.9 % (36-47) 04/25/24 19:10 MCV 90.9 fl (85-98) 04/25/24 19:10 MCH 30.5 pg (27-33) 04/25/24 19:10 MCHC 33.6 g/dL (30-55) 04/25/24 19:10 RDW 12.9 % (12.1-15.1) 04/25/24 19:10 Plt Count 235 10^3/cmm (157-399) 04/25/24 19:10 MPV 9.4 fL (7.4-10.4) 04/25/24 19:10 Neut % (Auto) 65.0 % 04/25/24 19:10 Lymph % (Auto) 27.8 % 04/25/24 19:10 [place] % (Auto) 5.8 % 04/25/24 19:10 Eos % (Auto) 0.5 % 04/25/24 19:10 Baso % (Auto) 0.5 % 04/25/24 19:10 Neut # (Auto) 4.89 10^3/uL (1.8-7.7) 04/25/24 19:10 Lymph # (Auto) 2.1 10^3/uL (0.8-4.8) 04/25/24 19:10 [place] # (Auto) 0.4 10^3/uL (0.2-0.9) 04/25/24 19:10 Eos # (Auto) 0.0 10^3/uL (0.0-0.8) 04/25/24 19:10 Baso # (Auto) 0.0 10^3/uL (0.0-0.1) 04/25/24 19:10 Nucleated RBC % (auto) 0 % 04/25/24 19:10 Nucleated RBCs # 0.0 /100WBC 04/25/24 19:10 PT 14.60 SECONDS (12.1-14.9) 04/25/24 19:10 INR 1.10 (0.8-1.2) 04/25/24 19:10 APTT 28.1 SECONDS (23.9-36.7) 04/25/24 19:10 Specimen Type Arterial 04/25/24 19:14 Sample Site Radial, right 04/25/24 19:14 ABG pH 7.42 (7.35-7.45) 04/25/24 19:14 ABG pCO2 38.7 mmHg (35-45) 04/25/24 19:14 ABG pO2 107.0 mmHg (80.0-100.0) H 04/25/24 19:14 ABG HCO3 25.1 mmol/L (22-26) 04/25/24 19:14 ABG Base Excess 0.7 mmol/L (-2.0-2.0) 04/25/24 19:14 Dm Test Pos 04/25/24 19:14 Hematocrit 39.2 % (37-47) 04/25/24 19:14 O2 Delivery Device Nc 04/25/24 19:14 O2 Liters/Min 2.0 % 04/25/24 19:14 Elementary Librarian ID Cl 04/25/24 19:14 Sodium 141 mmol/L (136-145) 04/25/24 19:10 Potassium 3.6 mmol/L (3.5-5.1) 04/25/24 19:10 Chloride 106 mmol/L (98-107) 04/25/24 19:10 Carbon Dioxide 25 mmol/L (22-29) 04/25/24 19:10 Anion Gap 13.6 (5-19) 04/25/24 19:10 BUN 12 mg/dL (6-20) 04/25/24 19:10 Creatinine 0.6 mg/dL (0.5-0.9) 04/25/24 19:10 GFR Calculation 103.4 mL/min (90-130) 04/25/24 19:10 Glucose 94 mg/dL (65-115) 04/25/24 19:10 Calculated Osmolality 292 mOsm/kg (285-295) 04/25/24 19:10 Lactic Acid 1.4 mmol/L (0.5-2.2) 04/25/24 19:10 Calcium 8.5 mg/dL (8.5-10.5) 04/25/24 19:10 Phosphorus 3.3 mg/dL (2.5-4.5) 04/25/24 19:10 Magnesium 1.8 mg/dL (1.7-2.3) 04/25/24 19:10 Total Bilirubin 0.2 mg/dL (0.15-1.2) 04/25/24 19:10 AST 16 U/L (0-32) 04/25/24 19:10 ALT 21 U/L (0-33) 04/25/24 19:10 Alkaline Phosphatase 57 U/L (35-105) 04/25/24 19:10 Troponin T Baseline < 6 ng/L (0-10) 04/25/24 19:10 Troponin T 120 Minute 8.98 ng/L (0-10) 04/25/24 21:03 Delta Troponin T 2.03606 ABS# (0-10) 04/25/24 21:03 C-Reactive Protein 3.0 mg/L (0.0-4.9) 04/25/24 19:10 Total Protein 5.5 g/dL (6.6-8.7) L 04/25/24 19:10 Albumin 3.6 g/dL (3.5-5.2) 04/25/24 19:10 Globulin 1.9 g/dL (1.3-4.6) 04/25/24 19:10 Urine Color Yellow (Yellow) 04/25/24 20:35 Urine Appearance Clear (CLEAR) 04/25/24 20:35 Urine pH 6.5 (5-7) 04/25/24 20:35 Ur Specific [place] 1.009 (1.005-1.030) 04/25/24 20:35 Urine Protein Negative (Negative) 04/25/24 20:35 Urine Glucose (UA) Negative (Normal) 04/25/24 20:35 Urine Ketones Negative (Negative) 04/25/24 20:35 Urine Blood Non-haemolysed trace (Negative) 04/25/24 20:35 Urine Nitrate Negative (Negative) 04/25/24 20:35 Urine Bilirubin Negative (Negative) 04/25/24 20:35 Urine Urobilinogen 0.2 mg/dL (Negative) 04/25/24 20:35 Ur Leukocyte Esterase Negative (Negative) 04/25/24 20:35 Urine RBC 3-5 /hpf (0-2) 04/25/24 20:35 Urine WBC 0-5 /hpf (0-5) 04/25/24 20:35 Ur Squamous Epith Cells 0-5 /hpf (0-5) 04/25/24 20:35 Amorphous Sediment Not Reportable 04/25/24 20:35 Urine Bacteria None seen /hpf (NONE) 04/25/24 20:35 Hyaline Casts 0.40 /lpf 04/25/24 20:35 Valproic Acid 2.8 ug/mL (50-100) L 04/25/24 19:10 Ethyl Alcohol < 10 mg/dL (0-10) 04/25/24 19:10 All radiology interpretation(s) finalized by discharge Discharge Plan Discharge Patient Disposition: Home Clinical Impression: Generalized seizure Condition: Stable Prescriptions: New Depakote ER 250 mg tablet extended release 24 hr 250 mg PO BID Qty: 60 0RF No Action epinephrine 0.15 mg/0.3 mL Auto-Injector 0.15 mg IM DAILY PRN (Reason: Allergic Reaction) Rx Instructions: do not exceed 12 doses per 24 hrs nitroglycerin 0.4 mg Tablet, Sublingual 0.4 mg SUBLINGUAL Q5M PRN (Reason: Chest Pain) Rx Instructions: do not exceed 3 doses per episode atorvastatin 40 mg tablet 40 mg PO BEDTIME losartan 25 mg tablet 25 mg PO DAILY albuterol sulfate 90 mcg/actuation HFA aerosol inhaler 2 puff inhalation Q6H PRN (Reason: Shortness Of Breath Or Wheezing) Xarelto 20 mg tablet 20 mg PO QPM albuterol sulfate 2.5 mg /3 mL (0.083 %) solution for nebulization 2.5 mg inhalation Q6H PRN (Reason: Shortness Of Breath) metoprolol succinate 25 mg tablet extended release 24 hr 25 mg PO QPM pantoprazole 20 mg tablet,delayed release (DR/EC) 20 mg PO DAILY Qty: 30 0RF Discharge Orders: Discharge ED (Routine); Ordered 04/25/24 Ordered By: Heron Villanueva Referrals: Vandana Malcolm [Primary Care Provider] - 1-3 days Patient Instructions: Recurrent Seizures in Adults (ED), Opioid Safety, Pain Management Activity Restrictions/Additional Instructions: Medication as directed. See your doctor this week. Return for repeated episodes of seizure, altered mental status, fever, other concerning symptoms. Case management has been asked to make a neurology follow-up appointment for you. You should hear from them this coming week. 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
[2024-04-25] MEDS: valproic acid inj 500 MG in sodium chloride 0.9% 50 ML 55 MG IV (19:15)
[2024-04-25 19:17] LABS: Basophils % 0.5 %; Eosinophils % 0.5 %; Hematocrit 36.9 % (36-47); Lymphocytes # 2.1 10^3/uL (0.8-4.8); Lymphocytes % 27.8 %; Mean Corpuscular HGB Conc 33.6 g/dL (30-55); Mean Corpuscular Hemoglobin 30.5 pg (27-33); Mean Corpuscular Volume 90.9 fl (85-98); Mean Platelet Volume 9.4 fL (7.4-10.4); Monocytes # 0.4 10^3/uL (0.2-0.9); Monocytes % 5.8 %; Neutrophils # 4.89 10^3/uL (1.8-7.7); Nucleated Red Blood Cells % 0 %; Platelet Count 235 10^3/cmm (157-399); Red Blood Count 4.06 10^6/uL (3.85-5.65); Red Cell Distribution Width 12.9 % (12.1-15.1); White Blood Count 7.53 10^3/uL (3.29-11.43)
[2024-04-25 19:18] LABS: ABG PCO2 38.7 mmHg (35-45); ABG PH Result 7.42 (7.35-7.45); Arterial Blood Gas Hematocrit 39.2 % (37-47); Base Excess ABG 0.7 mmol/L (-2.0-2.0); Blood Gas Allen Test Pos; Blood Gas Operator Identificat CL; Blood Gas Sample Site Radial, right; Blood Gas Sample Type Arterial; HCO3 ABG 25.1 mmol/L (22-26); Oxygen Device NC
[2024-04-25] MEDS: sodium chloride 0.9% 1,000 ML 999 ML IV (19:18)
[2024-04-25 19:31] LABS: Partial Thromboplastin Time 28.1 SECONDS (23.9-36.7)
[2024-04-25 19:35] LABS: Troponin(5th) Baseline < 6 ng/L (0-10)
[2024-04-25 19:39] LABS: Alanine Aminotransferase 21 U/L (0-33); Albumin Level 3.6 g/dL (3.5-5.2); Alkaline Phosphatase 57 U/L (35-105); Anion Gap 13.6 (5-19); Aspartate Amino Transferase 16 U/L (0-32); Blood Urea Nitrogen 12 mg/dL (6-20); Calcium 8.5 mg/dL (8.5-10.5); Carbon Dioxide 25 mmol/L (22-29); Chloride 106 mmol/L (98-107); Creatinine Clr Calc Pharmacy 71.9702; Globulin 1.9 g/dL (1.3-4.6); Glomerular Filtration Rate 103.4 mL/min (90-130); Glucose 94 mg/dL (65-115); Magnesium 1.8 mg/dL (1.7-2.3); Osmolality Calculated 292 mOsm/kg (285-295); Phosphorus 3.3 mg/dL (2.5-4.5); Potassium 3.6 mmol/L (3.5-5.1); Sodium 141 mmol/L (136-145); Total Bilirubin 0.2 mg/dL (0.15-1.2); Total Protein 5.5 g/dL (6.6-8.7)
[2024-04-25 19:42] LABS: Alcohol Level < 10 mg/dL (0-10)
[2024-04-25 20:07] LABS: Lactic Sepsis W/Reflex 1.4 mmol/L (0.5-2.2)
[2024-04-25 20:28] LABS: Valproic Acid Level 2.8 ug/mL (50-100)
[2024-04-25 21:28] LABS: Bilirubin Urine Negative (Negative); Blood Urine Non-haemolysed trace (Negative); Glucose Urine UA Negative (Normal); Ketones Urine Negative (Negative); Leukocyte Esterase Urine Negative (Negative); Nitrate Urine Negative (Negative); Protein Urine Negative (Negative); Specific Gravity, Urine 1.009 (1.005-1.030); Urine Appearance Clear (CLEAR); Urine Color Yellow (Yellow); Urobilinogen Urine 0.2 mg/dL (Negative); pH Urine 6.5 (5-7)
[2024-04-25 21:34] LABS: Add Urine Microscopic? YES; Bacteria Urine None Seen /hpf; Squamous Epithelial Cell Urine 0-5 /hpf (0-5); WBC Urine 0-5 /hpf (0-5)
[2024-04-25 21:35] LABS: Troponin 5 2HR 8.98 ng/L (0-10); Troponin 5 2HR Delta 2.98001 ABS# (0-10)
--- NOTE | 2024-04-25 22:07 | PC.NURSE ---
pt assisted up out of bed, walked out of room, down hallway, to bathroom, pt urinated, and pt walked back to room. pt unsteady at this time. pt states I feel drunk
--- NOTE | 2024-04-26 08:41 | DCPLANNER ---
messaged neuro for er f/u
== END 2024-04-25 22:51 | disposition home or self-care (01) ==
PROVIDERS: Emergency Provider Emergency Medicine; PCP Registered Nurse
DX: G40.409 Other generalized epilepsy and epileptic syndromes, not intractable, without status epilepticus (principal); Z72.0 Tobacco use; I25.10 Atherosclerotic heart disease of native coronary artery without angina pectoris; E78.2 Mixed hyperlipidemia; J44.9 Chronic obstructive pulmonary disease, unspecified; Z86.73 Personal history of transient ischemic attack (TIA), and cerebral infarction without residual deficits; I10 Essential (primary) hypertension
CPT/HCPCS: 36415; 36600; 70450; 71045; 80053; 80164; 80307; 81001; 82803; 83605; 83735; 84100; 84484; 85025; 85610; 85730; 86140; 93005; 96365; 96375; 99285; J2250; J3490; J7030